=== PATIENT | female | born 1950 | race Caucasian/White ===

== ENCOUNTER → 2016-10-16 | Outpatient (CLI) | payer OTHER ==
[~2016-10-16] MED LIST: ASCO10003 PO; ASPI325T45 PO; ATEN-173 PO; AZAT50TA17 PO; AZAT50TA5 PO; CHOL2000 PO; COEN50CA22 PO; CYAN10002 SC; CYNI1000 INJ; FOLI1TAB7 PO; LEVO175T3 PO; MISCCAP80 PO; MSTSR180 PO; MULTTAB58 PO; NEUROPATHY MED; OMEP40CA PO; OMEP40CA41 PO; PRED10TA PO; PRED20TA2 PO; PROP1CAP PO; PYRI60TA2 PO; RANI300T2 PO; SERT-234 PO
--- NOTE | 2016-10-16 15:48 | MAMMOGRAPHY REPORT ---
BILATERAL DIGITAL SCREENING MAMMOGRAM WITH CAD: 10/16/2016 CLINICAL HISTORY: Routine screening. Patient has no complaints. TECHNIQUE: Current study was also evaluated with a Computer Aided Detection (CAD) system. Bilatera l CC and MLO views were obtained. COMPARISON: Comparison is made to exams dated: 09/23/2015 mammogram, 09/04/2014 mammogram, 08/21/20 13 mammogram, 09/19/2014 mammogram, 08/19/2012 mammogram, and 08/18/2011 mammogram - [facility]. BREAST COMPOSITION: There are scattered areas of fibroglandular density in both breasts. FINDINGS: No suspicious masses, calcifications, or areas of architectural distortion are noted in e ither breast. There has been no significant interval change compared to prior exams. Scattered bilat eral benign-appearing calcifications are not significantly changed. Small mass in the right inferi or breast is marked with a mole marker and consistent with a mole. IMPRESSION: ACR BI-RADS CATEGORY 2: BENIGN There is no mammographic evidence of malignancy. A 1 year screening mammogram is recommended. The p atient will receive written notification of the results. Approximately 10% of breast cancers are not detected with mammography. A negative mammographic repor t should not delay biopsy if a clinically suggestive mass is present. Nancy Rodriguez M.D. /:10/16/2016 14:42:26 Actuarial Technician: Ghislaine BEAN(R)(M), [facility] letter sent: Normal 1/2 BI-RADS Code: ACR BI-RADS Category 2: Benign
== END | disposition home or self-care (01) ==
LOC: C.MAMM 13:40
PROVIDERS: ATTEND Family Medicine
DX: Z12.31 Encounter for screening mammogram for malignant neoplasm of breast (principal)

== ENCOUNTER → 2016-10-19 | Outpatient (CLI) | payer OTHER | END | disposition home or self-care (01) | LOC: C.RDSM 14:27 | PROVIDERS: ATTEND Physical Medicine & Rehabilitation Sports Medicine | DX: Z96.641 Presence of right artificial hip joint (principal) ==

== ENCOUNTER → 2016-11-28 | Outpatient (CLI) | payer OTHER ==
--- NOTE | 2016-11-28 11:52 | DIAGNOSTIC IMAGING REPORT ---
CHEST 2 VIEWS ROUTINE CLINICAL HISTORY: Cough. Asthma. COMPARISON STUDY: Chest radiograph and chest CT August 25, 2016. FINDINGS: There are median sternotomy wires and cholecystectomy clips. There is no pneumothorax or pleural effusion. Cardiomegaly is unchanged. There is no evidence of pulmonary edema. Mild left lower lung opacity is unchanged and favors atelectasis. IMPRESSION: No acute cardiopulmonary findings. No change in appearance of the chest. Electronically signed by: See Joy M.D. 11/28/2016 11:51 AM Dictated Date/Time: 11/28/2016 11:49 AM
== END | disposition home or self-care (01) ==
LOC: C.RAD 11:06
PROVIDERS: ATTEND Family Medicine
DX: R09.89 Other specified symptoms and signs involving the circulatory and respiratory systems (principal); J45.901 Unspecified asthma with (acute) exacerbation; R05 Cough

== ENCOUNTER 2016-12-29 22:26 | Inpatient (IN) | payer OTHER ==
[~2016-12-29] VITALS: Ht 162.6 cm; Wt 89.7 kg
[~2016-12-29 22:26] MED LIST changes: -ASCO10003 PO; -CYNI1000 INJ; -FOLI1TAB7 PO; -MISCCAP80 PO; -NEUROPATHY MED; -OMEP40CA41 PO; -PRED10TA PO
[2016-12-29] MEDS ORDERED: MISCCAP80 PO (22:54)
[2016-12-29] MEDS ORDERED: OMEP40CA41 PO (22:54)
[2016-12-29] MEDS ORDERED: CYNI1000 INJ (22:54)
[2016-12-29] MEDS ORDERED: ASCO10003 PO (22:54)
[2016-12-29] MEDS ORDERED: NEUROPATHY MED (22:54)
[2016-12-29] MEDS ORDERED: PRED10TA PO (22:54)
[2016-12-29] MEDS ORDERED: SODIUM CHLORIDE 0.9% 1000ML 1,000 ML IV ONE (23:04)
[2016-12-29] MEDS ORDERED: ONDANSETRON INJ 2 MG/ML 2 ML VIAL IV STA (23:04)
[2016-12-29] MEDS ORDERED: MoRPHine SULFATE 4 MG/ML 1 ML CARP\\VIAL IV STA (23:04)
[2016-12-29] MEDS ORDERED: SODIUM CHLORIDE 0.9% 1000ML 1,000 ML IV STA (23:04)
--- NOTE | 2016-12-29 23:06 | EMERGENCY ROOM VISIT NOTE ---
History Report prepared by James: Amos Shaw Under the Supervision of: Dr. Ronald Ring M.D. First contact with patient: 22:57 Chief Complaint: ABDOMINAL PAIN Stated Complaint: SEVERE PAIN IN STOMACH AND BACK Nursing Triage Summary: pt reports pain in abdomen and wraps around to back since 1700, worsened after eatin pizza around 1900 + [place] History of Present Illness The patient is a 66 year old female who presents to the Emergency Room with complaints of severe RUQ and LUQ abdominal pain that began 6 hours ago. The patient has had this pain before, but it has never been this severe or lasted this long. She is also having RLQ and LLQ abdominal pain that is not nearly as severe as the upper section. Her pain is radiating into her back as well. She has been vomiting secondary to the pain. The patient states that eating made her symptoms worse. She had an EMG study done today and was told that she may be in the early stages of diabetes. She has been on Prednisone for the past 16 years. She denies any fever, shortness of breath, chest pain, urinary symptoms, or any bowel trouble. She has a vast past medical history that includes a hysterectomy, cholecystectomy, and an appendectomy. Source of History: patient, family Onset: 6 hours ago Position: abdomen (upper quadrant) Symptom Intensity: severe Timing: constant Modifying Factors (Worsening): eating Associated Symptoms: + back pain, + vomiting, No SOB, No chest pain, No diarrhea, No fevers, No hematochezia, No melena, No urinary symptoms Review of Systems See HPI for pertinent positives & negatives. A total of 10 systems reviewed and were otherwise negative. Past Medical & Surgical Medical Problems: (1) Abdominal pain (2) Cholecystectomy (3) Deep venous thrombosis (4) diverticulosis (5) Gastroesophageal reflux disease (6) Hemorrhoids (7) History of - peptic ulcer (8) History of - tubal ligation (9) Hysterectomy (10) Intractable nausea and vomiting (11) Myasthenia gravis Old medical records were reviewed. Nurse's notes were reviewed and I agree with. Family History Cancer Diabetes mellitus Gallbladder disease Heart disease Hypertension Social History Smoking Status: Never Smoker Alcohol Use: none Drug Use: none Marital Status: single Housing Status: lives alone Occupation Status: disabled Current/Historical Medications Scheduled Ascorbic Acid (Vitamin C), 1,000 MG PO QAM Aspirin (Aspirin), 1 TAB PO QAM Atenolol (Tenormin), 12.5 MG PO BID Azathioprine (Imuran), 50 MG PO HS Azathioprine (Imuran), 25 MG PO QAM Cholecalciferol (Vitamin D3), 1 CAP PO QAM Coenzyme Q10 (Ubidecarenone) (Coq10), 1 CAP PO DAILY Cyanocobalamin (Cyanocobalamin), 1,000 MCG INJ Mo Levothyroxine Sodium (Levothyroxine Sodium), 1 TAB PO QAM Multiple Vitamin (Multivitamin), 1 TAB PO DAILY Omeprazole (Prilosec), 40 MG PO QAM Prednisone (Prednisone), 10 MG PO QAM Probiotic Product (Probiotic), 1 CAP PO QAM Propafenone Hcl (Rythmol Sr), 425 MG PO BID Pyridostigmine [place] (Mestinon), 60 MG PO QID Pyridostigmine [place] (Mestinon Timespan), 180 MG PO HS Ranitidine (Zantac), 300 MG PO HS Sertraline (Zoloft), 100 MG PO QAM Miscellaneous Medications [Neuropathy Med] Allergies Coded Allergies: Propoxyphene (Verified Allergy, Mild, MUSCLE PAIN, 12/29/16) Statins (Verified Allergy, Unknown, WEAKNESS, 12/29/16) Physical Exam Vital Signs Date Time Temp Pulse Resp B/P Pulse Ox O2 Delivery O2 Flow Rate FiO2 12/30/16 01:32 72 18 145/68 95 Room Air 12/29/16 23:49 62 18 135/59 97 Room Air 12/29/16 23:17 87 18 138/44 96 Room Air 12/29/16 22:32 36.5 94 18 154/93 97 Room Air Physical Exam General: Mildly uncomfortable appearing middle aged female holding an emesis bin. Well developed well nourished in no acute distress, breathing comfortably on room air. Normal speech. No respiratory distress. HEENT: Normal cephalic atraumatic. Pupils are equal round and reactive to light. Extraocular movements are intact. Oropharynx is pink with moist mucous membranes. No swelling of the mouth lips or tongue. Neck: Supple with a midline trachea. No meningeal signs or stiffness, no JVD or bruits. No Stridor. Chest: Clear to auscultation bilaterally. No wheezes or rhonchi. No increased work of breathing. Heart: regular rate and rhythm. Abdomen: Soft, mildly tender to the epigastric area, nondistended without rebound guarding or rigidity. Extremities: No cyanosis clubbing or edema. No calf tenderness or assymetry Spine/Back. Non tender to palpation. No CVA tenderness Skin: Good turgor without rashes. Neurologic exam: Cranial nerves two through 12 are intact. Motor and sensation are intact and symmetrical throughout. Medical Decision & Procedures ER Provider Diagnostic Interpretation: Radiology results as stated below per my review and radiologist interpretation: CHEST X-RAY: Impression: No pneumothorax, failure, or infiltrate. Per me CT ABDOMEN & PELVIS: Compared to CT abdomen and pelvis 04/21/2016 Dilated, thick-walled distal small bowel loops with associated mesenteric edema. Findings are likely due to enteritis, infectious or inflammatory. Obstruction at the ileocecal valve is in the differential. The colon is decompressed. There are a few colonic diverticula, but no CT evidence of acute diverticulitis. Small hiatal hernia. The appendix is not reliably identifies and may be surgically absent. Cholecystectomy. No CT evidence of acute pancreatitis. No urinary obstruction. Trace free fluid. No free air. Radiologist: Laura Frank M.D. Laboratory Results Test 12/29/16 22:40 12/29/16 22:44 Urine Color DK YELLOW Urine Appearance CLOUDY (CLEAR) Urine pH 5.0 (4.5-7.5) Urine Specific [place] 1.034 (1.000-1.030) Urine Protein TRACE (NEG) Urine Glucose (UA) NEG (NEG) Urine Ketones 1+ (NEG) Urine Occult Blood NEG (NEG) Urine Nitrite NEG (NEG) Urine Bilirubin NEG (NEG) Urine Urobilinogen NEG (NEG) Urine Leukocyte Esterase NEG (NEG) Urine WBC (Auto) 1-5 /hpf (0-5) Urine RBC (Auto) 0-4 /hpf (0-4) Urine Hyaline Casts (Auto) 1-5 /lpf (0-5) Urine Epithelial Cells (Auto) 5-10 /lpf (0-5) Urine Bacteria (Auto) NEG (NEG) Urine Crystals CALCIUM OXALATE (NONE Urine Mucus PRESENT (NONE PRSENT) RDW Standard Deviation 50.1 fL (36.4-46.3) RDW Coefficient of Variation 16.8 % (11.5-14.5) White Blood Count 14.85 K/uL (4.8-10.8) Red Blood Count 4.14 M/uL (4.2-5.4) Hemoglobin 10.7 g/dL (12.0-16.0) Hematocrit 34.1 % (37-47) Mean Corpuscular Volume 82.4 fL (80-100) Mean Corpuscular Hemoglobin 25.8 pg (25-34) Mean Corpuscular Hemoglobin Concent 31.4 g/dl (32-36) Platelet Count 344 K/uL (130-400) Mean Platelet Volume 10.8 fL (7.4-10.4) Neutrophils (%) (Auto) 79.3 % Lymphocytes (%) (Auto) 9.9 % Monocytes (%) (Auto) 9.3 % Eosinophils (%) (Auto) 0.6 % Basophils (%) (Auto) 0.3 % Neutrophils # (Auto) 11.78 K/uL (1.4-6.5) Lymphocytes # (Auto) 1.47 K/uL (1.2-3.4) Monocytes # (Auto) 1.38 K/uL (0.11-0.59) Eosinophils # (Auto) 0.09 K/uL (0-0.5) Basophils # (Auto) 0.04 K/uL (0-0.2) Immature Granulocyte % (Auto) 0.6 % Immature Granulocyte # (Auto) 0.09 K/uL (0.00-0.02) Est Creatinine Clear Calc Drug Dose 50.7 ml/min Estimated Average Glucose 126 mg/dl Hemoglobin A1c 6.0 % (4.5-5.6) Total Bilirubin 0.3 mg/dl (0.2-1) Direct Bilirubin < 0.1 mg/dl (0-0.2) Aspartate Amino Transf (AST/SGOT) 15 U/L (15-37) Alanine Aminotransferase (ALT/SGPT) 31 U/L (12-78) Alkaline Phosphatase 60 U/L (45-117) Total Protein 7.5 gm/dl (6.4-8.2) Albumin 4.1 gm/dl (3.4-5.0) Lipase 156 U/L (73-393) Laboratory studies as stated above per my review. Medications Administered Medications (Trade) Dose Ordered Sig/Baldo Route Start Time Stop Time Status Last Admin Dose Admin Sodium Chloride 1,000 ml @ 999 mls/hr Q1H1M STAT IV 12/29/16 23:04 12/30/16 00:04 DC 12/29/16 23:12 999 MLS/HR Sodium Chloride (Nss 1000ml) 1,000 ml @ 200 mls/hr Q5H ONCE IV 12/29/16 23:04 12/30/16 03:07 DC 12/30/16 00:09 200 MLS/HR Ondansetron HCl (Zofran Inj) 4 mg NOW STAT IV 12/29/16 23:04 12/29/16 23:05 DC 12/29/16 23:11 4 MG Morphine Sulfate (MoRPHine SULFATE INJ) 4 mg NOW STAT IV 12/29/16 23:04 12/29/16 23:05 DC 12/29/16 23:11 4 MG Morphine Sulfate (MoRPHine SULFATE INJ) 4 mg NOW STAT IV 12/30/16 00:24 12/30/16 00:25 DC 12/30/16 00:28 4 MG Morphine Sulfate (MoRPHine SULFATE INJ) 4 mg NOW STAT IV 12/30/16 01:23 12/30/16 01:24 DC 12/30/16 01:31 4 MG ECG Indication: abdominal pain Rate (beats per minute): 69 Rhythm: normal sinus Findings: nonspecific-ST abn, other (nonspecific - T wave abnormalities) Comparison ECG Date: 25 Aug 2016 Change: no significant change ED Course 2257: Past medical records reviewed. The patient was evaluated in room B10, and a complete history and physical examination were performed. 2304: Morphine Sulfate 4 mg IV, Zofran Inj 4 mg IV, Sodium Chloride 1000 ml @ 200 mls/hr IV, Sodium Chloride 1000 ml @ 999 mls/hr IV 0005: The patient feels better after the medications. 0024: Morphine Sulfate 4 mg IV 0120: The patient requested more pain medications. She will be evaluated further as an inpatient. 0123: Morphine Sulfate 4 mg IV 0142: Upon reevaluation, the patient is resting. I discussed the results and treatment plan with the patient. She verbalized agreement of the treatment plan. The patient will be evaluated by Dr. Lemuel PUTNAM, for further management. Medical Decision Differentials include infection, electrolyte or metabolic abnormality, pancreatitis, bowel obstruction, gastritis, gastroparesis, acute coronary syndrome, and UTI. This patient comes in as described above. She was placed in room B 10. She is here for treatment and evaluation of epigastric abdominal pain. She feels full and has had some nausea. This came on at 5:00. her gallbladder from previously removed. I did review her chart she's had symptoms like this in the past and had a nuclear medicine study last year which showed normal gastric emptying. She did have a thoracic CT done within the last year and there is no aneurysm at the time. IV access established was hydrated with IV normal saline. EKG, chest x-ray, multiple blood testing was obtained. She was given IV morphine 4 mg and Zofran 4 mg IV for pain and nausea management. She was reassessed frequently. Her white count is mildly elevated. She's no significant electrode and metabolic abnormalities. She has nothing she has liver gallbladder pancreas disease. Her gallbladder has been previously removed. I did a CAT scan she does have nonspecific enteritis. She has received several doses of IV pain medication. I do think needs to be admitted for IV hydration and further treatment and evaluation. I have consulted the hospitalist. Consults Time Called: 0140 Consulting Physician: Dr. Lemuel PUTNAM Returned Call: [phone] They will be evaluating the patient for further management. Impression Primary Impression: Enteritis Additional Impressions: Vomiting Epigastric abdominal pain Scribe Attestation The scribe's documentation has been prepared under my direction and personally reviewed by me in its entirety. I confirm that the note above accurately reflects all work, treatment, procedures, and medical decision making performed by me. Departure Information Dispostion Being Evaluated By Hospitalist Referrals Deng Lezama D.O. (PCP) Patient Instructions My [facility] Problem Qualifiers
[2016-12-29 23:10] LABS: BASO % 0.3 %; BASO ABS # 0.04 K/uL (0-0.2); COMPLETE YES; EOS % 0.6 %; HEMATOCRIT 34.1 % (37-47); IG% 0.6 %; LYMPH % 9.9 %; LYMPH ABS # 1.47 K/uL (1.2-3.4); MEAN CELL VOLUME 82.4 fL (80-100); MEAN CORPUSCULAR HEMOGLOBIN 25.8 pg (25-34); MEAN CORPUSCULAR HGB CONC 31.4 g/dl (32-36); MEAN PLATELET VOLUME 10.8 fL (7.4-10.4); MONO % 9.3 %; NEUT % 79.3 %; PLATELET COUNT 344 K/uL (130-400); RED BLOOD COUNT 4.14 M/uL (4.2-5.4); WHITE BLOOD COUNT 14.85 K/uL (4.8-10.8)
[2016-12-29 23:23] LABS: ALT/SGPT 31 U/L (12-78); AST/SGOT 15 U/L (15-37); BLOOD UREA NITROGEN 18 mg/dl (7-18); BUN/CREATININE RATIO 14.9 (10-20); CALCIUM 9.7 mg/dl (8.5-10.1); CARBON DIOXIDE 24 mmol/L (21-32); CHLORIDE 109 mmol/L (98-107); GLUCOSE 114 mg/dl (70-99); POTASSIUM 3.9 mmol/L (3.5-5.1); SODIUM 146 mmol/L (136-145)
[2016-12-29 23:26] LABS: ALKALINE PHOSPHATASE 60 U/L (45-117)
[2016-12-30] MEDS ORDERED: MoRPHine SULFATE 4 MG/ML 1 ML CARP\\VIAL IV STA ×2 (00:24→01:23)
[2016-12-30] MEDS ORDERED: OPTIRAY 320 IV PRN (00:30)
[2016-12-30] MEDS ORDERED: MAGNESIUM HYDROXIDE SUSP 30 ML UDC PO PRN (02:00)
[2016-12-30] MEDS ORDERED: ONDANSETRON INJ 2 MG/ML 2 ML VIAL IV PRN (02:00)
[2016-12-30] MEDS ORDERED: POLYETHYLENE (MIRALAX) 17 GM PACK PO PRN (02:00)
[2016-12-30] MEDS ORDERED: ALUMINUM/MAGNESIUM/SIMETH (MAALOX MAX) 30 ML UDC PO PRN (02:00)
[2016-12-30] MEDS ORDERED: ACETAMINOPHEN 325 MG TAB PO PRN (02:00)
[2016-12-30] MEDS ORDERED: ZOLPIDEM TARTRATE 5 MG TAB PO PRN (02:00)
--- NOTE | 2016-12-30 02:16 | History and Physical ---
History & Physical Date & Time of Service: Dec 30, 2016 at 02:00 Chief Complaint: Severe Pain In Stomach And Back Primary Care Physician: Deng Lezama D.O. History of Present Illness Source: patient, family Cassidy Cisneros is a 66 yo F with myasthenia gravis, who is s/p cholecystectomy , hysterectomy, and appendectomy who presents with severe abdominal pain, nausea , and vomiting since 5pm yesterday. She reports she was sitting, had severe pain in the epigastrium, and then noticed it spread laterally in her abdomen. She had a formed bowel movement at that time. She ate a piece of pizza (which her daughter also ate, and she is fine) and noticed the pain got worse in severity. She was vomiting at home, then stopped upon receiving Zofran. She feels thirsty but that her pain is still intermittent, to a lesser severity but present and concerning for her. Past Medical/Surgical History Medical Problems: (1) Cholecystectomy Status: Resolved (2) Deep venous thrombosis Status: Resolved (3) diverticulosis Status: Chronic (4) Gastroesophageal reflux disease Status: Chronic (5) Hemorrhoids Status: Chronic (6) History of - peptic ulcer Status: Resolved (7) History of - tubal ligation Status: Resolved (8) Hysterectomy Status: Resolved (9) Myasthenia gravis Status: Chronic Family History Cancer Diabetes mellitus Gallbladder disease Heart disease Hypertension Social History Smoking Status: Never Smoker Drug Use: none Marital Status: single Occupational Status: disabled Immunizations History of Influenza Vaccine: No Influenza Vaccine Date: Jul 13, 2008 History of Tetanus Vaccine?: No History of Pneumococcal: No History of Hepatitis B Vaccine: No Multi-Drug Resistant Organisms History of MDRO: No Allergies Coded Allergies: Propoxyphene (Verified Allergy, Mild, MUSCLE PAIN, 12/29/16) Statins (Verified Allergy, Unknown, WEAKNESS, 12/29/16) Home Medications Scheduled Ascorbic Acid (Vitamin C), 1,000 MG PO QAM Aspirin (Aspirin), 1 TAB PO QAM Atenolol (Tenormin), 12.5 MG PO BID Azathioprine (Imuran), 50 MG PO HS Azathioprine (Imuran), 25 MG PO QAM Cholecalciferol (Vitamin D3), 1 CAP PO QAM Coenzyme Q10 (Ubidecarenone) (Coq10), 1 CAP PO DAILY Cyanocobalamin (Cyanocobalamin), 1,000 MCG INJ Mo Levothyroxine Sodium (Levothyroxine Sodium), 1 TAB PO QAM Multiple Vitamin (Multivitamin), 1 TAB PO DAILY Omeprazole (Prilosec), 40 MG PO QAM Prednisone (Prednisone), 10 MG PO QAM Probiotic Product (Probiotic), 1 CAP PO QAM Propafenone Hcl (Rythmol Sr), 425 MG PO BID Pyridostigmine [place] (Mestinon), 60 MG PO QID Pyridostigmine [place] ([place]est[place]on Timespan), 180 MG PO HS Ranitidine (Zantac), 300 MG PO HS Sertraline (Zoloft), 100 MG PO QAM Miscellaneous Medications [Neuropathy Med] Review of Systems See HPI for pertinent positives & negatives. A total of 10 systems reviewed and were otherwise negative. Physical Exam Vital Signs Date Time Temp Pulse Resp B/P Pulse Ox O2 Delivery O2 Flow Rate FiO2 12/30/16 01:32 72 18 145/68 95 Room Air 12/29/16 23:49 62 18 135/59 97 Room Air 12/29/16 23:17 87 18 138/44 96 Room Air 12/29/16 22:32 36.5 94 18 154/93 97 Room Air General Appearance: WD/WN, + moderate distress, + obese, + pertinent finding ( Cushingoid facies) Head: normocephalic, atraumatic Eyes: normal inspection ENT: hearing grossly normal Neck: supple, no JVD Respiratory/Chest: lungs clear, normal breath sounds, no respiratory distress Cardiovascular: regular rate, rhythm, no murmur, normal peripheral pulses Abdomen/GI: soft, + tenderness (epigastrium, LLQ, RLQ) Back: no CVA tenderness, no muscle spasm Extremities/Musculoskelatal: no calf tenderness, no pedal edema Neurologic/Psych: alert, normal mood/affect, normal reflexes, oriented x 3 Skin: no rash Diagnostics Laboratory Results Results Past 24 Hours Test 12/29/16 22:44 Range/Units White Blood Count 14.85 4.8-10.8 K/uL Red Blood Count 4.14 4.2-5.4 M/uL Hemoglobin 10.7 12.0-16.0 g/dL Hematocrit 34.1 37-47 % Mean Corpuscular Volume 82.4 80-100 fL Mean Corpuscular Hemoglobin 25.8 25-34 pg Mean Corpuscular Hemoglobin Concent 31.4 32-36 g/dl Platelet Count 344 130-400 K/uL Mean Platelet Volume 10.8 7.4-10.4 fL Neutrophils (%) (Auto) 79.3 % Lymphocytes (%) (Auto) 9.9 % Monocytes (%) (Auto) 9.3 % Eosinophils (%) (Auto) 0.6 % Basophils (%) (Auto) 0.3 % Neutrophils # (Auto) 11.78 1.4-6.5 K/uL Lymphocytes # (Auto) 1.47 1.2-3.4 K/uL Monocytes # (Auto) 1.38 0.11-0.59 K/uL Eosinophils # (Auto) 0.09 0-0.5 K/uL Basophils # (Auto) 0.04 0-0.2 K/uL RDW Standard Deviation 50.1 36.4-46.3 fL RDW Coefficient of Variation 16.8 11.5-14.5 % Immature Granulocyte % (Auto) 0.6 % Immature Granulocyte # (Auto) 0.09 0.00-0.02 K/uL Sodium Level 146 136-145 mmol/L Potassium Level 3.9 3.5-5.1 mmol/L Chloride Level 109 98-107 mmol/L Carbon Dioxide Level 24 21-32 mmol/L Anion Gap 13.0 3-11 mmol/L Blood Urea Nitrogen 18 7-18 mg/dl Creatinine 1.20 0.60-1.20 mg/dl Est Creatinine Clear Calc Drug Dose 50.7 ml/min Estimated GFR () 54.9 Estimated GFR (Non- 47.4 BUN/Creatinine Ratio 14.9 10-20 Random Glucose 114 70-99 mg/dl Calcium Level 9.7 8.5-10.1 mg/dl Total Bilirubin 0.3 0.2-1 mg/dl Direct Bilirubin < 0.1 0-0.2 mg/dl Aspartate Amino Transf (AST/SGOT) 15 15-37 U/L Alanine Aminotransferase (ALT/SGPT) 31 12-78 U/L Alkaline Phosphatase 60 45-117 U/L Total Protein 7.5 6.4-8.2 gm/dl Albumin 4.1 3.4-5.0 gm/dl Lipase 156 73-393 U/L Microbiology Results 12/29/16 Urine Culture, Received Pending Diagnostic Radiology CT Report: ([facility]) - nonspecific findings (gastroenteritis, inflammation) with mesenteric edema. obstruction at ileocecal valve is in differential. 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 Differential includes : bowel obstruction, peptic ulcer, reflux, hernia, or gastroenteritis. Plan: Abdominal pain - Continue morphine 4mg IV q4h, adjust accordingly in AM Nausea/vomiting - Continue Zofran - IV fluids Myasthenia gravis - Continue home neostigmine - Will provide stress dose steroids (20mg tomorrow) from home dose 10mg. If is not tolerating this PO, will switch to hydrocortisone IV Level of Care Med/Surg Resuscitation Status FULL RESUSCITATION VTE Prophylaxis VTE Risk Assessment Done? Y/N: Yes Risk Level: Moderate Resident Tracking Resident Involvement: Resident Care Provided Care Provided: [facility] Assessment and Plan Attending Addendum: I have physically seen and examined this patient, have directed their medical care, have supervised the medical residents activities, and agree with the H&P as noted above, with the following changes: The patient is awake, alert and oriented 3, cushingoid, lying in bed and in no acute distress. HEENT--PERRL, EOMI, mucous membranes and oropharynx dry. Neck--supple, no JVD or bruits, thyroid normal, trachea midline, no adenopathy. Heart--normal S1 and S2, no extra beats, no murmurs, rubs or gallops. Lungs--clear bilaterally with good air movement, no respiratory distress, no accessory muscle use. Abdomen--normal bowel sounds and soft, mild tenderness epigastrium, nondistended , no hernias or masses, no organomegaly. Extremities--no cyanosis, clubbing or edema. There are good distal pulses b/l. Dermatologic--normal skin turgor, normal color, warm and dry, no abnormal lymph nodes, no rash. Neurologic--cranial nerves II through XII grossly intact, motor and sensory examination normal. Rheumatologic--normal range of motion, nontender, muscles and joints. Psychiatric--normal affect. Assessment and Plan: Intractable nausea, vomiting and abdominal pain--patient be admitted to the medical floor. Will keep nothing by mouth except medications. Place on IV fluids, Zofran 4 mg IV every 6 hours when necessary, Protonix 40 mg IV daily, morphine sulfate 2-4 mg IV to 4 hours when necessary. Follow clinical examination. Her symptoms are likely brought on by eating too many nuts. The day before she ate a lot of sunflower seeds, and the day of admission she a lot of walnuts. She is advised to avoid excess amounts of these in the future. Myasthenia gravis--continue as a diaphragm 25 mg by mouth every morning and 50 mg by mouth at bedtime, Mestinon 60 mg by mouth 4 times a day and Mestinon Timespan 180 mg by mouth at bedtime. We'll increase prednisone from 10 mg to 20 mg by mouth every morning for stress dose. Hypertension/dysrhythmia--continue atenolol 12.5 mg by mouth twice a day, and Rythmol SR 425 mg by mouth twice a day. Hypothyroidism--continue levothyroxine sodium at 175g by mouth daily. GERD--change omeprazole 40 mg by mouth every morning to pantoprazole 40 mg by mouth every morning, and Zantac 300 mg by mouth at bedtime. Depression--continue sertraline 100 mg by mouth every morning.
[2016-12-30 02:35] LABS: URINE APPEARANCE CLOUDY (CLEAR); URINE BILIRUBIN NEG (NEG); URINE COLOR DK YELLOW; URINE NITRITE NEG (NEG); URINE SPECIFIC GRAVITY 1.034 (1.000-1.030); UROBILINOGEN NEG (NEG)
[2016-12-30 02:38] LABS: MANUAL MICROSCOPIC REQUIRED? NO; REVIEW REQ? YES
[2016-12-30 02:45] VITALS: BP 154/75; PULSE 68; TEMP 37; O2SAT 95; Ht 162.6 cm; Wt 89.7 kg
[2016-12-30 02:50] LABS: URINE MUCUS PRESENT (NONE PRSENT)
[2016-12-30 02:56] VITALS: BP 154/75; PULSE 68; TEMP 37; O2SAT 93
[2016-12-30] MEDS: FAMOTIDINE IV INJ 20 MG in DEXTROSE 5% 100ML 100 ML IV SCH ×2 (04:19→17:11)
[2016-12-30] MEDS: METRONIDAZOLE / NSS 500 MG in PREMIXED NSS 100 ML IV SCH ×3 (05:42→22:21)
[2016-12-30] MEDS: LEVOTHYROXINE 175 MCG TAB PO SCH (06:02)
[2016-12-30] MEDS: CIPROFLOXACIN / D5W 400 MG in PREMIXED IN D5W 200 ML IV SCH ×2 (06:02→18:17)
[2016-12-30 06:20] LABS: PROTHROMBIN TIME (PATIENT) 10.3 SECONDS (9.0-12.0)
--- NOTE | 2016-12-30 06:29 | CONSULTATION REPORT ---
DATE OF CONSULTATION: 12/30/2016 REASON FOR CONSULTATION: Abdominal pain, nausea and vomiting. HISTORY OF PRESENT ILLNESS: The patient is a 66-year-old female who was doing relatively well at home and then began to experience abdominal pain and then nausea and vomiting over the past 24 hours, presenting to the Emergency Room. She did apparently have a bowel movement near the time of this happening. She is on prednisone 10 mg every day with a history of myasthenia gravis. She also has a history of cholecystectomy, hysterectomy, appendectomy and tubal ligation. She did undergo CT scan which showed some very mildly dilated small-bowel loops with some mild thickening of the distal ileum, consistent with possible enteritis, inflammatory versus infectious. She has no overt abscess noted or free air. FAMILY AND SOCIAL HISTORY: Noncontributory. ALLERGIES: SHE DOES HAVE ALLERGIES TO PROPOXYPHENE AND STATINS. REVIEW OF SYSTEMS: See HPI for positive review. Otherwise, no fever, chills, cough, shortness of breath, chest pain, diarrhea, joint pain, dysuria, fatigue, bleeding, rash. PHYSICAL EXAMINATION: GENERAL: She is in no distress. HEAD: Atraumatic. EYES: Normal sclerae. NECK: Supple. LUNGS: No respiratory distress. CARDIOVASCULAR: Regular rate and rhythm. ABDOMEN: Very mildly distended but relatively soft and nontender with normal bowel sounds. EXTREMITIES: Without edema. SKIN: Warm and dry with no rash. I did review her CAT scan. ASSESSMENT AND PLAN: A 66-year-old female admitted with abdominal pain, nausea and vomiting. The abdominal pain has improved significantly. We will continue her on IV fluids and I have added antibiotics in that she may have an infectious enteritis. We will try to check stool studies, although this may be somewhat difficult. I do not think she needs an NG tube at the present time unless she starts vomiting.
--- NOTE | 2016-12-30 06:46 | DIAGNOSTIC IMAGING REPORT ---
CHEST ONE VIEW PORTABLE CLINICAL HISTORY: CHEST PAIN dyspnea COMPARISON STUDY: 11/28/2016 FINDINGS: Mild stable cardiomegaly. Prior median sternotomy. Lungs are clear. IMPRESSION: No acute process. Mild stable cardiomegaly. Electronically signed by: Alex Oshea M.D. 12/30/2016 6:44 AM Dictated Date/Time: 12/30/2016 6:44 AM
--- NOTE | 2016-12-30 07:06 | DIAGNOSTIC IMAGING REPORT ---
ABDOMEN AND PELVIS CT WITH IV CONTRAST CT DOSE: 1078.20 mGycm HISTORY: Pain eval for obit, colitis TECHNIQUE: Multiaxial CT images of the abdomen and pelvis were performed following the use of intravenous contrast. COMPARISON STUDY: 04/21/2016 FINDINGS: Slight bibasilar interstitial prominence. Liver is uniform throughout. Prior cholecystectomy. Pancreas is unremarkable. Kidneys are negative for hydronephrosis. Mild nonobstructive ileus. This may be secondary to a nonspecific enteritis. Bladder is midline. Total right hip prosthetic. No evidence for colonic distention. IMPRESSION: Mild small bowel ileus versus enteritis. Prior cholecystectomy. Electronically signed by: Alex Oshea M.D. 12/30/2016 7:04 AM Dictated Date/Time: 12/30/2016 7:00 AM
[2016-12-30 07:09] LABS: ESTIMATED AVERAGE GLUCOSE 126 mg/dl; HA1C FLAG Normal (Normal)
[2016-12-30] MEDS ORDERED: SODIUM CHLORIDE 0.9% 1000ML 1,000 ML IV SCH (07:15)
[2016-12-30 07:24] VITALS: BP 131/56; PULSE 75; TEMP 37.1; O2SAT 92
[2016-12-30 07:50] LABS: HEMATOCRIT 28.8 % (37-47); MEAN CELL VOLUME 83.2 fL (80-100); MEAN CORPUSCULAR HEMOGLOBIN 25.4 pg (25-34); MEAN CORPUSCULAR HGB CONC 30.6 g/dl (32-36); MEAN PLATELET VOLUME 10.3 fL (7.4-10.4); PLATELET COUNT 238 K/uL (130-400); RED BLOOD COUNT 3.46 M/uL (4.2-5.4); WHITE BLOOD COUNT 8.86 K/uL (4.8-10.8)
[2016-12-30] MEDS: [UNRECOGNIZED DRUG - REMARK] SCH ×2 (07:58→08:32)
[2016-12-30 08:14] LABS: BUN/CREATININE RATIO 15.4 (10-20); CALCIUM 8.2 mg/dl (8.5-10.1); CREATININE 0.92 mg/dl (0.60-1.20); POTASSIUM 3.8 mmol/L (3.5-5.1)
[2016-12-30] MEDS: PANTOprazole INJ 40 MG in SYRINGE 0 ML IV SCH ×2 (09:21→20:55)
[2016-12-30] MEDS: ASPIRIN 325 MG ECTAB PO SCH (09:22)
[2016-12-30] MEDS: PYRIDOSTIGMINE BROMIDE 60 MG TAB PO SCH ×4 (09:22→21:00)
[2016-12-30] MEDS: AZATHIOPRINE 50 MG TAB PO SCH (09:23)
[2016-12-30] MEDS: SERTRALINE HCL 100 MG TAB PO SCH (09:23)
[2016-12-30] MEDS: HEPARIN SOD 5000 UNIT/0.5 ML CARP SQ SCH ×2 (09:35→21:10)
[2016-12-30 15:55] VITALS: BP 143/67; PULSE 64; TEMP 36.9; O2SAT 94
--- NOTE | 2016-12-30 16:49 | Family Medicine Progress Note ---
Progress Note Date of Service Dec 30, 2016. Subjective Pt evaluation today including: conversation w/ patient, physical exam, chart review, lab review, review of studies Pain: 0/10 PO Intake: improving Voiding: no voiding problems Patient's abdominal pain has resolved however still getting bouts of nausea with meals Will be advancing diet as tolerated questions and concerns addressed Constitutional: No fever Eyes: No worsening of vision ENT: No hearing loss Respiratory: No cough, No dyspnea on exertion, No shortness of breath, No sputum, No wheezing Cardiovascular: No chest pain Abdomen: + nausea, No constipation, No diarrhea, No pain, No vomiting Musculoskeletal: No joint pain Neurologic: No balance problems, No weakness Psychiatric: No depression symptoms Endo: No fatigue Skin: No rash Medications Medications Administered Medications (Trade) Dose Ordered Sig/Baldo Route Start Time Stop Time Status Last Admin Dose Admin Sodium Chloride 1,000 ml @ 999 mls/hr Q1H1M STAT IV 12/29/16 23:04 12/30/16 00:04 DC 12/29/16 23:12 999 MLS/HR Sodium Chloride (Nss 1000ml) 1,000 ml @ 200 mls/hr Q5H ONCE IV 12/29/16 23:04 12/30/16 03:07 DC 12/30/16 00:09 200 MLS/HR Ondansetron HCl (Zofran Inj) 4 mg NOW STAT IV 12/29/16 23:04 12/29/16 23:05 DC 12/29/16 23:11 4 MG Morphine Sulfate (MoRPHine SULFATE INJ) 4 mg NOW STAT IV 12/29/16 23:04 12/29/16 23:05 DC 12/29/16 23:11 4 MG Morphine Sulfate (MoRPHine SULFATE INJ) 4 mg NOW STAT IV 12/30/16 00:24 12/30/16 00:25 DC 12/30/16 00:28 4 MG Morphine Sulfate (MoRPHine SULFATE INJ) 4 mg NOW STAT IV 12/30/16 01:23 12/30/16 01:24 DC 12/30/16 01:31 4 MG Ondansetron HCl (Zofran Inj) 4 mg Q6H PRN IV 12/30/16 02:00 01/29/17 01:59 12/30/16 09:44 4 MG Heparin Sodium (Porcine) (Heparin Sq 5000 Unit/0.5ml) 5,000 unit Q12H SQ 12/30/16 07:00 01/29/17 01:59 12/30/16 09:35 5,000 UNIT Aspirin (Ecotrin Tab) 325 mg QAM PO 12/30/16 09:00 01/29/17 08:59 12/30/16 09:22 325 MG Atenolol (Tenormin Tab) 12.5 mg BID PO 12/30/16 09:00 01/29/17 08:59 12/30/16 09:23 12.5 MG Azathioprine (Imuran Tab) 25 mg QAM PO 12/30/16 09:00 01/29/17 08:59 12/30/16 09:23 25 MG Levothyroxine Sodium (Synthroid Tab) 175 mcg DAILYBB PO 12/30/16 06:00 01/29/17 06:59 12/30/16 06:02 175 MCG Miscellaneous Information (Order Awaiting Action) 1 ea QS N/A 12/30/16 08:00 12/30/16 10:33 DC 12/30/16 08:32 1 EA Pyridostigmine [place] (Mestinon Tab) 60 mg QID PO 12/30/16 09:00 01/29/17 08:59 12/30/16 13:52 60 MG Sertraline HCl (Zoloft Tab) 100 mg QAM PO 12/30/16 09:00 01/29/17 08:59 12/30/16 09:23 100 MG Miscellaneous Information 1 ea 1 ea QS N/A 12/30/16 08:00 12/30/16 10:32 DC 12/30/16 08:32 1 EA Famotidine 20 mg/ Dextrose 102 ml @ 200 mls/hr Q12H IV 12/30/16 04:00 01/29/17 03:59 12/30/16 04:19 200 MLS/HR Pantoprazole Sodium/Syringe (Protonix Inj/ Syringe) 10 ml @ 5 mls/min DAILY@ IV 12/30/16 09:00 01/29/17 08:59 12/30/16 09:21 5 MLS/MIN Prednisone 20 mg 20 mg DAILY PO 12/30/16 09:00 01/29/17 08:59 12/30/16 09:22 20 MG Ciprofloxacin/ Dextrose 400 mg/ Prmx 200 ml @ 100 mls/hr Q12H IV 12/30/16 06:00 01/09/17 05:59 12/30/16 06:02 100 MLS/HR Metronidazole 500 mg/Prmx 100 ml @ 100 mls/hr Q8 IV 12/30/16 06:00 01/09/17 05:59 12/30/16 13:52 100 MLS/HR Sodium Chloride (Nss 1000ml) 1,000 ml @ 125 mls/hr Q8H IV 12/30/16 07:15 12/31/16 07:14 12/30/16 09:21 125 MLS/HR Objective Vital Signs Date Time Temp Pulse Resp B/P Pulse Ox O2 Delivery O2 Flow Rate FiO2 12/30/16 15:55 36.9 64 16 143/67 94 Room Air 12/30/16 07:50 Room Air 12/30/16 07:24 37.1 75 18 131/56 92 Room Air 12/30/16 03:30 Room Air 12/30/16 02:56 37.0 68 18 154/75 93 Room Air 12/30/16 02:45 37.0 68 17 154/75 95 Room Air 12/30/16 02:31 71 18 140/54 96 Room Air 12/30/16 01:32 72 18 145/68 95 Room Air 12/29/16 23:49 62 18 135/59 97 Room Air 12/29/16 23:17 87 18 138/44 96 Room Air 12/29/16 22:32 36.5 94 18 154/93 97 Room Air Physical Exam General Appearance: no apparent distress Eyes: normal inspection ENT: normal ENT inspection Neck: supple Respiratory/Chest: normal breath sounds, no respiratory distress, no accessory muscle use Cardiovascular: regular rate, rhythm, no murmur Abdomen: normal bowel sounds, non tender, soft Extremities: non-tender, normal inspection, no pedal edema, no calf tenderness Neurologic/Psychiatric: alert, normal mood/affect, oriented x 3 Skin: normal color, warm/dry, no rash Lymphatic: no adenopathy Laboratory Results Results Past 24 Hours Test 12/29/16 22:40 12/29/16 22:44 12/30/16 06:01 Range/Units Urine Color DK YELLOW Urine Appearance CLOUDY CLEAR Urine pH 5.0 4.5-7.5 Urine Specific [place] 1.034 1.000-1.030 Urine Protein TRACE NEG Urine Glucose (UA) NEG NEG Urine Ketones 1+ NEG Urine Occult Blood NEG NEG Urine Nitrite NEG NEG Urine Bilirubin NEG NEG Urine Urobilinogen NEG NEG Urine Leukocyte Esterase NEG NEG Urine WBC (Auto) 1-5 0-5 /hpf Urine RBC (Auto) 0-4 0-4 /hpf Urine Hyaline Casts (Auto) 1-5 0-5 /lpf Urine Epithelial Cells (Auto) 5-10 0-5 /lpf Urine Bacteria (Auto) NEG NEG Urine Crystals CALCIUM OXALATE NONE PRSENT Urine Mucus PRESENT NONE PRSENT White Blood Count 14.85 8.86 4.8-10.8 K/uL Red Blood Count 4.14 3.46 4.2-5.4 M/uL Hemoglobin 10.7 8.8 12.0-16.0 g/dL Hematocrit 34.1 28.8 37-47 % Mean Corpuscular Volume 82.4 83.2 80-100 fL Mean Corpuscular Hemoglobin 25.8 25.4 25-34 pg Mean Corpuscular Hemoglobin Concent 31.4 30.6 32-36 g/dl Platelet Count 344 238 130-400 K/uL Mean Platelet Volume 10.8 10.3 7.4-10.4 fL Neutrophils (%) (Auto) 79.3 % Lymphocytes (%) (Auto) 9.9 % Monocytes (%) (Auto) 9.3 % Eosinophils (%) (Auto) 0.6 % Basophils (%) (Auto) 0.3 % Neutrophils # (Auto) 11.78 1.4-6.5 K/uL Lymphocytes # (Auto) 1.47 1.2-3.4 K/uL Monocytes # (Auto) 1.38 0.11-0.59 K/uL Eosinophils # (Auto) 0.09 0-0.5 K/uL Basophils # (Auto) 0.04 0-0.2 K/uL RDW Standard Deviation 50.1 51.4 36.4-46.3 fL RDW Coefficient of Variation 16.8 17.2 11.5-14.5 % Immature Granulocyte % (Auto) 0.6 % Immature Granulocyte # (Auto) 0.09 0.00-0.02 K/uL Sodium Level 146 146 136-145 mmol/L Potassium Level 3.9 3.8 3.5-5.1 mmol/L Chloride Level 109 113 98-107 mmol/L Carbon Dioxide Level 24 27 21-32 mmol/L Anion Gap 13.0 6.0 3-11 mmol/L Blood Urea Nitrogen 18 14 7-18 mg/dl Creatinine 1.20 0.92 0.60-1.20 mg/dl Est Creatinine Clear Calc Drug Dose 50.7 66.1 ml/min Estimated GFR () 54.9 75.7 Estimated GFR (Non- 47.4 65.3 BUN/Creatinine Ratio 14.9 15.4 10-20 Random Glucose 114 111 70-99 mg/dl Estimated Average Glucose 126 mg/dl Hemoglobin A1c 6.0 4.5-5.6 % Calcium Level 9.7 8.2 8.5-10.1 mg/dl Total Bilirubin 0.3 0.2-1 mg/dl Direct Bilirubin < 0.1 0-0.2 mg/dl Aspartate Amino Transf (AST/SGOT) 15 15-37 U/L Alanine Aminotransferase (ALT/SGPT) 31 12-78 U/L Alkaline Phosphatase 60 45-117 U/L Total Protein 7.5 6.4-8.2 gm/dl Albumin 4.1 3.4-5.0 gm/dl Lipase 156 73-393 U/L Prothrombin Time 10.3 9.0-12.0 SECONDS Prothromb Time International Ratio 1.0 0.9-1.1 Hepatitis C Antibody Screen NEG NEG Microbiology Results 12/29/16 Urine Culture, Received Pending Assessment and Plan 66 yo F with multiple previous abdominal surgeries and intermediate prednisone use presents with severe abdominal pain, nausea, and vomiting secondary to ileus vs enteritis Abdominal pain secondary to small bowel ileus vs enteritis - Continue morphine 4mg IV q4h, adjust accordingly in AM - general surg consult- appreciate input - cipro and flagyl cont - if patient continues to improve may consider d/c - advance diet as tolerated - d/c IVF Nausea/vomiting secondary to ileus/ enteritis - Continue Zofran - IV fluids Myasthenia gravis - Continue home neostigmine and steroid Depression - cont sertraline Hypothyroid - cont synthroid HTN - cont atenolol Resident Physician Supervision Note: I interviewed and examined the patient. Discussed with Dr. Moya and agree with findings and plan as documented in the note. Any exceptions or clarifications are listed here: None Documented By: Aleks Garcia feeling better belly doing better eating better still not back to normal yet vitals noted see EMR pleasant nad, abd mildly distended nontender no guarding no rebound no masses no organomegaly normal bowel sounds SBO - improving. as above. hopefully home tomorrow
[2016-12-30] MEDS: PROPAFENONE HCL 425 MG PO SCH (20:56)
[2016-12-30] MEDS ORDERED: AZATHIOPRINE 50 MG TAB PO SCH (21:00)
[2016-12-30] MEDS ORDERED: PYRIDOSTIGMINE BROMIDE 180 MG SUSTAINED REL TAB PO SCH (21:00)
[2016-12-30 23:55] VITALS: BP 135/68; PULSE 60; TEMP 36.8; O2SAT 92
[2016-12-31] MEDS: FAMOTIDINE IV INJ 20 MG in DEXTROSE 5% 100ML 100 ML IV SCH (03:54)
[2016-12-31] MEDS: METRONIDAZOLE / NSS 500 MG in PREMIXED NSS 100 ML IV SCH (05:40)
[2016-12-31] MEDS: LEVOTHYROXINE 175 MCG TAB PO SCH (05:40)
[2016-12-31] MEDS: CIPROFLOXACIN / D5W 400 MG in PREMIXED IN D5W 200 ML IV SCH (05:40)
[2016-12-31] MEDS: HEPARIN SOD 5000 UNIT/0.5 ML CARP SQ SCH (05:50)
[2016-12-31 05:58] LABS: BASO % 0.3 %; BASO ABS # 0.02 K/uL (0-0.2); EOS % 0.9 %; HEMATOCRIT 27.4 % (37-47); IG% 0.3 %; LYMPH % 12.1 %; LYMPH ABS # 0.89 K/uL (1.2-3.4); MEAN CELL VOLUME 82.8 fL (80-100); MEAN CORPUSCULAR HEMOGLOBIN 25.4 pg (25-34); MEAN CORPUSCULAR HGB CONC 30.7 g/dl (32-36); MEAN PLATELET VOLUME 10.1 fL (7.4-10.4); MONO % 12.5 %; NEUT % 73.9 %; PLATELET COUNT 211 K/uL (130-400); RED BLOOD COUNT 3.31 M/uL (4.2-5.4); WHITE BLOOD COUNT 7.38 K/uL (4.8-10.8)
[2016-12-31 06:35] LABS: BUN/CREATININE RATIO 11.4 (10-20); CALCIUM 8.2 mg/dl (8.5-10.1); CREATININE 0.86 mg/dl (0.60-1.20); POTASSIUM 3.4 mmol/L (3.5-5.1)
[2016-12-31 07:09] LABS: COMPLETE YES; POLYCHROMASIA 1+
[2016-12-31 07:21] VITALS: BP 141/52; PULSE 61; TEMP 36.8; O2SAT 95
[2016-12-31] MEDS ORDERED: POTASSIUM CITRATE 10 MEQ TAB PO ONE (07:30)
[2016-12-31] MEDS: PYRIDOSTIGMINE BROMIDE 60 MG TAB PO SCH ×2 (07:48→11:29)
--- NOTE | 2016-12-31 08:57 | Discharge Summary ---
Discharge Summary Date of Service Dec 31, 2016. (Leeann Moya MD) Discharge Summary Admission Date: Dec 30, 2016 at 01:57 Discharge Date: Dec 31, 2016 Discharge Disposition: Home Principal Diagnosis: ileus Immunizations: Have You Had Influenza Vaccine: No Influenza Vaccine Date: Jul 13, 2008 History of Tetanus Vaccine?: No History of Pneumococcal: No History of Hepatitis B Vaccine: No (Leeann Moya MD) Medication Reconciliation Continued Medications: Ascorbic Acid (Vitamin C) 1,000 Mg Tab 1000 MG PO QAM Aspirin (Aspirin) 325 Mg Tab 1 TAB PO QAM Atenolol (Tenormin) 25 Mg Tab 12.5 MG PO BID, 0 Refills Azathioprine (Imuran) 50 Mg Tab 50 MG PO HS, TAB 25MG DOSE IN AM 50MG DOSE IN HS Azathioprine (Imuran) 50 Mg Tab 25 MG PO QAM, TAB Cholecalciferol (Vitamin D3) 2,000 Unit Cap 1 CAP PO QAM for 90 Days, #90 CAP 3 Refills Coenzyme Q10 (Ubidecarenone) (Coq10) 50 Mg Cap 1 CAP PO DAILY Cyanocobalamin (Cyanocobalamin) 1,000 Mcg/Ml Inj 1000 MCG INJ Mo Levothyroxine Sodium (Levothyroxine Sodium) 175 Mcg Tab 1 TAB PO QAM for 90 Days, #90 TAB 3 Refills Multiple Vitamin (Multivitamin) 1 Tab Tab 1 TAB PO DAILY, TAB Omeprazole (Prilosec) 40 Mg Cap 40 MG PO QAM, CAP Prednisone (Prednisone) 10 Mg Tab 10 MG PO QAM, TAB Probiotic Product (Probiotic) 1 Cap Cap 1 CAP PO QAM Propafenone Hcl (Rythmol Sr) 425 Mg Cap 425 MG PO BID Pyridostigmine [place] (Mestinon) 60 Mg Tab 60 MG PO QID, 0 Refills Pyridostigmine [place] ([place] Timespan) 180 Mg Tabcr 180 MG PO HS Ranitidine (Zantac) 300 Mg Tab 300 MG PO HS, TAB Sertraline (Zoloft) 100 Mg Tab 100 MG PO QAM, TAB [Neuropathy Med] () Discharge Exam Patient tolerated dinner and breakfast very well and has not had any nausea she is feeling very well this morning discussed d/c and agreeable questions and concerns were addressed Review of Systems: Constitutional: No fever Eyes: No worsening of vision ENT: No hearing loss Respiratory: No cough, No dyspnea at rest, No dyspnea on exertion, No shortness of breath, No sputum, No wheezing Cardiovascular: No chest pain Abdomen: No constipation, No diarrhea, No nausea, No pain, No vomiting Musculoskeletal: No joint pain, No muscle pain Genitourinary - Female: No dysuria, No hematuria Neurologic: No balance problems, No numbness/tingling, No weakness Endocrine: No fatigue Integumentary: No rash Physical Exam: General Appearance: no apparent distress Eyes: normal inspection ENT: normal ENT inspection Neck: supple Respiratory/Chest: normal breath sounds, no respiratory distress, no accessory muscle use Cardiovascular: regular rate, rhythm, no murmur Abdomen / GI: normal bowel sounds, non tender, soft Extremities: no calf tenderness, no pedal edema Neurologic/Psychiatric: alert, normal mood/affect, oriented x 3 Skin: normal color, warm/dry, no rash Lymphatic: no adenopathy (Leeann Moya MD) Hospital Course 66 yo F with multiple previous abdominal surgeries and jail prednisone use presents with severe abdominal pain, nausea, and vomiting secondary to ileus vs enteritis. She was seen by general surgery and no intervention was recommended. Dr Mcguire did recommend empiric treatment with antibiotics however as she was doing do well over the course and she never had an elevated WBC the antibiotics were not continued on d/c. Her diet was advanced as tolerated and once nausea resolved and regular diet was tolerated she was d/c home with close follow up with PCP. Abdominal pain secondary to small bowel ileus r/t probable adhesions - general surg consult- seen by Dr Mcguire- no intervention - cipro and flagyl empirically - d/c om discharge - discussed importance of multiple small meals instead of a few large meals to help prevent future ileus Nausea/vomiting secondary to ileus/ enteritis - Zofran was received for nausea Hypokalemia - Repleted prn - repeat BMP in outpt setting in approx a week Myasthenia gravis - Continued home neostigmine and steroid Depression - cont'd sertraline Hypothyroid - cont'd synthroid HTN - cont'd atenolol Total Time Spent: Less than 30 minutes This includes examination of the patient, discharge planning, medication reconciliation, and communication with other providers. (Leeann Moya MD) Resident Physician Supervision Note: I interviewed and examined the patient. Discussed with [Griffin] and agree with findings and plan as documented in the note. Any exceptions or clarifications are listed here: [None] Documented By: Aleks Garcia feeling better eating well abdominal pain gone ready to go home vitals noted, nad abd soft ndnt no masses no guarding no rebound (+) BS SBO _ improved - stable for home, otherwise as per dr moya Total Time Spent: Less than 30 minutes (Aleks Garcia, D.O.) Discharge Instructions Please refer to the electronic Patient Visit Report (Discharge Instructions) for additional information. (Leeann Moya MD) Additional Copies To Deng Lezama D.O.
--- NOTE | 2016-12-31 09:01 | Discharge Instructions ---
Discharge Instructions Date of Service Dec 31, 2016. Admission Reason for Admission: Abdominal Pain, Intractable Nausea And Vomting Discharge Discharge Diagnosis / Problem: Ileus Discharge Goals Goal(s): Diagnostic testing, Therapeutic intervention Activity Recommendations Activity Limitations: resume your previous activity . Instructions / Follow-Up Instructions / Follow-Up As discussed, you were admitted for nausea and vomiting secondary to something called ileus. This is when part of the bowel has a hard time digesting food and can cause severe abdominal pain and nausea. We let your bowel rest and resumed your diet as tolerated. You did receive cipro and flagyl as antibiotics empirically while in the hospital however no need to continue as your are doing so well. We recommend trying to eat frequent small meals to help prevent ileus in the future and foods that have a tendency to constipate like cheese. You can still have cheese but in moderation. Please follow up with your PCP within the next week We wish you well Bonnie Moya Current Hospital Diet Patient's current hospital diet: Regular Diet Discharge Diet Recommended Diet: Regular Diet Pending Studies Studies pending at discharge: no Laboratory Results Hemoglobin A1c Test 12/29/16 22:44 Range/Units Estimated Average Glucose 126 mg/dl Hemoglobin A1c 6.0 H 4.5-5.6 % Medical Emergencies . Who to Call and When: Medical Emergencies: If at any time you feel your situation is an emergency, please call 911 immediately. . Non-Emergent Contact Non-Emergency issues call your: Primary Care Provider . . "Provider Documentation" section prepared by Leeann Moya. VTE Core Measure Inpt VTE Proph given/why not?: Treatment not indicated
[2016-12-31] MEDS: ASPIRIN 325 MG ECTAB PO SCH (09:36)
[2016-12-31] MEDS: PROPAFENONE HCL 425 MG PO SCH (09:37)
[2016-12-31] MEDS: AZATHIOPRINE 50 MG TAB PO SCH (09:37)
[2016-12-31] MEDS: SERTRALINE HCL 100 MG TAB PO SCH (09:38)
[2016-12-31] MEDS: PANTOprazole INJ 40 MG in SYRINGE 0 ML IV SCH (09:38)
[2016-12-31 09:40] VITALS: BP 118/64; PULSE 61
--- NOTE | 2016-12-31 09:51 | Clinical Documentation Query ---
RICHARD Bustillo : CLINICAL DOCUMENTATION QUERY Patient is a 66 year old female presenting with abdominal pain, nausea, and vomiting in the setting prior cholecystectomy, hysterectomy, and appendectomy. She was treated with IVF, bowel rest, analgesia, antiemetics, surgical consultation, resumption of diet. She is to be discharged to home to resume smaller, frequent meals with avoidance/limitation of constipating food. In your clinical opinion is this patient being managed for: ( ) Ileus possibly secondary to adhesions and/or enteritis ( ) Other explanation of clinical findings (Please Explain) ( ) Unable to determine (Please Define) ( ) Need to Discuss ( ) Not Agree The medical record reflects the following clinical findings, treatment, and risk factors. Clinical Indicators: As above Treatment: IVF, bowel rest, analgesia, antiemetics, surgical consultation, resumption of diet Risk Factors: Age, possible enteritis, likely adhesions/multiple intraabdominal surgeries. Please clarify and document your clinical opinion in the progress notes and discharge summary. Terms such as "probable", "suspected", "likely", "questionable", "possible", or "still to be ruled out" are acceptable. IF IN AGREEMENT, YOU MUST DOCUMENT ABOVE DIAGNOSTIC STATEMENT IN DAILY PROGRESS NOTES AND DISCHARGE SUMMARY. This document is not part of the patient's record. Thank You, Ronald Tapia RN [phone]
[2016-12-31 11:33] VITALS: BP 118/64; PULSE 61; TEMP 36.8; O2SAT 95
[2017-01-27] MEDS ORDERED: FOLI1TAB7 PO (08:39)
== END 2016-12-31 13:50 | disposition home or self-care (01) | DRG 390 ==
LOC: ENRESERVTM → ENRESERVDT → C.EDB 22:28 → C.MSW 12-30 01:57
PROVIDERS: ADMIT Hospitalist; ATTEND Hospitalist
DX: K56.5 Intestinal adhesions [bands] with obstruction (postinfection) (principal); E87.6 Hypokalemia; G70.00 Myasthenia gravis without (acute) exacerbation; I10 Essential (primary) hypertension; I49.9 Cardiac arrhythmia, unspecified; E03.9 Hypothyroidism, unspecified; K21.9 Gastro-esophageal reflux disease without esophagitis; F32.9 Major depressive disorder, single episode, unspecified; Z79.52 Long term (current) use of systemic steroids; Z79.899 Other long term (current) drug therapy

== ENCOUNTER → 2017-02-04 | Day surgery (SDC) | payer OTHER ==
[2017-01-27 08:41] VITALS: Ht 165.1 cm; Wt 90.9 kg
[~2017-02-04] VITALS: Ht 165.1 cm; Wt 90.9 kg
[~2017-02-04] MED LIST changes: +ASCO10003 PO; +ATROPINE SULFATE 0.1 MG/ML 5ML SYR IV PRN; -COEN50CA22 PO; -CYAN10002 SC; +CYNI1000 INJ; +EpHEDrine SULFATE INJ 50 MG/ML AMP IV PRN; +FOLI1TAB7 PO; +LIDOCAINE HCL 2% 2 ML VIAL (20MG/ML) ONE; -OMEP40CA PO; +OMEP40CA41 PO; +PRED10TA PO; -PRED20TA2 PO; +PROPOFOL IV EMULSION 10 MG/ML 20 ML VIAL IV ONE; +SODIUM CHLORIDE 0.9% 500ML 500 ML IV ONE
[2017-02-04 14:00] VITALS: TEMP 37
--- NOTE | 2017-02-04 14:04 | Endo History and Physical ---
History & Physical Date of Service: Feb 04, 2017. Chief Complaint: abd pain rectal bleeding Referring Physician: Dr Lezama History of Present Illness BRBPR; diarrhea; lower abd pain Past Medical History Atrial Fibrillation, Arthritis, Pulmonary Emboli, Reflux, Blood Dyscrasias, High Cholesterol, Thyroid Disease, Other Past Surgical History Hx Cardiac Surgery: Yes (CARDIAC CATH) Hx Internal Defibrillator: No Hx Pacemaker: No Hx Abdominal Surgery: Yes (BILL, OVARIAN CYST EXCISION, MADDISON) Hx of Implantable Prosthesis: No Hx Post-Op Nausea and Vomiting: Yes Hx Cancer Surgery: Yes (BCC RT/LEFT YAZIDI REMOVAL) Hx Thoracic Surgery: No Hx Orthopedic: Yes (RT BRENTNO) Hx Urinary Tract Surgery: No Family History Polyp Social History Smoking Status: Never Smoker Hx Substance Use: No Hx Alcohol Use: No Allergies Coded Allergies: Propoxyphene (Verified Allergy, Mild, MUSCLE PAIN, 01/27/17) Statins (Verified Allergy, Unknown, WEAKNESS, 01/27/17) Current Medications Reported Home Medications Medications Dose Route/Sig Max Daily Dose Days Date Category Dose Instructions Folvite (Folic Acid) 1 Mg Tab 1 Mg PO QAM 01/27/17 Reported Vitamin C (Ascorbic Acid) 1,000 Mg Tab 1,000 Mg PO QAM 12/29/16 Reported Prednisone 10 Mg Tab 10 Mg PO QAM 12/29/16 Reported Prilosec (Omeprazole) 40 Mg Cap 40 Mg PO QAM 12/29/16 Reported Cyanocobalamin 1,000 Mcg/Ml Inj 1,000 Mcg INJ MO 12/29/16 Reported Multivitamin (Multiple Vitamin) 1 Tab Tab 1 Tab PO QAM 08/25/16 Reported Imuran (Azathioprine) 50 Mg Tab 25 Mg PO QAM 08/25/16 Reported Aspirin 325 Mg Tab 1 Tab PO QAM 06/12/16 Reported Vitamin D3 (Cholecalciferol) 2,000 Unit Cap 1 Cap PO QAM 90 06/12/16 Reported Imuran (Azathioprine) 50 Mg Tab 50 Mg PO HS 06/12/16 Reported 25MG DOSE IN AM 50MG DOSE IN HS Zoloft (Sertraline HCl) 100 Mg Tab 100 Mg PO QAM 06/12/16 Reported Levothyroxine Sodium 175 Mcg Tab 1 Tab PO QAM 90 06/12/16 Reported Zantac (Ranitidine HCl) 300 Mg Tab 300 Mg PO HS 06/12/16 Reported Rythmol Sr (Propafenone Hcl) 425 Mg Cap 425 Mg PO BID 01/22/14 Reported Mestinon Timespan (Pyridostigmine [place]) 180 Mg Tabcr 180 Mg PO HS 07/24/13 Reported Tenormin (Atenolol) 25 Mg Tab 12.5 Mg PO BID 11/26/08 Reported Mestinon (Pyridostigmine [place]) 60 Mg Tab 60 Mg PO QID 11/26/08 Reported Vital Signs Weight (Kilograms): 90.91 Height (Feet): 5 Height (Inches): 5 Physical Exam AAOx3 Nls1s2 Lungs CTA Abd Soft NT/ND + BS - CCE Assessment and Plan colonoscopy with possible bx
--- NOTE | 2017-02-04 15:00 | Discharge Instructions ---
Endoscopy Patient Instructions Date / Procedure(s) Performed Feb 04, 2017. Colonoscopy Allergy Information Coded Allergies: Propoxyphene (Verified Allergy, Mild, MUSCLE PAIN, 01/27/17) Statins (Verified Allergy, Unknown, WEAKNESS, 01/27/17) Discharge Date / Findings Feb 04, 2017. 1) diverticulosis; polyps Medication Instructions Restart Stopped Medication(s): Reported Home Medications Medications Dose Route/Sig Max Daily Dose Days Date Category Dose Instructions Folvite (Folic Acid) 1 Mg Tab 1 Mg PO QAM 01/27/17 Reported Vitamin C (Ascorbic Acid) 1,000 Mg Tab 1,000 Mg PO QAM 12/29/16 Reported Prednisone 10 Mg Tab 10 Mg PO QAM 12/29/16 Reported Prilosec (Omeprazole) 40 Mg Cap 40 Mg PO QAM 12/29/16 Reported Cyanocobalamin 1,000 Mcg/Ml Inj 1,000 Mcg INJ MO 12/29/16 Reported Multivitamin (Multiple Vitamin) 1 Tab Tab 1 Tab PO QAM 08/25/16 Reported Imuran (Azathioprine) 50 Mg Tab 25 Mg PO QAM 08/25/16 Reported Aspirin 325 Mg Tab 1 Tab PO QAM 06/12/16 Reported Vitamin D3 (Cholecalciferol) 2,000 Unit Cap 1 Cap PO QAM 90 06/12/16 Reported Imuran (Azathioprine) 50 Mg Tab 50 Mg PO HS 06/12/16 Reported 25MG DOSE IN AM 50MG DOSE IN HS Zoloft (Sertraline HCl) 100 Mg Tab 100 Mg PO QAM 06/12/16 Reported Levothyroxine Sodium 175 Mcg Tab 1 Tab PO QAM 90 06/12/16 Reported Zantac (Ranitidine HCl) 300 Mg Tab 300 Mg PO HS 06/12/16 Reported Rythmol Sr (Propafenone Hcl) 425 Mg Cap 425 Mg PO BID 01/22/14 Reported Mestinon Timespan (Pyridostigmine Crockett) 180 Mg Tabcr 180 Mg PO HS 07/24/13 Reported Tenormin (Atenolol) 25 Mg Tab 12.5 Mg PO BID 11/26/08 Reported Mestinon (Pyridostigmine Crockett) 60 Mg Tab 60 Mg PO QID 11/26/08 Reported Reported Home Medications Medications Dose Route/Sig Max Daily Dose Days Date Category Dose Instructions Folvite (Folic Acid) 1 Mg Tab 1 Mg PO QAM 01/27/17 Reported Vitamin C (Ascorbic Acid) 1,000 Mg Tab 1,000 Mg PO QAM 12/29/16 Reported Prednisone 10 Mg Tab 10 Mg PO QAM 12/29/16 Reported Prilosec (Omeprazole) 40 Mg Cap 40 Mg PO QAM 12/29/16 Reported Cyanocobalamin 1,000 Mcg/Ml Inj 1,000 Mcg INJ MO 12/29/16 Reported Multivitamin (Multiple Vitamin) 1 Tab Tab 1 Tab PO QAM 08/25/16 Reported Imuran (Azathioprine) 50 Mg Tab 25 Mg PO QAM 08/25/16 Reported Aspirin 325 Mg Tab 1 Tab PO QAM 06/12/16 Reported Vitamin D3 (Cholecalciferol) 2,000 Unit Cap 1 Cap PO QAM 90 06/12/16 Reported Imuran (Azathioprine) 50 Mg Tab 50 Mg PO HS 06/12/16 Reported 25MG DOSE IN AM 50MG DOSE IN HS Zoloft (Sertraline HCl) 100 Mg Tab 100 Mg PO QAM 06/12/16 Reported Levothyroxine Sodium 175 Mcg Tab 1 Tab PO QAM 90 06/12/16 Reported Zantac (Ranitidine HCl) 300 Mg Tab 300 Mg PO HS 06/12/16 Reported Rythmol Sr (Propafenone Hcl) 425 Mg Cap 425 Mg PO BID 01/22/14 Reported Mestinon Timespan (Pyridostigmine Crockett) 180 Mg Tabcr 180 Mg PO HS 07/24/13 Reported Tenormin (Atenolol) 25 Mg Tab 12.5 Mg PO BID 11/26/08 Reported Mestinon (Pyridostigmine Crockett) 60 Mg Tab 60 Mg PO QID 11/26/08 Reported Provider Instructions Activity Restrictions - No exercising or heavy lifting for 24 hours. - Do not drink alcohol the day of the procedure. - Do not drive a car or operate machinery until the day after the procedure. - Do not make any important decisions or sign important papers in 24 hours after the procedure. Following Day: - Return to full activity which may include returning to work/school. Diet Start your diet with liquids and light foods (jello, soup, juice, toast). Then eat your usual diet if not nauseated. Treatment For Common After Affects For mild abdominal pain, bloating, or excessive gas: - Rest - Eat lightly - Lie on right side Follow-Up Information Follow-up with Dr Lezama as scheduled Anesthesia Information What You Should Know You have had a procedure that required some medicine to reduce anxiety and discomfort. This treatment is called moderate sedation. After receiving the treatment, you may be sleepy, but you will be able to breathe on your own. The effects of the treatment may last for several hours. Follow these instructions along with Activity/Diet recommendations noted above: * Do NOT do anything where dizziness or clumsiness would be dangerous. * Rest quietly at home today, then you can be up and about tomorrow. * Have a responsible person stay with you the rest of today. * You may have had an I.V. today. If so, you may take the dressing off later today. Recommendations Call your doctor if: * Trouble breathing * Continuous vomiting for more than 24 hours * Temperature above 101 degrees * Severe abdominal pain or bloating * Pain not relieved by pain medicine ordered * There is increased drainage or redness from any incision * A large amount of rectal bleeding greater than 2-3 tablespoons. (If you had a polyp/s removed or have hemorrhoids, a small amount of blood - from the rectum is to be expected.) * You have any unanswered questions or concerns. IN THE EVENT OF A SERIOUS EMERGENCY, GO TO THE NEAREST EMERGENCY ROOM Your discharge instructions were prepared by provider John Jones. Patient Instructions Signature Page Cassidy Cisneros Patient (or Guardian) Signature/Date: I have read and understand the instructions given to me by my caregivers. Caregiver/RN/Doctor Signature/Date: The above-named patient and/or guardian has received patient instructions on this date. + Original Patient Signature Page (only) stays with chart. Please make copy for patient.
--- NOTE | 2017-02-04 15:08 | GI REPORT ---
Procedure Date: 02/04/2017 2:18 PM Procedure: Colonoscopy Indications: Generalized abdominal pain, Chronic diarrhea, Hematochezia Medicines: Propofol per Anesthesia Complications: No immediate complications. Estimated blood loss: Minimal. Estimated Blood Loss: Estimated blood loss was minimal. Procedure: Pre-Anesthesia Assessment: - Prior to the procedure, a History and Physical was performed, and patient medications and allergies were reviewed. The patient's tolerance of previous anesthesia was also reviewed. The risks and benefits of the procedure and the sedation options and risks were discussed with the patient. All questions were answered, and informed consent was obtained. Prior Anticoagulants: The patient has taken no previous anticoagulant or antiplatelet agents. ASA Grade Assessment: III - A patient with severe systemic disease. After reviewing the risks and benefits, the patient was deemed in satisfactory condition to undergo the procedure. After I obtained informed consent, the scope was passed under direct vision. Throughout the procedure, the patient's blood pressure, pulse, and oxygen saturations were monitored continuously. The scope was introduced through the anus and advanced to the cecum, identified by appendiceal orifice and ileocecal valve. The colonoscopy was performed without difficulty. The patient tolerated the procedure well. The quality of the bowel preparation was good. Findings: The perianal and digital rectal examinations were normal. Pertinent negatives include normal sphincter tone, no palpable rectal lesions and no anal lesion or abnormality was detected. A 7 mm polyp was found in the ascending colon. The polyp was sessile. The polyp was removed with a cold snare. Resection and retrieval were complete. Estimated blood loss was minimal. Verification of patient identification for the specimen was done by the physician and dermatology technician using the patient's name and medical record number. A 4 mm polyp was found at 70 cm proximal to the anus. The polyp was sessile. The polyp was removed with a cold biopsy forceps. Resection and retrieval were complete. Estimated blood loss was minimal. Verification of patient identification for the specimen was done by the physician and dermatology technician using the patient's name and medical record number. A few small-mouthed diverticula were found in the sigmoid colon. The exam was otherwise without abnormality. The rectum, descending colon and ascending colon appeared normal. Biopsies were taken with a cold forceps for histology. Estimated blood loss was minimal. Verification of patient identification for the specimen was done by the physician and dermatology technician using the patient's name and medical record number. The retroflexed view of the distal rectum and anal verge was normal and showed no anal or rectal abnormalities. Impression: - One 7 mm polyp in the ascending colon, removed with a cold snare. Resected and retrieved. - One 4 mm polyp at 70 cm proximal to the anus, removed with a cold biopsy forceps. Resected and retrieved. - Diverticulosis in the sigmoid colon. - The examination was otherwise normal. - The rectum, descending colon and ascending colon are normal. Biopsied. - The distal rectum and anal verge are normal on retroflexion view. Recommendation: - Discharge patient to home (ambulatory). - Patient has a contact number available for emergencies. The signs and symptoms of potential delayed complications were discussed with the patient. Return to normal activities tomorrow. Written discharge instructions were provided to the patient. - Resume regular diet. - Await pathology results. - Return to referring physician as previously scheduled. MD John Gay MD 02/04/2017 3:07:33 PM This report has been signed electronically. Note Initiated On: 02/04/2017 2:18 PM I attest to the content of the Intraoperative Record and orders documented therein, exceptions below
[2017-02-04 15:39] VITALS: BP 150/60; PULSE 56; O2SAT 98
--- NOTE | 2017-02-04 15:45 | Anesthesiology Progress Note ---
Anesthesia Post Op Note Date & Time Feb 04, 2017 at 15:44 Vital Signs Pain Intensity: 0 Vital Signs Past 12 Hours Date Time Temp Pulse Resp B/P Pulse Ox O2 Delivery O2 Flow Rate FiO2 02/04/17 15:39 56 20 150/60 98 Room Air 02/04/17 15:19 54 20 125/45 96 Room Air 02/04/17 15:05 57 20 122/44 94 Room Air 02/04/17 14:00 37 59 18 145/70 96 Room Air Notes Mental Status: alert / awake / arousable, participated in evaluation Pt Amnestic to Procedure: Yes Nausea / Vomiting: adequately controlled Pain: adequately controlled Airway Patency, RR, SpO2: stable & adequate BP & HR: stable & adequate Hydration State: stable & adequate Anesthetic Complications: no major complications apparent
== END | disposition home or self-care (01) ==
LOC: C.GI 13:30
PROVIDERS: ATTEND Internal Medicine Gastroenterology
DX: R10.84 Generalized abdominal pain (principal); K52.9 Noninfective gastroenteritis and colitis, unspecified; K92.1 Melena; D12.2 Benign neoplasm of ascending colon; K62.0 Anal polyp; K57.30 Diverticulosis of large intestine without perforation or abscess without bleeding; F32.9 Major depressive disorder, single episode, unspecified; I48.91 Unspecified atrial fibrillation; E03.9 Hypothyroidism, unspecified; Z68.33 Body mass index [BMI] 33.0-33.9, adult; E66.9 Obesity, unspecified; Z96.641 Presence of right artificial hip joint; Z85.9 Personal history of malignant neoplasm, unspecified; Z86.711 Personal history of pulmonary embolism; Z98.890 Other specified postprocedural states; Z90.49 Acquired absence of other specified parts of digestive tract; Z83.71 Family history of colonic polyps

== ENCOUNTER → 2017-04-21 | Outpatient (CLI) | payer OTHER ==
[~2017-04-21] MED LIST changes: -ATROPINE SULFATE 0.1 MG/ML 5ML SYR IV PRN; -EpHEDrine SULFATE INJ 50 MG/ML AMP IV PRN; -LIDOCAINE HCL 2% 2 ML VIAL (20MG/ML) ONE; -PROPOFOL IV EMULSION 10 MG/ML 20 ML VIAL IV ONE; -SODIUM CHLORIDE 0.9% 500ML 500 ML IV ONE
== END | disposition home or self-care (01) ==
LOC: C.LAB1850 10:02
PROVIDERS: ATTEND Internal Medicine Endocrinology, Diabetes & Metabolism
DX: E03.8 Other specified hypothyroidism (principal)

== ENCOUNTER → 2017-06-30 | Outpatient (CLI) | payer OTHER | END | disposition home or self-care (01) | LOC: C.LAB1850 10:46 | PROVIDERS: ATTEND Internal Medicine Endocrinology, Diabetes & Metabolism | DX: E03.8 Other specified hypothyroidism (principal) ==

== ENCOUNTER → 2017-10-13 | Outpatient (CLI) | payer MEDICARE, OTHER ==
[~2017-10-13] MED LIST changes: +ASPECOTC PO; -ASPI325T45 PO; +AZAT50TA33 PO; -AZAT50TA5 PO; +COLE1TAB PO; -FOLI1TAB7 PO; +FOLI1TAB8 PO; +FOLI800T PO; +GABA-112 PO; +GABA-113 PO; +ONDA4TAB10 SL; +POTA-74 PO; +POTA99TA PO; +PRD20 PO
[2017-10-13 16:41] LABS: BASO % 0.4 %; BASO ABS # 0.04 K/uL (0-0.2); EOS % 0.7 %; EOS ABS # 0.07 K/uL (0-0.5); HEMATOCRIT 37.9 % (37-47); HEMOGLOBIN 12.3 g/dL (12.0-16.0); IG# 0.07 K/uL (0.00-0.02); LYMPH ABS # 0.51 K/uL (1.2-3.4); MEAN CELL VOLUME 87.1 fL (80-100); MEAN CORPUSCULAR HEMOGLOBIN 28.3 pg (25-34); MEAN CORPUSCULAR HGB CONC 32.5 g/dl (32-36); MEAN PLATELET VOLUME 10.8 fL (7.4-10.4); MONO % 6.4 %; MONO ABS # 0.66 K/uL (0.11-0.59); NEUT % 86.8 %; NEUT ABS # 8.95 K/uL (1.4-6.5); PLATELET COUNT 251 K/uL (130-400); RED CELL DISTRIBUTION WIDTH CV 14.4 % (11.5-14.5); RED CELL DISTRIBUTION WIDTH SD 45.6 fL (36.4-46.3)
[2017-10-13 17:14] LABS: ALBUMIN 3.7 gm/dl (3.4-5.0); ALT/SGPT 30 U/L (12-78); AST/SGOT 17 U/L (15-37); BLOOD UREA NITROGEN 11 mg/dl (7-18); CARBON DIOXIDE 27 mmol/L (21-32); CREATININE 0.84 mg/dl (0.60-1.20); GLUCOSE 98 mg/dl (70-99); POTASSIUM 4.2 mmol/L (3.5-5.1); SODIUM 140 mmol/L (136-145)
[2017-10-13 17:19] LABS: ALKALINE PHOSPHATASE 61 U/L (45-117); TOTAL PROTEIN 7.1 gm/dl (6.4-8.2)
== END | disposition home or self-care (01) ==
LOC: C.LAB 15:22
PROVIDERS: ATTEND Internal Medicine Hematology & Oncology
DX: D50.9 Iron deficiency anemia, unspecified (principal)

== ENCOUNTER → 2017-11-08 | Outpatient (CLI) | payer MEDICARE ==
[~2017-11-08] MED LIST changes: -ASPECOTC PO; +ASPI325T45 PO; -COLE1TAB PO; -FOLI800T PO; -GABA-112 PO; -GABA-113 PO; -ONDA4TAB10 SL; -POTA-74 PO; -POTA99TA PO; -PRD20 PO
== END | disposition home or self-care (01) ==
LOC: C.RDSM 19:12
PROVIDERS: ATTEND Physical Medicine & Rehabilitation Sports Medicine
DX: Z96.641 Presence of right artificial hip joint (principal)

== ENCOUNTER → 2017-11-11 | Outpatient (CLI) | payer MEDICARE, OTHER ==
--- NOTE | 2017-11-15 07:40 | MAMMOGRAPHY REPORT ---
BILATERAL DIGITAL SCREENING MAMMOGRAM TOMOSYNTHESIS WITH CAD: 11/11/2017 CLINICAL HISTORY: Routine screening. Patient has no complaints. TECHNIQUE: Breast tomosynthesis in addition to standard 2D mammography was performed. Current study was also evaluated with a Computer Aided Detection (CAD) system. COMPARISON: Comparison is made to exams dated: 10/16/2016 mammogram, 09/23/2015 mammogram, 09/04/2014 mammogram, 08/21/2013 mammogram, 08/19/2012 mammogram, and 08/18/2011 mammogram - [facility]. BREAST COMPOSITION: There are scattered areas of fibroglandular density in both breasts. FINDINGS: No suspicious masses, calcifications, or areas of architectural distortion are noted in ei ther breast. There has been no significant interval change compared to prior exams. Scattered bilater al benign-appearing calcifications are not significantly changed. IMPRESSION: ACR BI-RADS CATEGORY 2: BENIGN There is no mammographic evidence of malignancy. A 1 year screening mammogram is recommended. The pa tient will receive written notification of the results. Approximately 10% of breast cancers are not detected with mammography. A negative mammographic report should not delay biopsy if a clinically suggestive mass is present. Nancy Rodriguez M.D. ah/:11/11/2017 14:45:50 Bounty Hunter: Ghislaine ESTRADA)(M), [facility] letter sent: Normal 1/2 BI-RADS Code: ACR BI-RADS Category 2: Benign
== END | disposition home or self-care (01) ==
LOC: C.MAMM 13:35
PROVIDERS: ATTEND Psychiatry & Neurology Neurology
DX: Z12.31 Encounter for screening mammogram for malignant neoplasm of breast (principal); E55.9 Vitamin D deficiency, unspecified; E53.9 Vitamin B deficiency, unspecified; Z79.52 Long term (current) use of systemic steroids

== ENCOUNTER → 2018-01-25 | Outpatient (CLI) | payer MEDICARE ==
[~2018-01-25] MED LIST changes: +ASPECOTC PO; -ASPI325T45 PO
== END | disposition home or self-care (01) ==
LOC: C.LAB1850 11:37
PROVIDERS: ATTEND Internal Medicine Endocrinology, Diabetes & Metabolism
DX: E03.8 Other specified hypothyroidism (principal)

== ENCOUNTER 2018-02-21 12:01 | Emergency (ER) | payer MEDICARE ==
[~2018-02-21] VITALS: Ht 162.6 cm; Wt 90.0 kg
[2018-02-21 12:19] VITALS: TEMP 36.5; Ht 162.6 cm; Wt 90.0 kg
[2018-02-21] MEDS ORDERED: GABA-112 PO (12:47)
[2018-02-21] MEDS ORDERED: FOLI800T PO (12:47)
[2018-02-21] MEDS ORDERED: GABA-113 PO (12:47)
[2018-02-21] MEDS ORDERED: COLE1TAB PO (12:47)
[2018-02-21] MEDS ORDERED: PRD20 PO (12:47)
[2018-02-21] MEDS ORDERED: POTA99TA PO (12:47)
[2018-02-21 13:16] LABS: BASO % 0.2 %; BASO ABS # 0.02 K/uL (0-0.2); EOS % 1.5 %; EOS ABS # 0.14 K/uL (0-0.5); HEMATOCRIT 36.5 % (37-47); HEMOGLOBIN 12.3 g/dL (12.0-16.0); IG# 0.06 K/uL (0.00-0.02); LYMPH % 4.8 %; LYMPH ABS # 0.45 K/uL (1.2-3.4); MEAN CELL VOLUME 84.1 fL (80-100); MEAN CORPUSCULAR HEMOGLOBIN 28.3 pg (25-34); MEAN CORPUSCULAR HGB CONC 33.7 g/dl (32-36); MEAN PLATELET VOLUME 10.3 fL (7.4-10.4); MONO ABS # 0.84 K/uL (0.11-0.59); NEUT % 83.9 %; NEUT ABS # 7.78 K/uL (1.4-6.5); PLATELET COUNT 217 K/uL (130-400); RED CELL DISTRIBUTION WIDTH SD 46.5 fL (36.4-46.3); WHITE BLOOD COUNT 9.29 K/uL (4.8-10.8)
[2018-02-21] MEDS ORDERED: MoRPHine SULFATE 4 MG/ML 1 ML CARP\\VIAL IV STA (13:28)
[2018-02-21] MEDS ORDERED: SODIUM CHLORIDE 0.9% 1000ML 1,000 ML IV STA (13:28)
[2018-02-21] MEDS ORDERED: ONDANSETRON INJ 2 MG/ML 2 ML VIAL IV STA (13:28)
[2018-02-21 13:35] LABS: ALBUMIN 4.5 gm/dl (3.4-5.0); CALCIUM 8.8 mg/dl (8.5-10.1); CREATININE 0.89 mg/dl (0.60-1.20); POTASSIUM 3.1 mmol/L (3.5-5.1)
[2018-02-21 13:37] LABS: TOTAL PROTEIN 7.4 gm/dl (6.4-8.2)
--- NOTE | 2018-02-21 14:19 | DIAGNOSTIC IMAGING REPORT ---
PA CHEST RADIOGRAPH AND UPRIGHT AND SUPINE AP RADIOGRAPHS OF THE ABDOMEN CLINICAL HISTORY: N/V/D X 18 HOURS COMPARISON STUDY: Chest radiograph December 29, [address] of the abdomen and pelvis December 30, 2016. FINDINGS: Hazy left basilar opacity is likely artifactual. There are median sternotomy wires and mediastinal surgical clips. The heart is enlarged. There is no evidence for pulmonary edema. No free air is present. Cholecystectomy clips are noted. There is a single loop of mildly dilated small bowel which measures 3 cm in caliber. Right hip arthroplasty is incidentally noted. IMPRESSION: 1. No free air. 2. Single loop of mildly dilated small bowel. A partial small bowel obstruction would be difficult to exclude but is considered unlikely. 3. No acute cardiopulmonary findings. Electronically signed by: See Joy M.D. 02/21/2018 2:17 PM Dictated Date/Time: 02/21/2018 2:13 PM
[2018-02-21] MEDS: POTASSIUM CHLR 10 MEQ / WTR 100 ML IV STA ×2 (15:13→16:01)
[2018-02-21] MEDS ORDERED: PYRIDOSTIGMINE BROMIDE 60 MG TAB PO ONE (15:15)
[2018-02-21] MEDS ORDERED: POTASSIUM CHLORIDE 10 MEQ TABCR PO STA (16:45)
[2018-02-21] MEDS ORDERED: ONDA4TAB10 SL (16:48)
[2018-02-21] MEDS ORDERED: POTA-74 PO (16:48)
[2018-02-21 16:50] VITALS: BP 134/72; PULSE 72; O2SAT 95
--- NOTE | 2018-02-21 16:50 | EMERGENCY ROOM VISIT NOTE ---
History First contact with patient: 13:08 Chief Complaint: NAUSEA Stated Complaint: NAUSEA, DIAHREA, STOM PAIN, BACK PAIN Nursing Triage Summary: pt reports nausea and vomitting since last night states she has been unable to take her medications she reports HX of Myasthenia Gravis and Cholecystectomy reports appropriate bowel and bladder movement History of Present Illness Patient is a 67-year-old female who presents emergency department accompanied by her daughter for evaluation of nausea, vomiting and diarrhea that started acutely last evening. Patient reports that she was feeling a little bit dizzy 2 days ago, but otherwise felt fine. She ate and drank normally throughout the weekend. She states that around 8 PM last evening, she developed nausea and subsequently multiple episodes of vomiting. She reports that it was undigested food, then clear/bilious, and has had just the dry heaves this morning. Last episode of emesis was about 4 hours ago. She states that she was sipping mykel jaimie throughout the morning. She reports the diarrhea started this morning and she had loose, watery bowel movements 2 this morning. She denies melena or hematochezia. She has developed mild upper abdominal pain in the last hour or so that she presently rates a 5/10. She went to the [facility] walk-in clinic and was not able to be seen until the afternoon, so she went to [facility]. There they gave her an oral Zofran and referred her here for IV fluids. The patient has been ill like this in the past. She reports that she picked her son up from work early yesterday and he was sick with similar symptoms. There are family members at home who have eaten the same foods as she has throughout the weekend and are not ill. She denies any unusual food or water consumption, foreign travel or recent antibiotic use. She is status post multiple abdominal surgeries including hysterectomy, cholecystectomy and appendectomy. Review of Systems Review of systems as per HPI. All other systems reviewed were negative. 10 systems reviewed. Past Medical/Surgical History Medical Problems: (1) Abdominal pain (2) Anxiety (3) Cholecystectomy (4) Deep venous thrombosis (5) diverticulosis (6) DJD (degenerative joint disease) of hip (7) Gastroesophageal reflux disease (8) Heart palpitations (9) Hemorrhoids (10) History of - peptic ulcer (11) History of - tubal ligation (12) Hysterectomy (13) Intractable nausea and vomiting (14) Myasthenia gravis Electronic medical records are reviewed and summarized as above/below. See Problem List. Family History Cancer Diabetes mellitus Gallbladder disease Heart disease Hypertension Social History Smoking Status: Never Smoker Alcohol Use: none Drug Use: none Marital Status: single Housing Status: lives alone Occupation Status: disabled Current/Historical Medications Scheduled Ascorbic Acid (Vitamin C), 1,000 MG PO QAM Aspirin (Aspirin), 325 MG PO QAM Atenolol (Tenormin), 12.5 MG PO BID Azathioprine (Imuran), 50 MG PO HS Azathioprine (Imuran), 25 MG PO QAM Cholecalciferol (Vitamin D3), 4,000 UNITS PO QAM Colestipol Hcl (Colestid), 1 GM PO DAILY Cyanocobalamin (Cyanocobalamin), 1,000 MCG INJ Mo Folic Acid (Folic Acid), 800 MCG PO DAILY Gabapentin (Neurontin), 300 MG PO HS Levothyroxine Sodium (Levothyroxine Sodium), 175 MCG PO QAM Omeprazole (Prilosec), 40 MG PO QAM Potassium (Potassium), 99 MG PO DAILY Potassium Chloride (Potassium Chloride Er), 2 TAB PO DAILY Prednisone (Prednisone), 20 MG PO DAILY Propafenone Hcl (Rythmol Sr), 425 MG PO BID Pyridostigmine [place] (Mestinon), 60 MG PO QID Pyridostigmine [place] ([place]inon Timespan), 180 MG PO HS Ranitidine (Zantac), 300 MG PO HS Sertraline (Zoloft), 100 MG PO QAM Scheduled PRN Gabapentin (Neurontin), 100 MG PO UD PRN for Pain Ondasetron Odt (Zofran Odt), 4 MG SL Q4 PRN for Nausea or Vomiting Physical Exam Vital Signs Date Time Temp Pulse Resp B/P (MAP) Pulse Ox O2 Delivery O2 Flow Rate FiO2 02/21/18 16:50 72 16 134/72 95 Room Air 02/21/18 15:57 74 16 146/51 95 Room Air 02/21/18 14:39 85 18 151/52 98 Room Air 02/21/18 13:47 83 16 152/67 98 Room Air 02/21/18 12:45 77 02/21/18 12:19 36.5 76 18 138/67 95 Room Air Physical Exam CONSTITUTIONAL: Patient is an ill although nontoxic-appearing 67-year-old white female who is awake and alert and in mild distress due to her stated complaint. EYES: Pupils equal, round, reactive to light and accommodation. EOMs intact without nystagmus. Sclera are anicteric. ENT: Tympanic membranes intact, with normal landmarks. External canals are clear. Oral and nasopharynx are clear. Mucous membranes are moist, no lesions , tongue and gums appear normal. CARDIOVASCULAR: Regular rate and rhythm, with normal S1 and S2, no murmur or gallop or rub is heard. No carotid bruits auscultated. No JVD. Peripheral pulses easy to palpable. RESPIRATORY: Breath sounds equal and clear to auscultation without wheezes, rales, or rhonchi heard. Full and equal chest expansion without accessory muscle use or retractions. GI: Bowel sounds are present. Well-healed surgical scars are noted. Abdomen is soft, nondistended, mildly tender through the lower abdomen. No organomegaly. No pulsatile masses. No guarding or rebound. MUSCULOSKELETAL: Full range of motion of extremities x 4 with good strength. No cyanosis, edema, joint tenderness or swelling. No deformity. INTEGUMENTARY: No lesions or rash, normal skin turgor. NEUROLOGICAL: Alert, oriented, and cooperative. Cranial nerves, sensation and strength grossly intact. Pupils round, equal, and react to light, EOMs are full. LYMPH: No lymphadenopathy. Medical Decision & Procedures ER Provider Diagnostic Interpretation: PA CHEST RADIOGRAPH AND UPRIGHT AND SUPINE AP RADIOGRAPHS OF THE ABDOMEN CLINICAL HISTORY: N/V/D X 18 HOURS COMPARISON STUDY: Chest radiograph December 29, [address] of the abdomen and pelvis December 30, 2016. FINDINGS: Hazy left basilar opacity is likely artifactual. There are median sternotomy wires and mediastinal surgical clips. The heart is enlarged. There is no evidence for pulmonary edema. No free air is present. Cholecystectomy clips are noted. There is a single loop of mildly dilated small bowel which measures 3 cm in caliber. Right hip arthroplasty is incidentally noted. IMPRESSION: 1. No free air. 2. Single loop of mildly dilated small bowel. A partial small bowel obstruction would be difficult to exclude but is considered unlikely. 3. No acute cardiopulmonary findings. Laboratory Results 02/21/18 12:58 Red Blood Count 4.34, Mean Corpuscular Volume 84.1, Mean Corpuscular Hemoglobin 28.3, Mean Corpuscular Hemoglobin Concent 33.7, Mean Platelet Volume 10.3, Neutrophils (%) (Auto) 83.9, Lymphocytes (%) (Auto) 4.8, Monocytes (%) (Auto) 9.0, Eosinophils (%) (Auto) 1.5, Basophils (%) (Auto) 0.2, Neutrophils # (Auto) 7.78, Lymphocytes # (Auto) 0.45, Monocytes # (Auto) 0.84, Eosinophils # (Auto) 0.14, Basophils # (Auto) 0.02 02/21/18 12:58 Test 02/21/18 12:58 White Blood Count 9.29 K/uL (4.8-10.8) Red Blood Count 4.34 M/uL (4.2-5.4) Hemoglobin 12.3 g/dL (12.0-16.0) Hematocrit 36.5 % (37-47) Mean Corpuscular Volume 84.1 fL (80-100) Mean Corpuscular Hemoglobin 28.3 pg (25-34) Mean Corpuscular Hemoglobin Concent 33.7 g/dl (32-36) Platelet Count 217 K/uL (130-400) Mean Platelet Volume 10.3 fL (7.4-10.4) Neutrophils (%) (Auto) 83.9 % Lymphocytes (%) (Auto) 4.8 % Monocytes (%) (Auto) 9.0 % Eosinophils (%) (Auto) 1.5 % Basophils (%) (Auto) 0.2 % Neutrophils # (Auto) 7.78 K/uL (1.4-6.5) Lymphocytes # (Auto) 0.45 K/uL (1.2-3.4) Monocytes # (Auto) 0.84 K/uL (0.11-0.59) Eosinophils # (Auto) 0.14 K/uL (0-0.5) Basophils # (Auto) 0.02 K/uL (0-0.2) RDW Standard Deviation 46.5 fL (36.4-46.3) RDW Coefficient of Variation 15.0 % (11.5-14.5) Immature Granulocyte % (Auto) 0.6 % Immature Granulocyte # (Auto) 0.06 K/uL (0.00-0.02) Anion Gap 12.0 mmol/L (3-11) Est Creatinine Clear Calc Drug Dose 67.6 ml/min Estimated GFR () 78.3 Estimated GFR (Non- 67.5 BUN/Creatinine Ratio 21.7 (10-20) Calcium Level 8.8 mg/dl (8.5-10.1) Total Bilirubin 0.6 mg/dl (0.2-1) Aspartate Amino Transf (AST/SGOT) 16 U/L (15-37) Alanine Aminotransferase (ALT/SGPT) 29 U/L (12-78) Alkaline Phosphatase 59 U/L (45-117) Total Protein 7.4 gm/dl (6.4-8.2) Albumin 4.5 gm/dl (3.4-5.0) Globulin 2.9 gm/dl (2.5-4.0) Albumin/Globulin Ratio 1.6 (0.9-2) Lipase 239 U/L (73-393) Medications Administered Medications (Trade) Dose Ordered Sig/Baldo Route Start Time Stop Time Status Last Admin Dose Admin Sodium Chloride 1,000 ml @ 999 mls/hr Q1H1M STAT IV 02/21/18 13:28 02/21/18 14:28 DC 02/21/18 13:44 999 MLS/HR Ondansetron HCl (Zofran Inj) 4 mg NOW STAT IV 02/21/18 13:28 02/21/18 13:29 DC 02/21/18 13:44 4 MG Morphine Sulfate (MoRPHine SULFATE INJ) 4 mg NOW STAT IV 02/21/18 13:28 02/21/18 13:29 DC 02/21/18 13:44 4 MG Prednisone (PredniSONE TAB) 20 mg NOW STAT PO 02/21/18 15:13 02/21/18 15:18 DC 02/21/18 16:05 20 MG Atenolol (Tenormin Tab) 12.5 mg NOW STAT PO 02/21/18 15:13 02/21/18 15:18 DC 02/21/18 16:01 12.5 MG Pyridostigmine [place] (Mestinon Tab) 60 mg NOW ONCE PO 02/21/18 15:15 02/21/18 15:18 DC 02/21/18 16:01 60 MG Potassium Chloride (Klor-Con M10) 40 meq NOW STAT PO 02/21/18 16:45 02/21/18 16:46 DC 02/21/18 16:45 40 MEQ ED Course The patient was seen and assessed as above. Her old records were reviewed. IV lock was initiated and she was hydrated with normal saline solution. He was medicated with Zofran 4 mg IV for nausea and morphine 4 mg IV for pain. Laboratory studies were collected including CBC with differential, CMP and lipase. Urinalysis was ordered, however the patient did not provide a sample while in the ED to send for analysis. She was given ice chips initially which she tolerated. Acute abdominal series was also obtained. Laboratory studies noted a normal white count at 9200, H&H is 12 and 36, platelet count 217,000. Electrolytes noted a potassium of 3.1, chloride 111, carbon dioxide 19 BUN 19 and creatinine 0.89. LFTs are normal. Lipase is not elevated. Acute abdominal series noted no free air or acute cardiopulmonary findings. There is a single loop of mildly dilated small bowel. A partial small bowel obstruction would be difficult to exclude but was considered unlikely per the interpreting radiologist. All laboratory and diagnostic imaging studies were reviewed with attending physician who also independently evaluated the patient. The patient was reassessed and reported that she had tolerated the ice chips well. She was feeling well enough to try oral medications, as she was concerned about taking her medications for myasthenia gravis and atrial fibrillation. She was given prednisone 20 mg orally, atenolol 12.5 mg orally in the and pyridostigmine 60 mg orally. She was also given oral fluids. Repletion of the potassium was also discussed. She was ordered 10 mEq of potassium IV here in the emergency department, however was not able to tolerate this. She asked if she could take the potassium orally. She feels better and thinks that she can keep oral medications down now. She was given 20 mEq of potassium orally in the emergency department, then an additional 10 mEq tablet 2 to take later this evening. She will also be placed on potassium 20 mEq daily for a week, with a plan to recheck her laboratory studies with her doctor at that time. Patient was educated on the worrisome signs or symptoms for which she should return to the emergency department, and expressed understanding of this. She reported good relief of her pain and rated it a 0/10 at discharge. Differential diagnoses entertained included GERD, gastritis, esophagitis, infectious versus inflammatory colitis/enteritis, food borne illness, bowel obstruction among others. Medical Decision See emergency department course. Medication Reconcilliation Current Medication List: was personally reviewed by me Blood Pressure Screening Patient's blood pressure: Elevated blood pressure Blood pressure disposition: Elevated BP felt to be situational Improved with symptomatic relief Impression Primary Impression: Nausea, vomiting and diarrhea Additional Impressions: Diffuse abdominal pain Hypokalemia Departure Information Prescriptions Potassium Chloride (POTASSIUM CHLORIDE ER) 10 Meq Tab 2 TAB PO DAILY, #30 TAB Prov: Romana Campos PA 02/21/18 Ondasetron Odt (ZOFRAN ODT) 4 Mg Tab 4 MG SL Q4 Y for Nausea or Vomiting, #20 TAB Prov: Romana Campos PA 02/21/18 Referrals Deng Lezama D.O. (PCP) Patient Instructions My [facility] Additional Instructions DO NOT drive, drink alcohol, operate machinery, or perform dangerous activities today. You were given medications in the ER that can affect your ability to safely function or operate a vehicle. Potassium chloride 10 mEq: Take 2 tablets 1 time daily 7 days. Zofran(odansetron) tablets 4mg: Take one and allow it to dissolve in your mouth every four to six hours as needed for nausea or vomiting. Ibuprofen(Motrin, Advil) may be used for fever or pain. Use 600mg every six hours as needed. Take with food. Avoid using more than 2400mg in a 24 hour period. Do not use 2400mg per day for more than three consecutive days without physician direction. Prolonged inappropriate use can lead to stomach upset or ulcers. (AND/OR) Acetaminophen(Tylenol) may be used for fever or pain. Use 1000mg every six hours as needed. Avoid using more than 4000mg in a 24 hour period. Rest and drink plenty of fluids as tolerated. Slow sips of water or sports drinks are recommended instead of large amounts all at once. Continue current medications. Once your stomach is settled start with a clear liquid diet (jello, soup broth, etc.) and then advance as tolerated. You should avoid full, heavy meals for about 24 hrs from the time your symptoms resolved. Return to the ER for persistent vomiting, fevers, abdominal pain, chest pains, palpitations difficulty breathing, black or bloody stools, worsening of your condition, or as needed. Follow up with your primary physician in 2-3 days for a recheck of your current condition. You should have your potassium level rechecked. Problem Qualifiers
--- NOTE | 2018-02-21 18:13 | EMERGENCY ROOM VISIT NOTE ---
ED Visit Note First contact with patient: 13:08 I have personally seen and evaluated the patient with the PA. I agree with the diagnosis and management decisions and have been personally involved in the case. Please see Karuna Campos PA-C's notes for further details of the history, physical and visit.
== END 2018-02-21 17:15 | disposition home or self-care (01) ==
LOC: C.EDB 12:02 → C.EDC 17:15
DX: R11.2 Nausea with vomiting, unspecified (principal); R19.7 Diarrhea, unspecified; R10.9 Unspecified abdominal pain; E87.6 Hypokalemia; Z86.718 Personal history of other venous thrombosis and embolism; Z90.49 Acquired absence of other specified parts of digestive tract; K21.9 Gastro-esophageal reflux disease without esophagitis; Z98.51 Tubal ligation status; Z90.710 Acquired absence of both cervix and uterus; Z87.11 Personal history of peptic ulcer disease; M16.10 Unilateral primary osteoarthritis, unspecified hip; F41.9 Anxiety disorder, unspecified; I48.91 Unspecified atrial fibrillation; G70.00 Myasthenia gravis without (acute) exacerbation; Z79.82 Long term (current) use of aspirin; Z79.899 Other long term (current) drug therapy

== ENCOUNTER → 2018-05-04 | Outpatient (CLI) | payer OTHER ==
[~2018-05-04] MED LIST changes: +COLE1TAB PO; -FOLI1TAB8 PO; +FOLI800T PO; +GABA-112 PO; +GABA-113 PO; -MULTTAB58 PO; +ONDA4TAB10 SL; +POTA-74 PO; +POTA99TA PO; +PRD20 PO; -PRED10TA PO
== END | disposition home or self-care (01) ==
LOC: C.LAB1850 14:10
PROVIDERS: ATTEND Internal Medicine Endocrinology, Diabetes & Metabolism
DX: E03.8 Other specified hypothyroidism (principal)

== ENCOUNTER 2023-12-09 16:50 | Observation (INO) ==
--- NOTE | 2023-12-09 17:03 | ED Triage Note ---
Date of Service December 09, 2023 Provider in Triage Author: Avinash Tinajero History of Present Illness This patient was briefly evaluated while in triage. An abbreviated physical exam was performed. This patient is a 73-year-old Female who presents to the ED for evaluation of weakness and dyspnea. No cough. Notes history of Myasthenia gravis. Physical Exam GENERAL: 73 year old female. In no acute distress. SKIN: No lesions or rashes. HEART: Regular rate and rhythm. LUNGS: Clear to auscultation. Dyspnic. NEURO: Alert and oriented. No deficits. MUSCULOSKELETAL: No deformities to inspection of the extremities. PSYCH: Patient is pleasant and answers all questions appropriately. Initial orders for labs and / or imaging were placed and patient was placed in the waiting area until a bed is available. Please see further documentation for the full ED course.
[2023-12-09 17:48] LABS: Hematocrit (blood only) 40.7 % (37.0-47.0); Hemoglobin 13.3 g/dl (12.0-16.0); Mean Corpuscular Hemoglobin 29.1 pg (25.0-34.0); Mean Corpuscular Hgb Conc 32.7 g/dL (32.0-36.0); Mean Corpuscular Volume 89.1 fL (80.0-100.0); Mean Platelet Volume 10.8 fL (9.4-12.4); Nucleated RBC # (auto) 0.03 K/uL (0.00-0.12); Nucleated RBC % (auto) 0.2 %; Platelet Count 222 K/uL (130-400); RDW Coefficient of Variation 16.2 % (11.5-14.5); RDW Standard Deviation 52.3 fL (36.4-46.3); Red Blood Count 4.57 M/uL (4.20-5.40); White Blood Count 12.21 K/ul (4.8-10.8)
[2023-12-09 17:50] LABS: Alanine Aminotransferase 27 U/L (7-52); Albumin Globulin Ratio 1.4 (0.9-2); Albumin Level 4.3 gm/dl (3.4-5.0); Alkaline Phosphatase 44 U/L (34-104); Anion Gap 12 (3-11); Aspartate Aminotransferase 27 U/L (13-39); BUN Creatinine Ratio 18.9 (10-20); Bilirubin,Total 0.4 mg/dl (0.2-1.0); Blood Urea Nitrogen 21 mg/dl (6-23); Calcium 9.6 mg/dl (8.6-10.3); Carbon Dioxide 22 mmol/L (21-32); Chloride 104 mmol/L (98-107); Est GFR (African American) 57.5 ml/min; Est GFR (Non-African American) 49.6 ml/min; Globulin 3.1 gm/dl (2.5-4.0); Glucose 163 mg/dl (70-99(Fasting)); Potassium 4.3 mmol/L (3.5-5.1); Sodium 138 mmol/L (136-145); Total Protein 7.4 gm/dl (6.0-8.3)
[2023-12-09 17:58] LABS: Troponin I High Sensitivity 7.2 pg/ml (0-14)
[2023-12-09 18:01] LABS: INR 0.9 (0.9-1.1); Partial Thromboplastin Ratio 0.8; Partial Thromboplastin Time 23 Seconds (21-31); Prothrombin Time 10.1 Seconds (9.0-12.0)
--- NOTE | 2023-12-09 18:01 | XRay Report ---
SINGLE VIEW CHEST CLINICAL HISTORY: Dyspnea FINDINGS: An AP, portable, upright chest radiograph is compared to study dated 01/26/2023 and correlat ed with chest CT dated 10/08/2021. The examination is degraded by portable technique and apical lordo tic positioning. The patient is status post midline sternotomy. The heart is enlarged. The pulmonary vasculature is noncongested. Chronic interstitial thickening is similar to previous. Foci of parenchy mal scarring are seen throughout both lungs. There is chronic elevation of the right hemidiaphragm. N o airspace consolidation or large pleural effusion is identified. No pneumothorax is seen. The skelet al structures are osteopenic. The bony thorax is grossly intact. IMPRESSION: Cardiomegaly with no acute cardiopulmonary abnormality identified. ACT 112: Negative or not required by law. Electronically signed by: Antoine Mcmahan M.D. 12/09/2023 6:00 PM
[2023-12-09 18:05] LABS: Thyroid Stimulating Hormone 0.021 uIu/ml (0.300-4.500)
--- NOTE | 2023-12-09 18:07 | Emergency Department Note ---
Impression & Plan Shortness of breath, Hypertension, Abnormal ECG ED Provider Note NAME: JAMIE PEDERSON AGE: 73 SEX: F : 1950 ARRIVES VIA: Walk-In INFORMANT: Patient ED PROVIDER(S): Aleks Arciniega DO CHIEF COMPLAINT: shortness of breath HPI: Patient is a 73-year-old female with a past medical history of dysphagia, obstructive sleep apnea, diverticulosis, GERD, hypertension, hyperlipidemia, A- fib, anxiety, myasthenia gravis as well as CHF for shortness of breath which has been worsening over the past 2 weeks. Denies any headache or change in vision. No chest pain or belly pain. No nausea, vomiting, or diarrhea. No dysuria, urgency, or frequency. No other exacerbating or remitting factors. She was seen by her PCP and referred in for admission for her shortness of breath. ADDITIONAL HISTORY OBTAINED: Per HPI Chronic Medical/Social Conditions Affecting Care: Per HPI PAST MEDICAL HISTORY:See Below PAST SURGICAL HISTORY:See Below FAMILY HISTORY:See Below SOCIAL HISTORY:See Below HOME MEDICATIONS:See Below ALLERGIES:See Below VITALS:See Below PHYSICAL EXAMINATION: GENERAL: Sitting up in bed, alert, well appearing, well nourished, no distress, non-toxic EYE EXAM: normal conjunctiva. PERRL and EOM's grossly intact. OROPHARYNX: mucous membranes are moist NECK: supple, no nuchal rigidity, no adenopathy, non-tender LUNGS: Clear to auscultation. Normal chest wall mechanics HEART: no murmurs, S1 normal and S2 normal ABDOMEN: abdomen soft, non-tender, normo-active bowel sounds, no masses, no rebound or guarding. BACK: Back is symmetrical on inspection and there is no deformity, no midline tenderness, no CVA tenderness. SKIN: no rashes and no bruising UPPER EXTREMITIES: upper extremities are grossly normal. LOWER EXTREMITIES: No pitting edema. NEURO EXAM: Normal sensorium, cranial nerves II-XII grossly intact, normal speech, no gross weakness of arms, no gross weakness of legs. MEDICAL DECISION MAKING: Patient is a 73-year-old female with a past medical history of restrictive lung disease, myasthenia gravis and CHF who presents the ER for shortness of breath. IV was established blood work was obtained. She does take apixaban. Considered PE but doubtful especially in light of her not missing any doses. Labs show mild leukocytosis of 12,000. No significant anemia. INR unremarkable. BMP along LFTs bilirubin was unremarkable. Troponin was negative. Lipase unremarkable. UA was contaminated. Viral panel was negative. Chest x-ray was clean. Respiratory was contacted for a full forced vital capacity but has not been done upon admission. Did discuss the case with the hospitalist for further evaluation management treatment. Consults/Care Managements Discussions: Per [facility] Triage Nursing notes reviewed. Limited review of prior medical records performed Vital Signs: reviewed and remarkable for no significant abnormalities Differential diagnosis: Differential diagnoses includes but is not limited to pneumonia, bronchitis, COPD/Asthma exacerbation, pneumothorax, pulmonary embolism, congestive heart failure, acute coronary syndrome ER treatment provided: See below Diagnostics interpreted by me include EKG and cardiac monitoring as listed below: -Cardiac Monitoring: An order was placed for continuous cardiac monitoring. The monitor shows a rate of 60 with sinus rhythm. -ECG: Sinus rhythm rate 79 Normal axis No PVCs T wave inversion in the inferior leads as well as ST depressions QTc 433 ST depressions in the high lateral leads are new in comparison to previous -Laboratory studies:Interpreted by me as stated above in MDM and shown below. Imaging studies: Xrays: As interpreted by me: Portable AP upright 1 view of the chest shows no focal infiltrate CTs show: none Procedures:none Critical Care: None Past Med/Surg History Medical History (Updated 12/09/23 @ 21:43 by Celestine Herbert MD) DVT (deep venous thrombosis) (06/07/13) 2007 ? reason (was placed on blood thinner for short time) Melena Incorrect entry Overactive bladder GERD (gastroesophageal reflux disease) Hypothyroidism Low iron iron infusion 10/2023 ? Pulmonary emboli 2007 ? reason (on coumadin for short time) Myasthenia gravis CHF (congestive heart failure) Atrial fibrillation followed by Dr. Owens>holter monitor device on presently>to be worn until 11/27/23 Sleep apnea cpap Degenerative disc disease Surgical History History of cataract surgery rt/left History of thymectomy History of total hysterectomy with bilateral salpingo-oophorectomy (BSO) History of bilateral tubal ligation History of total right hip replacement History of colonoscopy with polypectomy History of esophagogastroduodenoscopy (EGD) History of cholecystectomy History of tooth extraction History of cardiac cath ? 10+yrs ago @ [facility] – [place]--no stents Family History (Updated 12/06/23 @ 15:21 by Migdalia Gunter) Brother Family history of diabetes mellitus Brother Family history of diabetes mellitus Mother Stroke Heart disease Father Leukemia Other Diabetes No family history of adverse response to anesthesia No family history of bleeding disorder Denies family history of Lung disease Asthma Social History (Updated 12/06/23 @ 15:22 by Migdalia Gunter) Smoking Status: Never smoker Second Hand Exposure: Yes (past exposure); Do You Dip or Chew Tobacco: No; Hx Alcohol Use: Yes Hx Substance Use: No Preferred Language: Setswana Communication Ability: Effective Visual Impairment: No Limitations Hearing Ability: Normal Gas Pit Worker Required: No Beliefs That Will Affect Care: None marital status: Current Living Situation: Family Current Living Situation Comment: Lives with son current occupational status: retired Feels Safe at Home: Yes Assistive Devices: CPAP, Glasses and Nebulizer Allergies Allergies Allergy/AdvReac Type Severity Reaction Status Date / Time propoxyphene Allergy Intermediate muscle Verified 12/09/23 18:35 cramps Rsjbjba-LKB-RlY Reductase Allergy Mild WEAKNESS Verified 12/09/23 18:35 Inhibitor [Dhmkifi-Jnw-Hnu Reductase Inhibitor] Home Meds Home Medications Medication Instructions Recorded Confirmed atenolol 25 mg tablet 12.5 mg PO BID 08/03/19 12/09/23 gabapentin 300 mg capsule 300 mg PO HS 08/03/19 12/09/23 pyridostigmine bromide 180 mg 180 mg PO HS 08/03/19 12/09/23 tablet,extended release (Mestinon Timespan) pyridostigmine bromide 60 mg 60 mg PO QID 08/03/19 12/09/23 tablet (Mestinon) sertraline 100 mg tablet 100 mg PO QAM 08/03/19 12/09/23 apixaban 5 mg tablet (Eliquis) 5 mg PO BID 12/16/21 12/09/23 omeprazole 40 mg capsule,delayed 40 mg PO QAM 06/24/22 12/09/23 release azathioprine 50 mg tablet (Imuran) 50 mg PO BID 01/13/23 12/09/23 prednisone 10 mg tablet 30 mg PO DAILY 07/16/23 12/09/23 amiodarone 200 mg tablet (Pacerone) 200 mg PO QAM 11/18/23 12/09/23 furosemide 40 mg tablet 40 mg PO DAILY PRN Weight Gain 11/18/23 12/09/23 sacubitril 24 mg-valsartan 26 mg 1 tab PO BID 11/18/23 12/09/23 tablet (Entresto) spironolactone 25 mg tablet 12.5 mg PO QAM 11/18/23 12/09/23 colestipol 1 gram tablet 2 g PO QID 12/06/23 12/09/23 cyanocobalamin (vitamin B-12) 1,000 mcg IM MONTHLY 12/09/23 12/09/23 1,000 mcg/mL injection solution Previous Rx's Medication Instructions Recorded immun glob G 10 gram/50 mL(20 See Rx Instructions subcut 08/25/21 %)-pro-IgA 0-50 mcg/mL .COMPLEX #50 mL subcutaneous soln (Hizentra) epinephrine 0.3 mg/0.3 mL 0.3 mg (0.3 mL) IM Q15M PRN 10/02/21 injection, auto-injector (EpiPen anaphylaxis #2 ea 2-Kyaw) Oxygen Home E0424 #1 ea 01/20/22 Auto Titrating CPAP #1 ea 08/13/22 CPAP Supplies #1 ea 08/13/22 levothyroxine 200 mcg tablet 200 mcg PO QAM #90 tabs 12/06/23 Results & Data (ED) Vital Signs Vital Signs - 24 hr 12/09/23 16:57 12/09/23 17:55 12/09/23 17:55 Temperature 36.5 C Temperature Source Temporal Artery Scan Pulse Rate 73 Pulse Rate [Finger] 61 Respiratory Rate 26 H 20 Respiratory Effort / Characteristics Short of Breath Non-Labored Spontaneous Respiratory Depth Normal Blood Pressure 136/70 Blood Pressure [Left Arm] 147/72 H Blood Pressure Mean 92 Blood Pressure Mean [Left Arm] 97 Blood Pressure Position [Left Arm] Sitting Pulse Oximetry 97 98 97 Oxygen Delivery Method Room Air Room Air Room Air Oxygen Flow Rate 0 Sepsis Recent Fever Within 48 Hours No Sepsis New/Unexplained Change in Mental Status No Sepsis Action Taken by Nursing No Action Required 12/09/23 17:55 12/09/23 18:14 12/09/23 19:48 Temperature Temperature Source Oral Pulse Rate 60 Pulse Rate [Finger] 59 L Respiratory Rate 22 Respiratory Effort / Characteristics Non-Labored Respiratory Depth Normal Blood Pressure Blood Pressure [Left Arm] 136/74 Blood Pressure Mean Blood Pressure Mean [Left Arm] 94 Blood Pressure Position [Left Arm] Pulse Oximetry 96 95 Oxygen Delivery Method Room Air Room Air Oxygen Flow Rate Sepsis Recent Fever Within 48 Hours Sepsis New/Unexplained Change in Mental Status Sepsis Action Taken by Nursing 12/09/23 19:48 12/09/23 21:48 Temperature Temperature Source Pulse Rate Pulse Rate [Finger] 56 L Respiratory Rate 22 18 Respiratory Effort / Characteristics Non-Labored Respiratory Depth Normal Blood Pressure Blood Pressure [Left Arm] 188/86 H Blood Pressure Mean Blood Pressure Mean [Left Arm] 120 Blood Pressure Position [Left Arm] Pulse Oximetry 95 95 Oxygen Delivery Method Room Air Room Air Oxygen Flow Rate Sepsis Recent Fever Within 48 Hours Sepsis New/Unexplained Change in Mental Status Sepsis Action Taken by Nursing Laboratory Data 12/09/23 17:18 12/09/23 17:18 Lab Results 12/09/23 12/09/23 Range/Units 17:18 18:28 WBC 12.21 H (4.8-10.8) K/ul RBC 4.57 (4.20-5.40) M/uL Hgb 13.3 (12.0-16.0) g/dl Hct 40.7 (37.0-47.0) % MCV 89.1 (80.0-100.0) fL MCH 29.1 (25.0-34.0) pg MCHC 32.7 (32.0-36.0) g/dL RDW Std Deviation 52.3 H (36.4-46.3) fL RDW Coeff of [place] 16.2 H (11.5-14.5) % Plt Count 222 (130-400) K/uL MPV 10.8 (9.4-12.4) fL Immature Gran % (Auto) 1.7 % Neut % (Auto) 93.9 % Lymph % (Auto) 1.7 % Maries % (Auto) 2.4 % Eos % (Auto) 0.0 % Baso % (Auto) 0.3 % Neut # (Auto) 11.46 H (1.40-6.50) K/uL Lymph # (Auto) 0.21 L (1.20-3.40) K/uL Maries # (Auto) 0.29 (0.11-0.59) K/uL Eos # (Auto) 0.00 (0.00-0.50) K/uL Baso # (Auto) 0.04 (0.00-0.20) K/uL Immature Gran # (Auto) 0.21 H (0.01-0.20) K/uL Absolute Nucleated RBC 0.03 (0.00-0.12) K/uL Nucleated RBC % (auto) 0.2 % PT 10.1 (9.0-12.0) Seconds INR 0.9 (0.9-1.1) APTT 23 (21-31) Seconds PTT Ratio 0.8 Sodium 138 (136-145) mmol/L Potassium 4.3 (3.5-5.1) mmol/L Chloride 104 (98-107) mmol/L Carbon Dioxide 22 (21-32) mmol/L Anion Gap 12 H (3-11) BUN 21 (6-23) mg/dl Creatinine 1.11 (0.6-1.2) mg/dl Est Cr Clr Drug Dosing Not Reportable Est GFR ( Amer) 57.5 ml/min Est GFR (Non-Af Amer) 49.6 ml/min BUN/Creatinine Ratio 18.9 (10-20) Glucose 163 H (70-99(Fasting)) mg/dl Calcium 9.6 (8.6-10.3) mg/dl Magnesium 2.0 (1.7-2.4) mg/dl Total Bilirubin 0.4 (0.2-1.0) mg/dl AST 27 (13-39) U/L ALT 27 (7-52) U/L Alkaline Phosphatase 44 (34-104) U/L Troponin I High Sens 7.2 (0-14) pg/ml B-Natriuretic Peptide 92 (0-100) pg/ml Total Protein 7.4 (6.0-8.3) gm/dl Albumin 4.3 (3.4-5.0) gm/dl Globulin 3.1 (2.5-4.0) gm/dl Albumin/Globulin Ratio 1.4 (0.9-2) Lipase 47 (11-82) U/L TSH 0.021 L (0.300-4.500) uIu/ml Free T4 1.18 (0.61-1.60) ng/dl Urine Color Dark Yellow Urine Appearance Clear (Clear) Urine pH 5.0 (4.5-7.5) Ur Specific [place] 1.028 (1.000-1.030) Urine Protein 1+ H (Negative) Urine Glucose (UA) Negative (Negative) Urine Ketones Trace H (Negative) Urine Blood Negative (Negative) Urine Nitrite Negative (Negative) Urine Bilirubin 1+ H (Negative) Urine Urobilinogen Negative (Negative) Ur Leukocyte Esterase Trace H (Negative) Urine WBC (Auto) 1-5 (0-5) /hpf Urine RBC (Auto) 0-4 (0-4) /hpf U Hyaline Cast (Auto) 1-5 (0-5) /lpf U Epithel Cells (Auto) >30 H (0-5) /lpf Urine Bacteria (Auto) Negative (Negative) Adenovirus (PCR) Not Detected (NotDetected) B. pertussis DNA (PCR) Not Detected (NotDetected) B.parapertussis DNA PCR Not Detected (NotDetected) C. pneumoniae DNA (PCR) Not Detected (NotDetected) Coronavirus OC43 (PCR) Not Detected (NotDetected) Coronavirus HKU1 (PCR) Not Detected (NotDetected) Coronavirus 229E (PCR) Not Detected (NotDetected) SARS-CoV-2 (PCR) Not Detected (NotDetected) Coronavirus NL63 (PCR) Not Detected (NotDetected) Human Metapneumovir PCR Not Detected (NotDetected) Influenza Type A (PCR) Not Detected (NotDetected) Influenza Type B (PCR) Not Detected (NotDetected) M. pneumoniae (PCR) Not Detected (NotDetected) Parainfluenza 1 (PCR) Not Detected (NotDetected) Parainfluenza 2 (PCR) Not Detected (NotDetected) Parainfluenza 3 (PCR) Not Detected (NotDetected) Parainfluenza 4 (PCR) Not Detected (NotDetected) RSV (PCR) Not Detected (NotDetected) Entero/Rhino (PCR) Not Detected (NotDetected) Administered Medications Discontinued Medications Furosemide (Furosemide 40 Mg/4 Ml Vial) 40 mg IV ONE ONE Stop: 12/09/23 21:05 Last Admin: 12/09/23 21:51 Dose: 40 mg Documented By: ADAL Imaging Data Radiologist's Impression: Chest X-Ray 12/09/23 17:03 SINGLE VIEW CHEST CLINICAL HISTORY: Dyspnea FINDINGS: An AP, portable, upright chest radiograph is compared to study dated 01/26/2023 and correlated with chest CT dated 10/08/2021. The examination is degraded by portable technique and apical lordotic positioning. The patient is status post midline sternotomy. The heart is enlarged. The pulmonary vasculature is noncongested. Chronic interstitial thickening is similar to previous. Foci of parenchymal scarring are seen throughout both lungs. There is chronic elevation of the right hemidiaphragm. No airspace consolidation or large pleural effusion is identified. No pneumothorax is seen. The skeletal structures are osteopenic. The bony thorax is grossly intact. IMPRESSION: Cardiomegaly with no acute cardiopulmonary abnormality identified. ACT 112: Negative or not required by law. Electronically signed by: Antoine Mcmahan M.D. 12/09/2023 6:00 PM Discharge Plan Visit Data Chief Complaint: Shortness of Breath/Dyspnea Stated Complaint: WEAKNESS, SOB ED Provider: Aleks Arciniega Discharge Problem: Shortness of breath, Hypertension, Abnormal ECG Forms Stand Alone Forms: My [employer] Prescriptions Prescriptions: No Action Hizentra 10 gram/50 mL (20 %) solution See Rx Instructions SUBCUT .COMPLEX Qty: 50 11RF Rx Instructions: 11 gm subcut every week APPROVED 08/22/21-08/22/22 AK# [id number] epinephrine [EpiPen 2-Kyaw] 0.3 mg/0.3 mL auto-injector 0.3 mg IM Q15M PRN (Reason: anaphylaxis) Qty: 2 3RF (DME) Oxygen Home E0424 Liters Per Minute See Rx Instructions .Route Qty: 1 0RF Rx Instructions: Discontinue Oxygen levothyroxine 200 mcg tablet 200 mcg PO QAM Qty: 90 1RF Eliquis 5 mg tablet 5 mg PO BID (DME) CPAP Supplies Misc See Rx Instructions .MEDSUPPLY Qty: 1 0RF Rx Instructions: CPAP supplies. G47.33 (DME) Auto Titrating CPAP Misc See Rx Instructions .MEDSUPPLY Qty: 1 0RF Rx Instructions: Auto PAP with 4-16cm H20. Lifetime usage. G47.33 omeprazole 40 mg capsule,delayed release(DR/EC) 40 mg PO QAM prednisone 10 mg tablet 30 mg PO DAILY Patient Comments: 20mg qam/10mg at lunch time pyridostigmine bromide [Mestinon] 60 mg tablet 60 mg PO QID pyridostigmine bromide [Mestinon Timespan] 180 mg tablet extended release 180 mg PO HS sertraline 100 mg tablet 100 mg PO QAM atenolol 25 mg tablet 12.5 mg PO BID gabapentin 300 mg capsule 300 mg PO HS azathioprine [Imuran] 50 mg tablet 50 mg PO BID Patient Comments: Pt reports she takes 50mg in AM 50 MG in PM colestipol 1 gram tablet 2 g PO QID cyanocobalamin (vitamin B-12) [Vitamin B-12] 1,000 mcg/mL Solution 1,000 mcg IM MONTHLY furosemide 40 mg Tablet 40 mg PO DAILY PRN (Reason: Weight Gain) amiodarone [Pacerone] 200 mg Tablet 200 mg PO QAM spironolactone 25 mg Tablet 12.5 mg PO QAM Entresto 24-26 mg Tablet 1 tab PO BID Referrals Referrals: Deng Lezama DO [Primary Care Provider] - Discharge Problem: Hypertension Qualifiers: Hypertension type: unspecified Qualified Code(s): I10 - Essential (primary) hypertension
[2023-12-09 18:18] LABS: Adenovirus PCR Not Detected (NotDetected); Bordetella parapertussis PCR Not Detected (NotDetected); Bordetella pertussis PCR Not Detected (NotDetected); Chlamydia pneumoniae PCR Not Detected (NotDetected); Coronavirus 229E PCR Not Detected (NotDetected); Coronavirus CoV-2 (COVID19)PCR Not Detected (NotDetected); Coronavirus HKU1 PCR Not Detected (NotDetected); Coronavirus NL63 PCR Not Detected (NotDetected); Coronavirus OC43PCR Not Detected (NotDetected); Human Metapneumovirus PCR Not Detected (NotDetected); Influenza A PCR Not Detected (NotDetected); Influenza B PCR Not Detected (NotDetected); Mycoplasma pneumoniae PCR Not Detected (NotDetected); Parainfluenza Virus 1 PCR Not Detected (NotDetected); Parainfluenza Virus 2 PCR Not Detected (NotDetected); Parainfluenza Virus 3 PCR Not Detected (NotDetected); Parainfluenza Virus 4 PCR Not Detected (NotDetected); Respiratory Syncytial VirusPCR Not Detected (NotDetected); Rhinovirus/Enterovirus PCR Not Detected (NotDetected)
[2023-12-09 18:22] LABS: Lipase 47 U/L (11-82)
[2023-12-09 18:30] LABS: Basophils # (auto) 0.04 K/uL (0.00-0.20); Basophils % (auto) 0.3 %; Immature Granulocytes # (auto) 0.21 K/uL (0.01-0.20); Immature Granulocytes % (auto) 1.7 %; Lymphocytes # (auto) 0.21 K/uL (1.20-3.40); Lymphocytes % (auto) 1.7 %; Monocytes # (auto) 0.29 K/uL (0.11-0.59); Monocytes % (auto) 2.4 %; Neutrophils # (auto) 11.46 K/uL (1.40-6.50); Neutrophils % (auto) 93.9 %
[2023-12-09 18:40] LABS: Appearance Urine Clear (Clear); Bacteria Urine Automated Negative (Negative); Blood Urine Negative (Negative); Color Urine Dark Yellow; Epithelial Cell Urine Auto >30 /lpf (0-5); Glucose Urine UA Negative (Negative); Ketones Urine Trace (Negative); Leukocyte Esterase Urine Trace (Negative); Nitrite Urine Negative (Negative); Protein Urine 1+ (Negative); RBC Urine Automated 0-4 /hpf (0-4); Specific Gravity Urine 1.028 (1.000-1.030); Urobilinogen Urine Negative (Negative)
[2023-12-09 18:41] LABS: T4 Free Thyroxine 1.18 ng/dl (0.61-1.60)
[2023-12-09 18:42] LABS: Bilirubin Urine 1+ (Negative)
--- NOTE | 2023-12-09 21:20 | History & Physical Report ---
Date of Service December 09, 2023 Assessment & Plan (1) Dyspnea: Plan: -Ongoing progressive dyspnea with increased abdominal swelling with known history of HFrEF and recently increased salt intake -CXR demonstrating cardiomegaly w/o overt pulmonary edema or vascular congestion, BNP negative -Seemingly mild HFrEF exacerbation per history and hypervolemia on exam though labs and CXR reassuring. There may be a component of MG flare contributing as well given her other symptoms though it would be unusual to have a flare so soon after last plasmapheresis -Lasix 40 mg IV given in ER, will proceed with 20 mg IV in AM -Currently stable respiratory status on RA (2) CHF (congestive heart failure): Plan: -Last TTE available per [facility] records, pt follows with [facility] cardiology -Continue atenolol, Entresto, spironolactone -Lasix as above -Fluid restriction, low salt diet -Monitor I's and O's, daily weights -Monitor BMP (3) Dysphagia: Plan: -Worsening dysphagia over two weeks which may represent muscle weakness 2/2 MG flare though as above, unexpected to happen so soon after plasmapheresis -Continue to monitor for now, diet may need adjustment for texture (4) Generalized weakness: Plan: -Increased generalized weakness greatest in proximal LE b/l -Likely due to CHF exacerbation, deconditioning and possible MG flare -PT/OT consulted (5) Myasthenia gravis: Plan: -Pt has been adherent with her MG regimen and had plasmapheresis with [facility] specialist within past 2 months -While some of her symptoms may be explained by MG flare, again this would be surprising with recent plasmapheresis -Continue azathioprine, prednisone, pyridostigmine -Deferring IVIG for now -Deferring rheumatology consult for now (6) Leukocytosis: Plan: -Mild elevation of WBC 12.2 on admission -History does not suggest infectious source, and pt is on daily prednisone- possible glucocorticoid leukocytosis -Monitor CBC -ESR, CRP, procalcitonin added to AM labs (7) Atrial fibrillation: Plan: -Currently in sinus rhythm, rate-controlled -Continue atenolol, amiodarone -Continue Eliquis for anticoagulation (8) CARRIE on CPAP: Plan: -CPAP Hs -She is adherent to CPAP at home (9) Central hypothyroidism: Plan: -TSH 0.021 on admission -May need levothyroxine dose adjustment as outpatient- currently on levothyroxine 200 mg -Amiodarone toxicity should also be considered -Recheck thyroid panel as outpatient (10) GERD (gastroesophageal reflux disease): Plan: -Continue omeprazole (11) Hypertension: Plan: -BP stable -Continue atenolol (12) Hyperlipidemia: Plan: -Noted history of statin intolerance -Continue colestipol (13) Anxiety: Plan: -Continue Zoloft (14) DJD (degenerative joint disease) of hip: Plan: -Continue gabapentin -May need dose adjustment/held if respiratory status worsens (15) DVT (deep venous thrombosis): Plan: -Noted history -Continue Eliquis (16) Pulmonary emboli: Plan: -Noted history -Continue Eliquis (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 Pt notes 2 weeks' worth of progressive dyspnea and difficulty swallowing, along with generalized weakness which is most notable in her legs. Denies any chest pain, headache, vision change, N/V/D, dysuria or other symptoms. She did see PCP on and was sent to ER due to suspected myasthenia gravis flare. She did have plasmapheresis done recently at [facility] sometime in September/October and states these symptoms do not feel similar to her previous myasthenia gravis flares. She does state that her abdomen has swelled over these past 2 weeks and notes increased salt intake over past several days as her daughter has been bringing meals to her- these include meatloaf and roast beef. Denies any increased leg swelling or observable weight gain. She did take her Lasix 40 mg PO PRN over past 2 days but notes little relief from it Pt arrived to ER hemodynamically stable. Initial evaluation significant for WBC 12.21, TSH 0.021, UA appearing infected but with epithelial cells. CMP, troponin wnl. CXR with cardiomegaly. EKG NSR and PACs with mild T wave inversions of anterolateral leads. At present, pt denies dyspnea but only because she has remained at rest. Reports exertional dyspnea with any movement. Allergies Allergy/AdvReac Type Severity Reaction Status Date / Time propoxyphene Allergy Intermediate muscle Verified 12/09/23 18:35 cramps Aytdgkh-MDP-ZhO Reductase Allergy Mild WEAKNESS Verified 12/09/23 18:35 Inhibitor [Bkesrtj-Qdc-Hkj Reductase Inhibitor] Home Medications Medication Instructions Recorded Confirmed Type atenolol 25 mg tablet 12.5 mg PO BID 08/03/19 12/09/23 History gabapentin 300 mg capsule 300 mg PO HS 08/03/19 12/09/23 History pyridostigmine bromide 180 mg 180 mg PO HS 08/03/19 12/09/23 History tablet,extended release (Mestinon Timespan) pyridostigmine bromide 60 mg 60 mg PO QID 08/03/19 12/09/23 History tablet (Mestinon) sertraline 100 mg tablet 100 mg PO QAM 08/03/19 12/09/23 History immun glob G 10 gram/50 mL(20 See Rx Instructions subcut 08/25/21 12/09/23 Rx %)-pro-IgA 0-50 mcg/mL .COMPLEX #50 mL subcutaneous soln (Hizentra) epinephrine 0.3 mg/0.3 mL 0.3 mg (0.3 mL) IM Q15M PRN 10/02/21 12/09/23 Rx injection, auto-injector (EpiPen anaphylaxis #2 ea 2-Kyaw) apixaban 5 mg tablet (Eliquis) 5 mg PO BID 12/16/21 12/09/23 History Oxygen Home E0424 #1 ea 01/20/22 12/06/23 Rx omeprazole 40 mg capsule,delayed 40 mg PO QAM 06/24/22 12/09/23 History release Auto Titrating CPAP #1 ea 08/13/22 12/06/23 Rx CPAP Supplies #1 ea 08/13/22 12/06/23 Rx azathioprine 50 mg tablet (Imuran) 50 mg PO BID 01/13/23 12/09/23 History prednisone 10 mg tablet 30 mg PO DAILY 07/16/23 12/09/23 History amiodarone 200 mg tablet (Pacerone) 200 mg PO QAM 11/18/23 12/09/23 History furosemide 40 mg tablet 40 mg PO DAILY PRN Weight Gain 11/18/23 12/09/23 History sacubitril 24 mg-valsartan 26 mg 1 tab PO BID 11/18/23 12/09/23 History tablet (Entresto) spironolactone 25 mg tablet 12.5 mg PO QAM 11/18/23 12/09/23 History colestipol 1 gram tablet 2 g PO QID 12/06/23 12/09/23 History levothyroxine 200 mcg tablet 200 mcg PO QAM #90 tabs 12/06/23 12/09/23 Rx cyanocobalamin (vitamin B-12) 1,000 mcg IM MONTHLY 12/09/23 12/09/23 History 1,000 mcg/mL injection solution Past Med/Surg History Medical History (Updated 12/09/23 @ 21:43 by Celestine Herbert MD) DVT (deep venous thrombosis) (06/07/13) 2007 ? reason (was placed on blood thinner for short time) Melena Incorrect entry Overactive bladder GERD (gastroesophageal reflux disease) Hypothyroidism Low iron iron infusion 10/2023 ? Pulmonary emboli 2007 ? reason (on coumadin for short time) Myasthenia gravis CHF (congestive heart failure) Atrial fibrillation followed by Dr. Owens>holter monitor device on presently>to be worn until 11/27/23 Sleep apnea cpap Degenerative disc disease Surgical History History of cataract surgery rt/left History of thymectomy History of total hysterectomy with bilateral salpingo-oophorectomy (BSO) History of bilateral tubal ligation History of total right hip replacement History of colonoscopy with polypectomy History of esophagogastroduodenoscopy (EGD) History of cholecystectomy History of tooth extraction History of cardiac cath ? 10+yrs ago @ [facility] [place]--no stents Family History (Updated 12/06/23 @ 15:21 by Migdalia Gunter) Brother Family history of diabetes mellitus Brother Family history of diabetes mellitus Mother Stroke Heart disease Father Leukemia Other Diabetes No family history of adverse response to anesthesia No family history of bleeding disorder Denies family history of Lung disease Asthma Social History (Updated 12/06/23 @ 15:22 by Migdalia Gunter) Smoking Status: Never smoker Second Hand Exposure: No; Do You Dip or Chew Tobacco: No; Hx Alcohol Use: No Hx Substance Use: No Preferred Language: Greenlandic Communication Ability: Effective Visual Impairment: No Limitations Hearing Ability: Normal Safety Relief Valve Technician Required: No Beliefs That Will Affect Care: None marital status: Current Living Situation: Family Current Living Situation Comment: Lives with son current occupational status: retired Feels Safe at Home: Yes Assistive Devices: CPAP and Glasses Review of Systems Review of Systems: Per HPI/Subjective Physical Exam Physical Exam: General: tired-appearing, conversational dyspnea noted HEENT: PERRL, EOMI, conjunctivae clear without injection, anicteric sclerae, moist mucous membranes, clear oropharynx without exudate or erythema Neck: supple, trachea midline, no thyromegaly, no JVD, no cervical lymphadenopathy CV: RRR, normal S1 and S2, no murmurs Resp: Clear in upper lung brennan, faint bibasilar crackles, no increased work of breathing Abd: Soft, nontender, slightly distended without fluid wave, no guarding or rebound, no hepatosplenomegaly MSK: Normal bulk of all four extremities Neuro: AOx3, 4/5 weakness of b/l LE and UE with dorsiflexion/plantarflexion and credit relationship manager strength b/l. Normal sensorium. No particular ptosis observed b/l. Facial muscle weakness noted Skin: no rashes or lesions, warm and dry Ext: trace LE peripheral edema b/l without erythema or warmth, capillary refill <2s in all four extremities, 2+ LE peripheral pulses b/l Results & Data Results & Data Vital Signs (Past 12 Hours) Vital Signs Temp Pulse Pulse Resp BP BP Pulse Ox 12/09/23 19:48 22 95 12/09/23 19:48 59 L 22 136/74 95 12/09/23 18:14 60 12/09/23 17:55 96 12/09/23 17:55 61 20 147/72 H 97 12/09/23 17:55 98 12/09/23 16:57 36.5 C 73 26 H 136/70 97 O2 Del Method O2 Flow Rate 12/09/23 19:48 Room Air 12/09/23 19:48 Room Air 12/09/23 18:14 12/09/23 17:55 Room Air 12/09/23 17:55 Room Air 12/09/23 17:55 Room Air 0 12/09/23 16:57 Room Air Supervising Physician Co-Signing Physician Notes Attending addendum: I have physically seen this patient, have supervised the medical residents activities, and agree with the H&P unless as otherwise noted. Assessment and Plan: HFrEF exacerbation- The patient will be admitted to telemetry for serial cardiac enzymes, serial EKG's, cardiac rhythm monitoring and a 2-D echocardiogram with Dopplers. Continue atenolol, Entresto and spironolactone with hold parameters Furosemide 40 mg IV given in the ED, and will continue with furosemide 20 mg IV every morning Follow serial BMP and magnesium levels Dysphagia- Concern regarding association with history of myasthenia gravis No signs of aspiration on imaging, but will need to be followed closely for microaspiration Myasthenia gravis- Continue azathioprine, prednisone and pyridostigmine Monitor for symptoms of flareup Follows with [facility] Remaining orders and notations as noted Resident Activity Tracking Resident Involvement: Resident Care Provided Care Provided: Adult Hospital Medicine
[2023-12-09] MEDS: FUROSEMIDE 40 MG/4 ML VIAL IV ONE (21:51)
[2023-12-10] MEDS: LEVOTHYROXINE SODIUM 200 MCG TABLET PO SCH (05:14)
[2023-12-10 07:56] LABS: Hematocrit (blood only) 37.4 % (37.0-47.0); Hemoglobin 12.2 g/dl (12.0-16.0); Mean Corpuscular Hemoglobin 28.6 pg (25.0-34.0); Mean Corpuscular Hgb Conc 32.6 g/dL (32.0-36.0); Mean Corpuscular Volume 87.8 fL (80.0-100.0); Mean Platelet Volume 10.5 fL (9.4-12.4); Platelet Count 170 K/uL (130-400); RDW Standard Deviation 51.2 fL (36.4-46.3); Red Blood Count 4.26 M/uL (4.20-5.40); White Blood Count 8.43 K/ul (4.8-10.8)
[2023-12-10] MEDS: APIXABAN 5 MG TABLET PO SCH (08:03)
[2023-12-10] MEDS: ATENOLOL 25 MG TABLET PO SCH (08:03)
[2023-12-10] MEDS: AMIODARONE 200 MG TAB PO SCH (08:03)
[2023-12-10] MEDS: SPIRONOLACTONE 12.5 MG TAB PO SCH (08:04)
[2023-12-10] MEDS: PANTOprazole 40 MG TAB PO SCH (08:04)
[2023-12-10] MEDS: VALSARTAN/SACUBITRIL 26/24MG TAB PO SCH (08:04)
[2023-12-10] MEDS: predniSONE 10 MG TABLET PO SCH (08:04)
[2023-12-10] MEDS: FUROSEMIDE INJ 20 MG/2 ML VIAL IV SCH (08:04)
[2023-12-10] MEDS: azaTHIOprine 50 MG TAB PO SCH (08:04)
[2023-12-10] MEDS: pyRIDostigmine bromide 60 MG TAB PO SCH (08:04)
[2023-12-10] MEDS: SERTRALINE HCL 100 MG TABLET PO SCH (08:04)
[2023-12-10 08:12] LABS: BUN Creatinine Ratio 20.4 (10-20); C Reactive Protein 1.03 mg/dl (0-0.5); Calcium 9.7 mg/dl (8.6-10.3); Est GFR (African American) 59.4 ml/min; Est GFR (Non-African American) 51.2 ml/min; Potassium 3.3 mmol/L (3.5-5.1)
[2023-12-10] MEDS: COLESTIPOL HCL 1 GM TAB PO SCH (10:52)
--- NOTE | 2023-12-10 11:52 | Hospitalist Progress Note ---
Date of Service December 10, 2023 Assessment & Plan (1) Dyspnea: Plan: Etiology could be multifactorial, given the history of congestive heart failure, myasthenia gravis and also hypothyroidism However upon evaluation, patient stated dyspnea has improved but she still gets short of breath whenever she walks around. Will obtain 2D echo Check BNP Her TSH is suppressed, although given her central hypothyroidism it is expected that her TSH is always been below and not a good indicator. If her shortness of breath worsens, we may need to transfer to ICU for an evaluation of NIF Continue her home meds Continue IV Lasix 40 mg daily (2) CHF (congestive heart failure): Plan: -Last TTE available per [facility] records, pt follows with [facility] cardiology -Continue atenolol, Entresto, spironolactone -Lasix as above -Fluid restriction, low salt diet -Monitor I's and O's, daily weights -Monitor BMP (3) Dysphagia: Plan: -Worsening dysphagia over two weeks which may represent muscle weakness 2/2 MG flare though as above, unexpected to happen so soon after plasmapheresis -Continue to monitor for now, diet may need adjustment for texture (4) Generalized weakness: Plan: -Increased generalized weakness greatest in proximal LE b/l -Likely due to CHF exacerbation, deconditioning and possible MG flare -Some improvement overnight -PT/OT consulted (5) Myasthenia gravis: Plan: -Pt has been adherent with her MG regimen and had plasmapheresis with [facility] specialist within past 2 months -Continue azathioprine, prednisone, pyridostigmine -Will hold IVIG for now -Deferring rheumatology consult for now (6) Leukocytosis: Plan: -Mild elevation of WBC 12.2 on admission -History does not suggest infectious source, and pt is on daily prednisone- possible glucocorticoid leukocytosis -Monitor CBC -ESR, CRP, procalcitonin added to AM labs (7) Atrial fibrillation: Plan: -Currently in sinus rhythm, rate-controlled -Continue atenolol, amiodarone -Continue Eliquis for anticoagulation (8) CARRIE on CPAP: Plan: -CPAP Hs -She is adherent to CPAP at home (9) Central hypothyroidism: Plan: -TSH is suppressed however TSH is hardly good indicator in central hypothyroidism -She is not displaying any signs of hyperparathyroidism -She has done well on 200 mcg of levothyroxine daily we will continue -Ask her to follow-up with endocrinology outpatient (10) GERD (gastroesophageal reflux disease): Plan: -Continue omeprazole (11) Hypertension: Plan: -BP stable -Continue atenolol (12) Hyperlipidemia: Plan: -Noted history of statin intolerance -Continue colestipol (13) Anxiety: Plan: -Continue Zoloft (14) DJD (degenerative joint disease) of hip: Plan: -Continue gabapentin -May need dose adjustment/held if respiratory status worsens (15) DVT (deep venous thrombosis): Plan: -Noted history -Continue Eliquis (16) Pulmonary emboli: Plan: -Noted history -Continue Eliquis (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 Although states she still gets short of breath whenever she walks around. Review of Systems Review of Systems: All systems reviewed are negative, apart from the ones contained in the history. Physical Exam Physical Exam: The patient is awake, alert and oriented 3, well developed and well nourished, normocephalic and atraumatic, lying in bed and in no acute distress. HEENT--PERRL, EOMI, mucous membranes and oropharynx mildly dry Neck--supple. No JVD. No bruits. Thyroid normal, trachea midline, no adenopathy. Heart--normal S1 and S2. No murmurs, rubs or gallops. Lungs--clear bilaterally, no respiratory distress, no accessory muscle use. Abdomen--normal bowel sounds and soft. Extremities--no cyanosis or clubbing. No edema. Dermatologic--normal skin turgor, normal color, no abnormal lymph nodes, no rash. Neurologic--cranial nerves II through XII grossly intact. Rheumatologic--normal range of motion. Psychiatric--normal affect. Results & Data Results & Data Vital Signs (Past 12 Hours) Vital Signs Temp Pulse Pulse Resp BP Pulse Ox O2 Del Method 12/10/23 11:02 97.3 F L 77 18 160/78 H 94 Room Air 12/10/23 08:09 98.1 F 89 18 124/55 L 91 Room Air 12/10/23 07:28 65 12/10/23 07:14 BiPAP 12/10/23 04:10 97.7 F 89 18 131/84 94 Room Air 12/10/23 03:17 69 17 96 12/10/23 01:27 Room Air 12/10/23 00:50 66 16 94 12/10/23 00:01 59 L PG Care Time/CCT Total # of Minutes Spent Total Time Spent with Patient: Total time spent is greater than 50% in coordination of care (as documented) at patient's floor/unit and/or counseling patient: Coding Level of Care Code 43738 SUB INP/OBS CARE 2/35MIN Diagnoses Dyspnea R06.00 CHF (congestive heart failure) I50.9 Dysphagia R13.10 Generalized weakness R53.1 Myasthenia gravis G70.00 Leukocytosis D72.829 Atrial fibrillation I48.91 CARRIE on CPAP G47.33; Z99.89 Central hypothyroidism E03.8 GERD (gastroesophageal reflux disease) K21.9 Hypertension I10 Hyperlipidemia E78.5 Anxiety F41.9 DJD (degenerative joint disease) of hip M16.9 DVT (deep venous thrombosis) I82.409 Pulmonary emboli I26.99 Good syndrome D83.8 Time Spent (min) 35
--- NOTE | 2023-12-10 11:53 | Electrocardiogram Report ---
Test Reason : Blood Pressure : / mmHG Vent. Rate : 079 BPM Atrial Rate : 079 BPM P-R Int : 148 ms QRS Dur : 068 ms QT Int : 378 ms P-R-T Axes : 000 026 115 degrees QTc Int : 433 ms Sinus rhythm with Premature atrial complexes Abnormal ECG When compared with ECG of 26-NOV-2020 12:22, Premature atrial complexes are now Present Confirmed by Jose D Manzanares ([id number]) on 12/10/2023 11:53:04 AM Referred By: Deng Lezama Confirmed By:Jose D Manzanares
--- NOTE | 2023-12-10 13:22 | XCELERA ---
[id number] \\[id number]
[2023-12-10] MEDS: POTASSIUM CHLORIDE CRTAB 20 MEQ TABCR PO STA (16:46)
[2023-12-10] MEDS: GABAPENTIN 300 MG CAP PO SCH (20:07)
--- NOTE | 2023-12-10 20:35 | Billing Data ---
Date of Service December 10, 2023 Coding Level of Care Code 46645 INT INP/OBS CARE
[2023-12-10] MEDS: PYRIDOSTIGMINE PO SCH (21:14)
[2023-12-11] MEDS: LEVOTHYROXINE SODIUM 200 MCG TABLET PO SCH (05:32)
[2023-12-11] MEDS ORDERED: LEVOTHYROXINE SODIUM 100 MCG TABLET PO SCH (06:30)
[2023-12-11 06:34] LABS: Hematocrit (blood only) 36.7 % (37.0-47.0); Hemoglobin 11.8 g/dl (12.0-16.0); Mean Corpuscular Hemoglobin 28.7 pg (25.0-34.0); Mean Corpuscular Hgb Conc 32.2 g/dL (32.0-36.0); Mean Corpuscular Volume 89.3 fL (80.0-100.0); Mean Platelet Volume 10.7 fL (9.4-12.4); Platelet Count 188 K/uL (130-400); RDW Coefficient of Variation 16.3 % (11.5-14.5); RDW Standard Deviation 52.3 fL (36.4-46.3); Red Blood Count 4.11 M/uL (4.20-5.40)
[2023-12-11 07:00] LABS: BUN Creatinine Ratio 23.1 (10-20); Calcium 9.2 mg/dl (8.6-10.3); Creatinine Clr Calc Pharmacy 49.5 ml/min; Est GFR (African American) 53.9 ml/min; Est GFR (Non-African American) 46.5 ml/min; Potassium 3.5 mmol/L (3.5-5.1)
[2023-12-11] MEDS: FUROSEMIDE INJ 20 MG/2 ML VIAL IV SCH (08:52)
--- NOTE | 2023-12-11 10:26 | Discharge Summary ---
Date of Service December 11, 2023 Admission HPI Per Admitting Provider Pt is 73 yo F with PMH HFrEF, CARRIE, DVT/PE, paroxysmal AF, Good syndrome, myasthenia gravis (hx of thymectomy), hypothyroidism, GERD, HTN, HLD presenting with dyspnea. Pt notes 2 weeks' worth of progressive dyspnea and difficulty swallowing, along with generalized weakness which is most notable in her legs. Denies any chest pain, headache, vision change, N/V/D, dysuria or other symptoms. She did see PCP on and was sent to ER due to suspected myasthenia gravis flare. She did have plasmapheresis done recently at [facility] sometime in and states these symptoms do not feel similar to her previous myasthenia gravis flares. She does state that her abdomen has swelled over these past 2 weeks and notes increased salt intake over past several days as her daughter has been bringing meals to her- these include meatloaf and roast beef. Denies any increased leg swelling or observable weight gain. She did take her Lasix 40 mg PO PRN over past 2 days but notes little relief from it Pt arrived to ER hemodynamically stable. Initial evaluation significant for WBC 12.21, TSH 0.021, UA appearing infected but with epithelial cells. CMP, troponin wnl. CXR with cardiomegaly. EKG NSR and PACs with mild T wave inversions of anterolateral leads. At present, pt denies dyspnea but only because she has remained at rest. Reports exertional dyspnea with any movement. Principal Diagnosis Generalized weakness Discharge Exam The patient is awake, alert and oriented 3, well developed and well nourished, normocephalic and atraumatic, lying in bed and in no acute distress. HEENT--PERRL, EOMI, mucous membranes and oropharynx mildly dry Neck--supple. No JVD. No bruits. Thyroid normal, trachea midline, no bob nopathy. Heart--normal S1 and S2. No murmurs, rubs or gallops. Lungs--clear bilaterally, no respiratory distress, no accessory muscle use. Abdomen--normal bowel sounds and soft. Extremities--no cyanosis or clubbing. No edema. Dermatologic--normal skin turgor, normal color, no abnormal lymph nodes, no rash. Neurologic--cranial nerves II through XII grossly intact. Rheumatologic--normal range of motion. Psychiatric--normal affect. Discharge Data Allergies Allergy/AdvReac Type Severity Reaction Status Date / Time propoxyphene Allergy Intermediate muscle Verified 12/09/23 18:35 cramps Jvqeclj-RCC-JeT Reductase Allergy Mild WEAKNESS Verified 12/09/23 18:35 Inhibitor [Bywhrvp-Rsc-Lun Reductase Inhibitor] Consultations 12/09/23 20:11 ED Decision to Admit Stat Hospital Course (1) Dyspnea: -Ongoing progressive dyspnea with increased abdominal swelling with known history of HFrEF and recently increased salt intake -CXR demonstrating cardiomegaly w/o overt pulmonary edema or vascular congestion, BNP negative -Seemingly mild HFrEF exacerbation per history and hypervolemia on exam though labs and CXR reassuring. There may be a component of MG flare contributing as well given her other symptoms though it would be unusual to have a flare so soon after last plasmapheresis -Lasix 40 mg IV given in ER, will proceed with 20 mg IV in AM -Currently stable respiratory status on RA (2) CHF (congestive heart failure): -Last TTE available per [facility] records, pt follows with [facility] cardiology -Continue atenolol, Entresto, spironolactone -Lasix as above -Fluid restriction, low salt diet -Monitor I's and O's, daily weights -Monitor BMP (3) Dysphagia: -Worsening dysphagia over two weeks which may represent muscle weakness 2/2 MG flare though as above, unexpected to happen so soon after plasmapheresis -Now improved, patient tolerating regular diet -Continue to monitor for now, diet may need adjustment for texture (4) Generalized weakness: -Increased generalized weakness greatest in proximal LE b/l on admission -Likely due to CHF exacerbation, deconditioning and possible MG flare -PT/OT consulted -Patient said her strength is back to baseline (5) Myasthenia gravis: -Pt has been adherent with her MG regimen and had plasmapheresis with [facility] specialist within past 2 months -While some of her symptoms may be explained by MG flare, again this would be surprising with recent plasmapheresis -Continue azathioprine, prednisone, pyridostigmine -Deferring IVIG for now -Deferring rheumatology consult for now (6) Leukocytosis: -Mild elevation of WBC 12.2 on admission -History does not suggest infectious source, and pt is on daily prednisone- possible glucocorticoid leukocytosis -Monitor CBC -ESR, CRP, procalcitonin added to AM labs (7) Atrial fibrillation: -Currently in sinus rhythm, rate-controlled -Continue atenolol, amiodarone -Continue Eliquis for anticoagulation (8) CARRIE on CPAP: -CPAP Hs -She is adherent to CPAP at home (9) Central hypothyroidism: -TSH 0.021 on admission -May need levothyroxine dose adjustment as outpatient- currently on levothyroxine 200 mg -Amiodarone toxicity should also be considered -Recheck thyroid panel as outpatient (10) GERD (gastroesophageal reflux disease): -Continue omeprazole (11) Hypertension: -BP stable -Continue atenolol (12) Hyperlipidemia: -Noted history of statin intolerance -Continue colestipol (13) Anxiety: -Continue Zoloft (14) DJD (degenerative joint disease) of hip: -Continue gabapentin -May need dose adjustment/held if respiratory status worsens (15) DVT (deep venous thrombosis): -Noted history -Continue Eliquis (16) Pulmonary emboli: -Noted history -Continue Eliquis (17) Good syndrome: -Noted history, has also had thymectomy in past Plan FENGI: Fluid restriction, low-salt Code status: DNR/DNI DVT prophylaxis: Eliquis Isolation: None Unit: Medical/surgical with telemetry Disposition planning: Discharge home Total Time Total Time Spent Total Time Spent (In Minutes): 35 Discharge Plan Discharge Items Patient Disposition: Home - Self-Care Reason For Visit: RESPIRATORY FAILURE Discharge Diagnosis: Weakness Activity: Resume your previous activity Non-emergency contact: Primary Care Provider and Neurologist Call non-emergency contact if: you have any medication questions Follow-up/Referrals: Deng Lezama, [Primary Care Provider] - Diet: Regular Addtl Attending Provider Instructions: Please make appointment to follow up with your regular doctors Pending Studies at Discharge: No Stand-Alone Forms: My Dr [facility] [employer], Smoking Cessation Medications and DC Order Prescriptions: Continued Hizentra 10 gram/50 mL (20 %) solution See Rx Instructions SUBCUT .COMPLEX Qty: 50 11RF Rx Instructions: 11 gm subcut every week APPROVED 08/22/21-08/22/22 HI# [id number] epinephrine [EpiPen 2-Kyaw] 0.3 mg/0.3 mL auto-injector 0.3 mg IM Q15M PRN (Reason: anaphylaxis) Qty: 2 3RF (DME) Oxygen Home [id number] Liters Per Minute See Rx Instructions .Route Qty: 1 0RF Rx Instructions: Discontinue Oxygen levothyroxine 200 mcg tablet 200 mcg PO QAM Qty: 90 1RF Eliquis 5 mg tablet 5 mg PO BID (DME) CPAP Supplies Misc See Rx Instructions .MEDSUPPLY Qty: 1 0RF Rx Instructions: CPAP supplies. G47.33 (DME) Auto Titrating CPAP Misc See Rx Instructions .MEDSUPPLY Qty: 1 0RF Rx Instructions: Auto PAP with 4-16cm H20. Lifetime usage. G47.33 omeprazole 40 mg capsule,delayed release(DR/EC) 40 mg PO QAM prednisone 10 mg tablet 30 mg PO DAILY Patient Comments: 20mg qam/10mg at lunch time pyridostigmine bromide [Mestinon] 60 mg tablet 60 mg PO QID pyridostigmine bromide [Mestinon Timespan] 180 mg tablet extended release 180 mg PO HS sertraline 100 mg tablet 100 mg PO QAM atenolol 25 mg tablet 12.5 mg PO BID gabapentin 300 mg capsule 300 mg PO HS azathioprine [Imuran] 50 mg tablet 50 mg PO BID Patient Comments: Pt reports she takes 50mg in AM 50 MG in PM colestipol 1 gram tablet 2 g PO QID cyanocobalamin (vitamin B-12) 1,000 mcg/mL Solution 1,000 mcg IM MONTHLY furosemide 40 mg Tablet 40 mg PO DAILY PRN (Reason: Weight Gain) amiodarone [Pacerone] 200 mg Tablet 200 mg PO QAM spironolactone 25 mg Tablet 12.5 mg PO QAM Entresto 24-26 mg Tablet 1 tab PO BID Discharge Orders: Discharge Order (Routine); Ordered 12/11/23 Ordered By: Sean Benítez Admission Data Admit Date/Time: 12/09/23 21:18 Attending Provider: Sean Benítez Admit Provider: Celestine Herbert Primary Care Provider: Deng Lezama Other Providers: Teddy Sanchez Coding Level of Care Code 61928 INP/OBS DISCH >30 MIN Diagnoses Dyspnea R06.00 CHF (congestive heart failure) I50.9 Dysphagia R13.10 Generalized weakness R53.1 Myasthenia gravis G70.00 Leukocytosis D72.829 Atrial fibrillation I48.91 CARRIE on CPAP G47.33; Z99.89 Central hypothyroidism E03.8 GERD (gastroesophageal reflux disease) K21.9 Hypertension I10 Hyperlipidemia E78.5 Anxiety F41.9 DJD (degenerative joint disease) of hip M16.9 DVT (deep venous thrombosis) I82.409 Pulmonary emboli I26.99 Good syndrome D83.8 Time Spent (min) 35
== END 2023-12-11 11:35 | disposition home or self-care (01) | DRG 291 ==
LOC: ED 16:50 → INTOOBSV 21:18 → SUATTDRO 21:18 → 2N 21:18

== ENCOUNTER 2024-11-15 09:06 | Inpatient (IN) ==
--- NOTE | 2024-11-15 09:41 | Emergency Department Note ---
Impression & Plan Dyspnea, Respiratory syncytial virus (RSV), Hypomagnesemia ED Provider Note ED Provider Note NAME: JAMIE PEDERSON AGE:74 SEX: Female : 1950 ARRIVES VIA: Private vehicle INFORMANT: Patient ED PROVIDER(s): Kaci Patel DO CHIEF COMPLAINT: Increased shortness of breath, increased back and abdominal pain HPI: This is a 74-year-old female who presents to the emergency department due to increased shortness of breath as well as increased back and abdominal pain. Family states patient has had URI symptoms for the last week. She did contact her PCP yesterday and was started on Augmentin. She does have a history of congestive heart failure and wears oxygen chronically. She also has a history of interstitial lung disease. She states today she had an increase in her chronic back/flank and abdominal pain. Daughter states she does have a history of prior compression fractures. No recent change in urine or stools. She states she is taking all of her medications as prescribed. She denies fevers or chills. Patient does wear oxygen at home, 3 L/min chronically. He does use inhalers intermittently. PAST MEDICAL HISTORY:See Below PAST SURGICAL HISTORY:See Below FAMILY HISTORY:See Below SOCIAL HISTORY:See Below HOME MEDICATIONS:See Below ALLERGIES:See Below VITALS:See Below PHYSICAL EXAMINATION: GENERAL: alert, unwell appearing, well nourished, mild distress, non-toxic EYE EXAM: normal conjunctiva, PERRL and EOM's grossly intact OROPHARYNX: no exudate, no erythema, lips, buccal mucosa, and tongue normal and mucous membranes are moist NECK: supple, no nuchal rigidity, no adenopathy, non-tender LUNGS: Decreased to auscultation. Normal chest wall mechanics, tachypnea noted, increased work of breathing, rhonchi and rales at bilateral bases, worse on the left HEART: no murmurs, S1 normal and S2 normal ABDOMEN: abdomen soft, non-tender, normo-active bowel sounds, no masses, no rebound or guarding. BACK: Back is symmetrical on inspection and there is no deformity, no midline tenderness, no CVA tenderness. SKIN: no rashes, petechiae, orbruising UPPER EXTREMITIES: upper extremities are grossly normal. FROM, nml pulses b/l. LOWER EXTREMITIES: No pitting edema. FROM, nml pulses b/l. NEURO EXAM: Normal sensorium, cranial nerves II-XII grossly intact, normal speech, no facial droop,nogross weakness of arms, no gross weakness of legs. Gross sensation intact. No ataxia. Vital Signs: reviewed and remarkable Differential Diagnosis: pneumonia, bronchitis, COPD/Asthma exacerbation, pneumothorax, pulmonary embolism, congestive heart failure, acute coronary syndrome, as well as others were considered MEDICAL DECISION MAKING: THis is a 74 yo female who presents to the ER with concern for worsening cough and shortness of breath after 1 week of cold like symptoms with increased back/abdominal pain that she feels is likely from coughing. She was afebrile and VS stable on arrival. She did have increased WOB and required more oxygen compared to what she routinely wears at home. Labs drawn and sent, IV established, EKG and CXR performed and interpreted at bedside, and patient placed on telemetry. Nasal swab obatined and sent also. Given increased wob and tachypnea, we discussed additional airway support and patient comfortable with bipap as she wears cpap for carrie. She was found to have rsv. Patient given additional steroids as a precaution given underlying lung hx and rsv. She does use steroids chronically for her myasthenic gravis. She was given a neb with improvement. She was found to have low magnesium and was given IV repletion. We discussed all results at bedside. Case discussed with the hospitalist team for additional evaluation and mgmt. Consultation(s): 1000: Discussed with respiratory therapy for trial of high flow versus BiPAP given increased work of breathing and increased oxygen requirements. ER Treatment Provided: See below Diagnostics Interpreted By Me: -ECG: Normal sinus at 100, normal axis, normal intervals, no acute ST/T wave changes -Cardiac Monitoring: An order was placed for continuous cardiac monitoring. The monitor shows a rate of 98 with normal sinus rhythm. -Laboratory studies: As stated above and show below. -Imaging studies: cxr: Mild cardiomegaly, chronic appearing interstitial markings bilaterally, no wide mediastinum, no focal consolidation, no pleural effusion Triage Nursing Note Reviewed Prior/Outside Records Reviewed Critical Care: Critical care of 44 min performed to assess and manage high likelihood of life- threatening respiratory distress, involving labs and imaging performed with assessment to evaluate dyspnea diagnosis with frequent reassessment. This time includes bedside time, treatment discussions with patient/family/consultants, documentation time and excludes procedure time. Past Med/Surg History Problem List (Updated 11/15/24 @ 16:41 by Darshan Lozoya MD) Acute respiratory failure with hypercapnia Current chronic use of systemic steroids Left sided abdominal pain Respiratory failure with hypercapnia Microcytic anemia Hypomagnesemia (Acute) Respiratory syncytial virus (RSV) (Acute) Dyspnea (Acute) Osteoporosis Thoracic back pain Pulmonary hypertension (HFpEF) heart failure with preserved ejection fraction Generalized weakness DVT (deep venous thrombosis) (06/07/13) 2007 ? 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 Owens Sleep apnea cpap Good syndrome Heart palpitations (Chronic) Anxiety (Chronic) Medical History (Updated 11/15/24 @ 16:41 by Darshan Lozoya MD) Overactive bladder GERD (gastroesophageal reflux disease) Hypothyroidism Low iron iron infusion 10/2023 ? Pulmonary emboli 2007 ? reason (on coumadin for short time) Myasthenia gravis CHF (congestive heart failure) Atrial fibrillation followed by Dr. Owens>holter monitor device on presently>to be worn until 11/27/23 Sleep apnea cpap Degenerative disc disease Surgical History History of cataract surgery rt/left History of thymectomy History of total hysterectomy with bilateral salpingo-oophorectomy (BSO) History of bilateral tubal ligation History of total right hip replacement History of colonoscopy with polypectomy History of esophagogastroduodenoscopy (EGD) History of cholecystectomy History of tooth extraction History of cardiac cath ? 10+[place] ago [place] [facility] [place] Family History (Updated 12/06/23 @ 15:21 by Migdalia Gunter) Brother Family history of diabetes mellitus Brother Family history of diabetes mellitus Mother Stroke Heart disease Father Leukemia Other Diabetes No family history of adverse response to anesthesia No family history of bleeding disorder Denies family history of Lung disease Asthma Social History (Updated 12/06/23 @ 15:22 by Migdalia Gunter) Smoking Status: Never smoker Second Hand Exposure: No; Do You Dip or Chew Tobacco: No; Hx Alcohol Use: No Hx Substance Use: No Preferred Language: Urdu Communication Ability: Effective Visual Impairment: No Limitations Hearing Ability: Normal Epic Director Required: No Beliefs That Will Affect Care: None marital status: Current Living Situation: Alone Current Living Situation Comment: with son current occupational status: retired Feels Safe at Home: Yes Assistive Devices: Glasses, Oxygen - Continuous and Walker Allergies Allergies Allergy/AdvReac Type Severity Reaction Status Date / Time propoxyphene Allergy Intermediate muscle Verified 11/15/24 12:33 cramps [id number] Reductase Allergy Mild WEAKNESS Verified 11/15/24 12:33 Inhibitor [Awmbwoi-Kcz-Ciy Reductase Inhibitor] Home Meds Home Medications Medication Instructions Recorded Confirmed atenolol 25 mg tablet 12.5 mg PO BID 08/03/19 11/15/24 gabapentin 300 mg capsule 300 mg PO HS 08/03/19 11/15/24 pyridostigmine bromide 180 mg 180 mg PO HS 08/03/19 11/15/24 tablet,extended release (Mestinon Timespan) pyridostigmine bromide 60 mg 60 mg PO QID 08/03/19 11/15/24 tablet (Mestinon) sertraline 100 mg tablet 100 mg PO QAM 08/03/19 11/15/24 apixaban 5 mg tablet (Eliquis) 5 mg PO BID 12/16/21 11/15/24 omeprazole 40 mg capsule,delayed 40 mg PO QAM 06/24/22 11/15/24 release azathioprine 50 mg tablet (Imuran) 50 mg PO BID 01/13/23 11/15/24 prednisone 10 mg tablet 10 mg PO DAILY 07/16/23 11/15/24 furosemide 40 mg tablet 40 mg PO UD Weight Gain 11/18/23 11/15/24 sacubitril 24 mg-valsartan 26 mg 1 tab PO BID 11/18/23 11/15/24 tablet (Entresto) spironolactone 25 mg tablet 12.5 mg PO QAM 11/18/23 11/15/24 colestipol 1 gram tablet 2 g PO BID 12/06/23 11/15/24 cyanocobalamin (vitamin B-12) 1,000 mcg IM MONTHLY 12/09/23 11/15/24 1,000 mcg/mL injection solution amoxicillin 875 mg-potassium 1 tab PO Q12H 11/15/24 11/15/24 clavulanate 125 mg tablet prednisone 20 mg tablet 20 mg PO DAILY 11/15/24 11/15/24 sulfamethoxazole 800 1 tab PO 3XWK 11/15/24 11/15/24 mg-trimethoprim 160 mg tablet (Bactrim DS) Previous Rx's Medication Instructions Recorded epinephrine 0.3 mg/0.3 mL 0.3 mg (0.3 mL) IM Q15M PRN 10/02/21 injection, auto-injector (EpiPen anaphylaxis #2 ea 2-Kyaw) Oxygen Home #1 ea 01/20/22 Auto Titrating CPAP #1 ea 08/13/22 CPAP Supplies #1 ea 08/13/22 famotidine 20 mg tablet (Acid 20 mg PO DAILY #90 tabs 05/25/24 [place] (famotidine)) lidocaine 5 % topical patch 1 patch topical DAILY #15 ea 08/26/24 (Lidoderm) cyclobenzaprine 10 mg tablet 10 mg PO Q8H spasm #30 tabs 08/29/24 levothyroxine 175 mcg tablet 175 mcg PO QAM #30 tabs 09/11/24 immun glob G 10 gram/50 mL(20 See Rx Instructions subcut 09/20/24 %)-pro-IgA 0-50 mcg/mL .COMPLEX #50 mL subcutaneous soln (Hizentra) ergocalciferol (vitamin D2) 1,250 1,250 mcg PO Q7D #12 caps 09/27/24 mcg (50,000 unit) capsule teriparatide 20 mcg/dose (600 20 mcg (0.08 mL) subcut DAILY #2.4 10/10/24 mcg/2.4 mL) subcutaneous pen mL injector Results & Data (ED) Vital Signs Vital Signs - 24 hr 11/15/24 11:31 11/15/24 11:57 11/15/24 12:27 Pulse Rate 78 79 79 Pulse Rate [Apical] Pulse Rate from SpO2 Sensor 79 79 Respiratory Rate 26 H 20 24 Respiratory Effort / Characteristics Blood Pressure 177/86 H 153/82 H 128/62 Blood Pressure [Right Arm] Blood Pressure Mean 123 105 84 Blood Pressure Mean [Right Arm] Pulse Oximetry 100 100 100 Oxygen Delivery Method BiPAP Fraction of Inspired Oxygen 11/15/24 13:00 11/15/24 13:28 11/15/24 13:51 Pulse Rate 87 Pulse Rate [Apical] 84 76 Pulse Rate from SpO2 Sensor Respiratory Rate 22 18 Respiratory Effort / Characteristics Non-Labored Spontaneous Blood Pressure Blood Pressure [Right Arm] 167/78 H Blood Pressure Mean Blood Pressure Mean [Right Arm] 107 Pulse Oximetry 100 99 Oxygen Delivery Method BiPAP BiPAP Fraction of Inspired Oxygen 30 Laboratory Data 11/15/24 Unknown 11/16/24 02:09 Lab Results 11/15/24 11/15/24 Range/Units 09:36 12:47 VBG pH 7.36 (7.36-7.41) VBG pCO2 58 H (38-50) mmHg VBG pO2 26 mmHg VBG HCO3 33 mmol/L VBG O2 Saturation < 60.0 % VBG Base Excess 5.6 mEq/L Adenovirus (PCR) Not Detected (NotDetected) B. pertussis DNA (PCR) Not Detected (NotDetected) B.parapertussis DNA PCR Not Detected (NotDetected) C. pneumoniae DNA (PCR) Not Detected (NotDetected) Coronavirus OC43 (PCR) Not Detected (NotDetected) Coronavirus HKU1 (PCR) Not Detected (NotDetected) Coronavirus 229E (PCR) Not Detected (NotDetected) SARS-CoV-2 (PCR) Not Detected (NotDetected) Coronavirus NL63 (PCR) Not Detected (NotDetected) Human Metapneumovir PCR Not Detected (NotDetected) Influenza Type A (PCR) Not Detected (NotDetected) Influenza Type B (PCR) Not Detected (NotDetected) M. pneumoniae (PCR) Not Detected (NotDetected) Parainfluenza 1 (PCR) Not Detected (NotDetected) Parainfluenza 2 (PCR) Not Detected (NotDetected) Parainfluenza 3 (PCR) Not Detected (NotDetected) Parainfluenza 4 (PCR) Not Detected (NotDetected) RSV (PCR) DETECTED A (NotDetected) Entero/Rhino (PCR) Not Detected (NotDetected) Administered Medications Acetaminophen (Acetaminophen 325 Mg Tab) 650 mg PO Q4H PRN PRN Reason: Pain or Fever Stop: 12/15/24 15:18 Last Admin: 11/16/24 08:37 Dose: 650 mg Documented By: CHUCKY Apixaban (Apixaban 5 Mg Tablet) 5 mg PO BID KLAUDIA Stop: 12/15/24 20:59 Last Admin: 11/16/24 11:01 Dose: 5 mg Documented By: Admin: 11/15/24 20:11 Dose: 5 mg Documented By: RONALDO Atenolol (Atenolol 25 Mg Tablet) 12.5 mg PO BID KLAUDIA Stop: 12/15/24 20:59 Last Admin: 11/16/24 07:53 Dose: 12.5 mg Documented By: Admin: 11/15/24 20:12 Dose: 12.5 mg Documented By: RONALDO Azathioprine (Azathioprine 50 Mg Tab) 50 mg PO BID KLAUDIA Stop: 12/15/24 20:59 Last Admin: 11/16/24 11:02 Dose: 50 mg Documented By: Admin: 11/15/24 20:12 Dose: 50 mg Documented By: RONALDO Budesonide (Budesonide 0.5 Mg/2 Ml Vial (Pulmicort)) 0.5 mg NEB BIDR [facility] Stop: 12/15/24 18:59 Last Admin: 11/16/24 06:31 Dose: 0.5 mg Documented By: Admin: 11/15/24 18:32 Dose: 0.5 mg Documented By: LILY Colestipol HCl (Colestipol Hcl 1 Gm Tab) 2 gm PO BID@1000,2200 KLAUDIA Stop: 12/15/24 21:59 Last Admin: 11/15/24 21:18 Dose: 2 gm Documented By: RONALDO Famotidine (Famotidine 20 Mg Tab) 20 mg PO DAILY KLAUDIA Stop: 12/16/24 08:59 Last Admin: 11/16/24 07:52 Dose: 20 mg Documented By: CTA Amiodarone HCl/Dextrose (Nexterone / D5w) 360 mg in 200 mls @ 16.667 mls/hr IV .Q12H KLAUDIA Stop: 12/16/24 10:59 Last Admin: 11/16/24 11:03 Dose: 0.5 mg/min, 16.7 mls/hr Documented By: CTA Co-signed By: DAVID Diltiazem HCl 125 mg/ Dextrose 125 mls @ 5 mls/hr IV .Q24H KLAUDIA Stop: 12/16/24 10:44 Last Admin: 11/16/24 11:00 Dose: 5 mg/hr, 5 mls/hr Documented By: CTA Co-signed By: DAVID Levothyroxine Sodium (Levothyroxine Sodium 175 Mcg Tablet) 175 mcg PO DAILYBB KLAUDIA Stop: 12/16/24 06:29 Last Admin: 11/16/24 05:08 Dose: 175 mcg Documented By: RONALDO Lidocaine (Lidocaine 5% 1 Patch) 1 patch TD DAILY KLAUDIA Stop: 12/16/24 08:59 Last Admin: 11/16/24 08:37 Dose: 1 patch Documented By: CHUCKY Misrocíoaneous (Remove Lidoderm Patch) 1 each N/A DAILY@2100 [facility] Stop: 12/15/24 20:59 Last Admin: 11/15/24 20:13 Dose: 1 each Documented By: RONALDO Miscellaneous (Remove Lidoderm Patch) 1 each N/A DAILY@2100 [facility] Stop: 12/15/24 21:59 Last Admin: 11/15/24 22:14 Dose: 1 each Documented By: RONALDO Pantoprazole Sodium (Pantoprazole 40 Mg Tab) 40 mg PO QAM [facility] Stop: 12/16/24 08:59 Last Admin: 11/16/24 11:01 Dose: 40 mg Documented By: CHUCKY Prednisone (Prednisone 20 Mg Tab) 20 mg PO DAILY KLAUDIA Stop: 12/16/24 08:59 Last Admin: 11/16/24 07:52 Dose: 20 mg Documented By: CHUCKY Prednisone (Prednisone 10 Mg Tablet) 10 mg PO DAILY KLAUDIA Stop: 12/16/24 08:59 Last Admin: 11/16/24 11:02 Dose: 10 mg Documented By: CHUCKY Pyridostigmine Wilson (Pyridostigmine Wilson 60 Mg Tab) 60 mg PO QID KLAUDIA Stop: 12/15/24 16:59 Last Admin: 11/16/24 11:02 Dose: 60 mg Documented By: Admin: 11/15/24 20:12 Dose: 60 mg Documented By: Admin: 11/15/24 18:37 Dose: Not Given Documented By: NACHO Pyridostigmine Wilson (Pt Own Med- Pyridostigmine Sustained Rel 180 Mg Tabcr) 180 mg PO [facility] Stop: 12/15/24 20:59 Last Admin: 11/15/24 20:14 Dose: 180 mg Documented By: RONALDO Sacubitril/Valsartan (Valsartan/Sacubitril 26/24mg Tab) 1 tab PO BID KLAUDIA Stop: 12/15/24 20:59 Last Admin: 11/16/24 07:52 Dose: 1 tab Documented By: Admin: 11/15/24 20:13 Dose: 1 tab Documented By: RONALDO Sertraline HCl (Sertraline Hcl 100 Mg Tablet) [facility] [place]: 12/16/24 08:59 Last Admin: 11/16/24 11:01 Dose: 100 mg Documented By: CHUCKY Spironolactone (Spironolactone 12.5 Mg Tab) 12.5 mg PO [facility] Stop: 12/16/24 08:59 Last Admin: 11/16/24 11:01 Dose: 12.5 mg Documented By: CHUCKY Discontinued Medications Albuterol (Albut/Ipratrop 3mg/0.5mg Neb 3 Ml Vial) 3 ml NEB NOW STA; Protocol Stop: 11/15/24 09:27 Last Admin: 11/15/24 10:28 Dose: 3 ml Documented By: LILY Albuterol (Albut/Ipratrop 3mg/0.5mg Neb 3 Ml Vial) 3 ml NEB NOW STA; Protocol Stop: 11/15/24 13:04 Last Admin: 11/15/24 13:51 Dose: 3 ml Documented By: LILY Albuterol (Albut/Ipratrop 3mg/0.5mg Neb 3 Ml Vial) Confirm Administered Dose 3 ml .ROUTE .STK-MED ONE Stop: 11/15/24 13:04 Last Admin: 11/15/24 13:51 Dose: Not Given Documented By: LILY Albuterol (Albut/Ipratrop 3mg/0.5mg Neb 3 Ml Vial) 3 ml NEB Q6R KLAUDIA; Protocol Stop: 12/15/24 18:59 Last Admin: 11/16/24 06:31 Dose: Not Given Documented By: Admin: 11/16/24 00:55 Dose: 3 ml Documented By: Admin: 02/05/25 18:32 Dose: Not Given Documented By: LILY Formoterol Fumarate (Formoterol 20 Mcg/2 Ml Vial) 20 mcg NEB BIDR KLAUDIA Stop: 12/15/24 18:59 Last Admin: 11/16/24 06:31 Dose: 20 mcg Documented By: Admin: 11/15/24 18:32 Dose: 20 mcg Documented By: LILY Formoterol Fumarate (Formoterol 20 Mcg/2 Ml Vial) Confirm Administered Dose 20 mcg .ROUTE .STK-MED ONE Stop: 11/15/24 17:49 Last Admin: 11/15/24 18:32 Dose: Not Given Documented By: LILY Furosemide (Furosemide 40 Mg/4 Ml Vial) 40 mg IV ONE STA Stop: 11/15/24 14:05 Last Admin: 11/15/24 14:29 Dose: 40 mg Documented By: JORGE Furosemide (Furosemide Inj 20 Mg/2 Ml Vial) 20 mg IV ONE ONE Stop: 11/16/24 06:01 Last Admin: 11/16/24 06:17 Dose: 20 mg Documented By: RONALDO Guaifenesin (Guaifenesin 600 Mg Tabcr) 600 mg PO Q12 KLAUDIA Stop: 12/15/24 20:59 Last Admin: 11/16/24 07:52 Dose: 600 mg Documented By: Admin: 11/15/24 20:12 Dose: 600 mg Documented By: RONALDO Acetaminophen (Ofirmev) 1,000 mg in 100 mls @ 400 mls/hr IV NOW STA Stop: 11/15/24 10:30 Last Infusion: 11/15/24 10:35 Dose: Infused Documented By: Admin: 11/15/24 10:20 Dose: 400 mls/hr Documented By: JORGE Magnesium Sulfate/Dextrose (Magnesium Sulfate / D5w) 1 gm in 100 mls @ 100 mls/hr IV NOW STA Stop: 11/15/24 11:25 Last Infusion: 11/15/24 12:06 Dose: Infused Documented By: Admin: 11/15/24 10:46 Dose: 100 mls/hr Documented By: SAGAR Magnesium Sulfate/Dextrose (Magnesium Sulfate / D5w) 1 gm in 100 mls @ 100 mls/hr IV NOW STA Stop: 11/15/24 13:18 Last Infusion: 11/15/24 14:57 Dose: Infused Documented By: Admin: 11/15/24 13:41 Dose: 100 mls/hr Documented By: JORGE Amiodarone HCl/Dextrose (Nexterone / D5w) 150 mg in 100 mls @ 600 mls/hr IV NOW STA Stop: 11/16/24 01:58 Last Infusion: 11/16/24 02:09 Dose: Infused Documented By: RONALDO Co-signed By: JUAN DAVID Admin: 11/16/24 01:58 Dose: 600 mls/hr Documented By: RONALDO Co-signed By: JUAN DAVID Amiodarone HCl/Dextrose (Nexterone / D5w) 360 mg in 200 mls @ 33.333 mls/hr IV ONE ONE Stop: 11/16/24 11:04 Last Admin: 11/16/24 05:07 Dose: 1 mg/min, 33.3 mls/hr Documented By: RONALDO Co-signed By: JUAN DAVID Ioversol (Optiray 320 100ml) 93 ml IV ONCE ONE Stop: 11/15/24 13:21 Last Admin: 11/15/24 13:20 Dose: 93 ml Documented By: PRICILLA Lidocaine (Lidocaine 5% 1 Patch) 1 patch TD NOW STA Stop: 11/15/24 10:17 Last Admin: 11/15/24 10:20 Dose: 1 patch Documented By: JORGE Methylprednisolone (Methylprednisolone 125 Mg/2 Ml Vial) 40 mg IV NOW STA Stop: 11/15/24 11:29 Last Admin: 11/15/24 11:34 Dose: 40 mg Documented By: JORGE Metoprolol Tartrate (Metoprolol Tartrate 1 Mg/Ml Vial) 5 mg IV NOW STA Stop: 11/16/24 00:38 Last Admin: 11/16/24 00:44 Dose: 5 mg Documented By: RONALDO Metoprolol Tartrate (Metoprolol Tartrate 1 Mg/Ml Vial) 5 mg IV NOW STA Stop: 11/16/24 01:14 Last Admin: 11/16/24 01:29 Dose: 5 mg Documented By: RONALDO Pyridostigmine Wilson (Pyridostigmine Wilson 60 Mg Tab) 60 mg PO ONE STA Stop: 11/15/24 13:57 Last Admin: 11/15/24 14:29 Dose: 60 mg Documented By: JORGE Imaging Data Radiologist's Impression: Chest X-Ray 11/15/24 09:25 XR chest 1V portable CLINICAL HISTORY: sob COMPARISON STUDY: 04/18/2024 FINDINGS: Stable CABG. Stable cardiomegaly without pulmonary vascular congestion. Stable elevation of the right hemidiaphragm. Stable hazy opacity at the left base and stable stranding opacity at the right upper lung. No pneumothorax. IMPRESSION: Stable exam. ACT 112: Negative or not required by law. Electronically signed by: Saurabh Magana M.D. 11/15/2024 10:10 AM Discharge Plan Visit Data Chief Complaint: Flu Like Symptoms Stated Complaint: ABD/BACK PAIN, VOMITING, COUGH, SOB ED Provider: Kaci Patel Discharge Problem: Dyspnea, Respiratory syncytial virus (RSV), Hypomagnesemia Patient Disposition: Admitted As Inpatient Discharge Instructions Interventions: ED Discharge Assessment Last Done: 11/15/24 15:22
[2024-11-15 10:03] LABS: Basophils # (auto) 0.05 K/uL (0.00-0.20); Basophils % (auto) 0.5 %; Eosinophils # (auto) 0.04 K/uL (0.00-0.50); Eosinophils % (auto) 0.4 %; Hematocrit (blood only) 29.2 % (37.0-47.0); Hemoglobin 8.5 g/dl (12.0-16.0); Immature Granulocytes # (auto) 0.08 K/uL (0.01-0.20); Immature Granulocytes % (auto) 0.7 %; Lymphocytes # (auto) 0.34 K/uL (1.20-3.40); Lymphocytes % (auto) 3.1 %; Mean Corpuscular Hgb Conc 29.1 g/dL (32.0-36.0); Mean Corpuscular Volume 78.9 fL (80.0-100.0); Mean Platelet Volume 10.4 fL (9.4-12.4); Monocytes # (auto) 0.59 K/uL (0.11-0.59); Monocytes % (auto) 5.5 %; Neutrophils # (auto) 9.71 K/uL (1.40-6.50); Neutrophils % (auto) 89.8 %; Platelet Count 262 K/uL (130-400); RDW Coefficient of Variation 18.2 % (11.5-14.5); RDW Standard Deviation 52.3 fL (36.4-46.3); White Blood Count 10.81 K/ul (4.8-10.8)
--- NOTE | 2024-11-15 10:12 | XRay Report ---
XR chest 1V portable CLINICAL HISTORY: sob COMPARISON STUDY: 04/18/2024 FINDINGS: Stable CABG. Stable cardiomegaly without pulmonary vascular congestion. Stable elevation of the right hemidiaphragm. Stable hazy opacity at the left base and stable stranding opacity at the ri ght upper lung. No pneumothorax. IMPRESSION: Stable exam. ACT 112: Negative or not required by law. Electronically signed by: Saurabh Magana M.D. 11/15/2024 10:10 AM
[2024-11-15 10:20] LABS: Albumin Globulin Ratio 1.2 (0.9-2); BUN Creatinine Ratio 26.9 (10-20); Bilirubin,Total 0.4 mg/dl (0.2-1.0); Creatinine Clr Calc Pharmacy 53.6 ml/min; Globulin 3.4 gm/dl (2.5-4.0); Magnesium 1.4 mg/dl (1.7-2.4); Potassium 4.2 mmol/L (3.5-5.1); Total Protein 7.4 gm/dl (6.0-8.3)
[2024-11-15] MEDS: ACETAMINOPHEN 1,000 MG/100 ML VIAL IV STA (10:20)
[2024-11-15] MEDS: LIDOCAINE 5% 1 PATCH TD STA (10:20)
[2024-11-15 10:27] LABS: Troponin I High Sensitivity 16.5 pg/ml (0-14)
[2024-11-15] MEDS: ALBUT/IPRATROP 3MG/0.5MG NEB 3 ML VIAL NEB STA ×2 (10:28→13:51)
[2024-11-15 10:33] LABS: Prothrombin Time 11.2 Seconds (9.0-12.0)
[2024-11-15 10:36] LABS: Thyroid Stimulating Hormone 0.198 uIu/ml (0.300-4.500)
[2024-11-15] MEDS: MAGNESIUM SULFATE / D5W 1 GM/100 ML BAG IV STA ×2 (10:46→13:41)
[2024-11-15 10:50] LABS: Adenovirus PCR Not Detected (NotDetected); Bordetella parapertussis PCR Not Detected (NotDetected); Bordetella pertussis PCR Not Detected (NotDetected); Chlamydia pneumoniae PCR Not Detected (NotDetected); Coronavirus 229E PCR Not Detected (NotDetected); Coronavirus CoV-2 (COVID19)PCR Not Detected (NotDetected); Coronavirus HKU1 PCR Not Detected (NotDetected); Coronavirus NL63 PCR Not Detected (NotDetected); Coronavirus OC43PCR Not Detected (NotDetected); Human Metapneumovirus PCR Not Detected (NotDetected); Influenza A PCR Not Detected (NotDetected); Influenza B PCR Not Detected (NotDetected); Mycoplasma pneumoniae PCR Not Detected (NotDetected); Parainfluenza Virus 1 PCR Not Detected (NotDetected); Parainfluenza Virus 2 PCR Not Detected (NotDetected); Parainfluenza Virus 3 PCR Not Detected (NotDetected); Parainfluenza Virus 4 PCR Not Detected (NotDetected); Respiratory Syncytial VirusPCR DETECTED (NotDetected); Rhinovirus/Enterovirus PCR Not Detected (NotDetected)
[2024-11-15 11:10] LABS: T4 Free Thyroxine 1.06 ng/dl (0.61-1.60)
--- NOTE | 2024-11-15 11:31 | Electrocardiogram Report ---
Test Reason : Blood Pressure : */* mmHG Vent. Rate : 100 BPM Atrial Rate : 100 BPM P-R Int : 134 ms QRS Dur : 68 ms QT Int : 322 ms P-R-T Axes : 4 36 58 degrees QTcB Int : 415 ms Poor data quality, interpretation may be adversely affected Normal sinus rhythm with frequent Premature atrial complexes Abnormal ECG When compared with ECG of 26-Aug-2024 14:34, Vent. rate has increased by 36 bpm Premature atrial complexes now present Confirmed by Polo Willis ([id number]) on 11/15/2024 11:31:01 AM Referred By: Confirmed By: Polo Willis
[2024-11-15] MEDS: methylPREDNISolone 125 MG/2 ML VIAL IV STA (11:34)
--- NOTE | 2024-11-15 12:22 | History & Physical Report ---
Date of Service November 15, 2024 Assessment & Plan (1) Respiratory syncytial virus (RSV): Plan: Suspect cause of her illness over the last week Droplet isolation precautions Defer ribavirin decision to pulmonology (2) Acute respiratory failure with hypercapnia: Plan: Secondary to RSV Currently tolerating BiPAP and will monitor VBG intermittently, current hypercapnia appears compensated therefore suspect this is more chronic Procalcitonin negative Sputum culture pending Consult pulmonology (3) Myasthenia gravis: Plan: NIF -20 to -40 on admission, continue to monitor for deterioration q shift but does not appear to be in crisis at this time Patient aware if she deteriorates we are unable to offer plasmapheresis at this facility but she wants to stay regardless Continue usual dosing of azathioprine, prednisone and pyridostigmine Usual neurologist at [facility] Consult neurology (4) (HFpEF) heart failure with preserved ejection fraction: Plan: BNP 145 from 179 previously, Leg edema improved from 4 days prior Will give one dose of Lasix 40mg IV now to optimize respiratory status although not in overt heart failure at this time Monitor response and preliminary continue her usual dosing (5) Hypomagnesemia: Plan: Mg level 1.4 Mg sulfate 2g IV given in the ER, will repeat level in AM (6) Microcytic anemia: Plan: Ferritin and iron studies Chronic intermittent hematochezia likely continuing, avoid constipation as suspected due to hemorrhoids Continue to monitor with AM labs (7) CARRIE on CPAP: Plan: CPAP HS (8) Restrictive lung disease: Plan: Consult pulmonology for ongoing advice with regards to steroid use (9) Atrial fibrillation: Plan: Paroxysmal, in NSR on admission Continue Eliquis Continue metoprolol succinate (10) Left sided abdominal pain: Plan: CT abdomen pelvis without acute pathology, suspect related to her chronic back pain acutely worsened in setting of current respiratory illness (11) Current chronic use of systemic steroids: Plan: Continue Bactrim for PCP prophylaxis Plan VTE Prophylaxis - Lovenox 40mg SQ daily Diet - Low Na, heart healthy diet Disposition - admit to PCU Admission and Anticipated Discharge Date Admission Date: November 15, 2024 History of Present Illness Chief Complaint: Shortness of breath Abdominal pain Primary Care Provider: Deng Lezama DO Cassidy Cisneros is a 84 year old female who presents to the ER with 1 week of shortness of breath, cough, left-sided abdominal pain. She reports that myasthenia is at baseline she is not more fatigued than usual however she did have 1 episode of difficulty swallowing last week. She has intermittent plasmapheresis for her myasthenia gravis and Dr. Schmid at [facility] in addition to azathioprine, prednisone and pyridostigmine. She reports nausea and mucus like vomiting yesterday and the night before but none currently. Abdominal pain since the start of illness, no prior history of diverticulitis, no radiation, no exacerbating factors. No diarrhea or constipation. No melena. She has hematochezia intermittently which she puts down to hemorrhoids. She also has a diagnosis of heart failure but notes no chest pain, palpitations. She does not check her weight routinely but did notice her feet more swollen on Wednesday and increased her Lasix to 60 mg daily and reports this is improved. She is chronically on 4 L/min O2. Allergies Allergy/AdvReac Type Severity Reaction Status Date / Time propoxyphene Allergy Intermediate muscle Verified 11/15/24 12:33 cramps Gunzrik-ZMN-DqU Reductase Allergy Mild WEAKNESS Verified 11/15/24 12:33 Inhibitor [Fzenmqt-Any-Bee Reductase Inhibitor] Home Medications Medication Instructions Recorded Confirmed Type atenolol 25 mg tablet 12.5 mg PO BID 08/03/19 11/15/24 History gabapentin 300 mg capsule 300 mg PO HS 08/03/19 11/15/24 History pyridostigmine bromide 180 mg 180 mg PO HS 08/03/19 11/15/24 History tablet,extended release (Mestinon Timespan) pyridostigmine bromide 60 mg 60 mg PO QID 08/03/19 11/15/24 History tablet (Mestinon) sertraline 100 mg tablet 100 mg PO QAM 08/03/19 11/15/24 History epinephrine 0.3 mg/0.3 mL 0.3 mg (0.3 mL) IM Q15M PRN 10/02/21 11/15/24 Rx injection, auto-injector (EpiPen anaphylaxis #2 ea 2-Kyaw) apixaban 5 mg tablet (Eliquis) 5 mg PO BID 12/16/21 11/15/24 History Oxygen Home #1 ea 01/20/22 09/20/24 Rx omeprazole 40 mg capsule,delayed 40 mg PO QAM 06/24/22 11/15/24 History release Auto Titrating CPAP #1 ea 08/13/22 09/20/24 Rx CPAP Supplies #1 ea 08/13/22 09/20/24 Rx azathioprine 50 mg tablet (Imuran) 50 mg PO BID 01/13/23 11/15/24 History prednisone 10 mg tablet 10 mg PO DAILY 07/16/23 11/15/24 History furosemide 40 mg tablet 40 mg PO UD Weight Gain 11/18/23 11/15/24 History sacubitril 24 mg-valsartan 26 mg 1 tab PO BID 11/18/23 11/15/24 History tablet (Entresto) spironolactone 25 mg tablet 12.5 mg PO QAM 11/18/23 11/15/24 History colestipol 1 gram tablet 2 g PO BID 12/06/23 11/15/24 History cyanocobalamin (vitamin B-12) 1,000 mcg IM MONTHLY 12/09/23 11/15/24 History 1,000 mcg/mL injection solution famotidine 20 mg tablet (Acid 20 mg PO DAILY #90 tabs 05/25/24 11/15/24 Rx [employer] (famotidine)) lidocaine 5 % topical patch 1 patch topical DAILY #15 ea 08/26/24 11/15/24 Rx (Lidoderm) cyclobenzaprine 10 mg tablet 10 mg PO Q8H spasm #30 tabs 08/29/24 11/15/24 Rx levothyroxine 175 mcg tablet 175 mcg PO QAM #30 tabs 09/11/24 11/15/24 Rx immun glob G 10 gram/50 mL(20 See Rx Instructions subcut 09/20/24 11/15/24 Rx %)-pro-IgA 0-50 mcg/mL .COMPLEX #50 mL subcutaneous soln (Hizentra) ergocalciferol (vitamin D2) 1,250 1,250 mcg PO Q7D #12 caps 09/27/24 11/15/24 Rx mcg (50,000 unit) capsule teriparatide 20 mcg/dose (600 20 mcg (0.08 mL) subcut DAILY #2.4 10/10/24 11/15/24 Rx mcg/2.4 mL) subcutaneous pen mL injector amoxicillin 875 mg-potassium 1 tab PO Q12H 11/15/24 11/15/24 History clavulanate 125 mg tablet prednisone 20 mg tablet 20 mg PO DAILY 11/15/24 11/15/24 History sulfamethoxazole 800 1 tab PO 3XWK 11/15/24 11/15/24 History mg-trimethoprim 160 mg tablet (Bactrim DS) Past Med/Surg History Problem List (Updated 11/15/24 @ 16:41 by Darshan Lozoya MD) Acute respiratory failure with hypercapnia Current chronic use of systemic steroids Left sided abdominal pain Respiratory failure with hypercapnia Microcytic anemia Hypomagnesemia (Acute) Respiratory syncytial virus (RSV) (Acute) Dyspnea (Acute) Osteoporosis Thoracic back pain Pulmonary hypertension (HFpEF) heart failure with preserved ejection fraction Generalized weakness DVT (deep venous thrombosis) (06/07/13) 2007 ? 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 Owens Sleep apnea cpap Good syndrome Heart palpitations (Chronic) Anxiety (Chronic) Medical History (Updated 11/15/24 @ 16:41 by Darshan Lozoya MD) Overactive bladder GERD (gastroesophageal reflux disease) Hypothyroidism Low iron iron infusion 10/2023 ? Pulmonary emboli 2007 ? reason (on coumadin for short time) Myasthenia gravis CHF (congestive heart failure) Atrial fibrillation followed by Dr. Owens>holter monitor device on presently>to be worn until 11/27/23 Sleep apnea cpap Degenerative disc disease Surgical History History of cataract surgery rt/left History of thymectomy History of total hysterectomy with bilateral salpingo-oophorectomy (BSO) History of bilateral tubal ligation History of total right hip replacement History of colonoscopy with polypectomy History of esophagogastroduodenoscopy (EGD) History of cholecystectomy History of tooth extraction History of cardiac cath ? 10+yrs ago @ [facility] [place]--no stents Family History (Updated 12/06/23 @ 15:21 by Migdalia Gunter) Brother Family history of diabetes mellitus Brother Family history of diabetes mellitus Mother Stroke Heart disease Father Leukemia Other Diabetes No family history of adverse response to anesthesia No family history of bleeding disorder Denies family history of Lung disease Asthma Social History (Updated 12/06/23 @ 15:22 by Migdalia Gunter) Smoking Status: Never smoker Second Hand Exposure: No; Do You Dip or Chew Tobacco: No; Hx Alcohol Use: No Hx Substance Use: No Preferred Language: Ukrainian Communication Ability: Effective Visual Impairment: No Limitations Hearing Ability: Normal Community Planner Required: No Beliefs That Will Affect Care: None marital status: Current Living Situation: Family Current Living Situation Comment: with son current occupational status: retired Feels Safe at Home: Yes Assistive Devices: CPAP and Glasses Review of Systems Review of Systems: All systems reviewed & are unremarkable except as noted in HPI & below Physical Exam Constitutional: WD/WN, vitals as above Eyes: PERRL, conjunctivae normal, anicteric sclerae Respiratory: + labored breathing and + uses accessory muscles Auscultation: + rhonchi (Bilaterally); no wheezes Cardiovascular: Rate/Rhythm: regular rate and regular rhythm Heart Sounds: no murmur Extremities: normal capillary refill and + pedal edema (1+ bilateral equal); no calf tenderness Gastrointestinal (Abdomen): Inspection/Auscultation: abdomen normal to inspection; abdomen not distended Percussion/Palpation: + abdomen tender (Left-sided) and abdomen soft; no guarding and abdomen not rigid Musculoskeletal: no cyanosis or clubbing, extremities motor strength 5/5 Skin: no rashes, warm and dry Neurologic: moves all extremities and awake; no focal motor deficits and not confused Psychiatric: A+Ox3, euthymic affect Genitourinary: + CVA tenderness (Left-sided) Results & Data Results & Data Vital Signs (Past 12 Hours) Vital Signs Temp Pulse Pulse Resp BP BP Pulse Ox 11/15/24 11:06 82 24 159/92 H 100 11/15/24 09:55 96 H 28 H 99 11/15/24 09:55 96 H 28 H 99 11/15/24 09:30 102 H 26 H 127/71 100 11/15/24 09:28 99 H 11/15/24 09:09 35.9 C L 119 H 24 163/72 H 95 11/15/24 09:06 102 H 26 H 127/71 100 O2 Del Method O2 Flow Rate FiO2 11/15/24 11:06 BiPAP 11/15/24 09:55 40 11/15/24 09:55 BiPAP 40 11/15/24 09:30 11/15/24 09:28 11/15/24 09:09 Nasal Cannula 5 11/15/24 09:06 BiPAP Laboratory Results Abnormal lab results 11/15/24 11/15/24 Range/Units 09:36 Unknown WBC 10.81 H (4.8-10.8) K/ul RBC 3.70 L (4.20-5.40) M/uL Hgb 8.5 L (12.0-16.0) g/dl Hct 29.2 L (37.0-47.0) % MCV 78.9 L (80.0-100.0) fL MCH 23.0 L (25.0-34.0) pg MCHC 29.1 L (32.0-36.0) g/dL RDW Std Deviation 52.3 H (36.4-46.3) fL RDW Coeff of [place] 18.2 H (11.5-14.5) % Neut # (Auto) 9.71 H (1.40-6.50) K/uL Lymph # (Auto) 0.34 L (1.20-3.40) K/uL BUN 28 H (6-23) mg/dl BUN/Creatinine Ratio 26.9 H (10-20) Glucose 104 H (70-99(Fasting)) mg/dl Magnesium 1.4 L (1.7-2.4) mg/dl Troponin I High Sens 16.5 H (0-14) pg/ml B-Natriuretic Peptide 145 H (0-100) pg/ml TSH 0.198 L (0.300-4.500) uIu/ml RSV (PCR) DETECTED A (NotDetected) Diagnostic Findings XR chest 1V portable CLINICAL HISTORY: sob COMPARISON STUDY: 04/18/2024 FINDINGS: Stable CABG. Stable cardiomegaly without pulmonary vascular congestion. Stable elevation of the right hemidiaphragm. Stable hazy opacity at the left base and stable stranding opacity at the right upper lung. No pneumothorax. IMPRESSION: Stable exam. Medications Administered ER Medications Given: Duoneb 3ml NEB Acetaminophen 1000g IV Lidocaine 5% patch Magnesium sulfate 1g IV Solu-medrol 40mg IV ECG Rate (beats per minute): 86 Rhythm: normal sinus Findings: + PAC Comparison ECG Date: from (August 26, 2024) Change: the following changes noted (PACs now present) Code Status & VTE Plan Code Status DNR/DNI VTE Prophylaxis Plan VTE Prophylaxis will be ordered: Yes PG Care Time/CCT Total # of Minutes Spent Total Time Spent with Patient: Total time spent is greater than 50% in coordination of care (as documented) at patient's floor/unit and/or counseling patient: Coding Level of Care Code 70160 INT INP/OBS CARE 3/75MIN Diagnoses Respiratory syncytial virus (RSV) B33.8 Acute respiratory failure with hypercapnia J96.02 Myasthenia gravis G70.00 (HFpEF) heart failure with preserved ejection fraction I50.30 Hypomagnesemia E83.42 Microcytic anemia D50.9 CARRIE on CPAP G47.33; Z99.89 Restrictive lung disease J98.4 Atrial fibrillation I48.91 Left sided abdominal pain R10.9 Current chronic use of systemic steroids Z79.52
[2024-11-15 13:16] LABS: Base Excess VBG 5.6 mEq/L; HCO3 VBG 33 mmol/L; Oxygen Saturation VBG < 60.0 %; PCO2 VBG 58 mmHg (38-50); PO2 VBG 26 mmHg; pH VBG 7.36 (7.36-7.41)
[2024-11-15] MEDS: OPTIRAY 320 100ml IV ONE (13:20)
[2024-11-15 13:33] LABS: Ferritin 39.4 ng/ml (8-388)
--- OUTSIDE RECORDS SUMMARY | 2024-11-15 13:35 | External Medical Summary | Continuity of Care Document ---
Author Name Unknown Organization [facility] [address] [place] [phone] Care Team Providers Care Accounting Auditor Name Role Phone Deng Lezama Primary Care Physician [phone] Encounter [facility] [id number] Date(s): 11/08/24 - 11/08/24 [facility] [address] [facility] [address] [address] [phone] Encounter Diagnosis Hypoxia(Discharge Diagnosis) - 12/28/23 Pulmonary fibrosis(Discharge Diagnosis) - 11/08/24 Myasthenia gravis(Discharge Diagnosis) - 11/08/24 Acute URI(Discharge Diagnosis) - 11/08/24 Compression fracture of spine(Discharge Diagnosis) - 11/08/24 Current chronic use of systemic steroids(Discharge Diagnosis) - 11/08/24 Discharge Disposition: Home or Self Care Attending Physician: DO Lezama Franklin J Allergies, Adverse Reactions, Alerts Substance Criticality Severity Reaction Reaction Severity Status Darvon muscle tension Activ e Vascepa Unable to assess criticality Moderate Weakness Active statins weakness Active Assessment and Plan Extracted from: Title:General Exam * Author:DO Lezama Franklin J Date:11/08/24 Impression and Plan Diagnosis Acute URI (NZY72-XL J06.9, Discharge, Medical). Compression fracture of spine (CTS23-TK M48.50XA, Discharge, Medical). Current chronic use of systemic steroids (REU48-RT Z79.52, Discharge, Medical). Hypoxia (QXB78-AN R09.02, Discharge, Medical). Myasthenia gravis (KAD93-XP G70.00, Discharge, Medical). Pulmonary fibrosis (IMQ30-JD J84.10, Discharge, Medical). Plan: Myasthenia gravis Pulmonary fibrosis Considerable decline since I saw her last, now oxygen dependent, prednisone dependent Hypoxia with activity, despite oxygen Pulmonary notes reviewed; follow-up as scheduled Continue prednisone and Bactrim 3 days/week for prophylaxis Had a long discussion with the patient with regards to her functional capacity/ADLs and her wishes to remain living at home She is on a waiting list for [facility] Whe[facility] Recommended she contacts [facility] I will complete MA-51 if required FMLA form completed for the patient's daughter today Upper respiratory infection Could be viral, but yesterday with her fragile pulmonary state, start doxycycline 100 mg twice daily Paroxysmal atrial fibrillation She is in normal sinus today CARRIE on CPAP Using CPAP nightly with benefit Compression fracture, thoracic spine, multiple levels Orthopedic note reviewed Referred to physical therapy, but logistically difficult for her Recommend home physical therapy Additionally, due to her chronic medical conditions, recommend home occupational therapy assessment and treatment. Orders [facility] Pharmacy: doxycycline hyclate 100 mg oral capsule (Prescribe): 1 cap, PO, bid, for 7 day, 14 cap, 0 Refill(s) Evaluation and Management: [id number] Outpatient Visit Est Lvl 5 (Order): 11/08/2024 16:02 EST, [facility]ILY [facility], Pulmonary fibrosis | Myasthenia gravis | Acute URI | Compression fracture of spine. PowerOrders Consults: Home Nursing Communication Request (Order): Routine, Requested Timeframe First Available, PT/OY, [facility] Home Nursing PT/OT Physical Therapy Consult Request (Order): First Available, 11/08/2024 16:03 EST, Evaluate and Treat Occupational Therapy Consult Request (Order): First Available, 11/08/2024 16:03 EST, Evaluate and Treat, Home Therapy. Immunizations Given and Recorded Vaccine Date Status Refusal Reason influenza virus vaccine, inactivated 07/28/23 Low rded influenza virus vaccine, inactivated 06/28/20 Low rded influenza virus vaccine, inactivated 06/28/19 Give n influenza virus vaccine, inactivated 08/09/18 Low rded influenza virus vaccine, inactivated 06/16/17 Give n influenza virus vaccine, inactivated 07/09/16 Give n influenza virus vaccine, inactivated 07/15/15 Give n influenza virus vaccine, inactivated 07/04/14 Give n influenza virus vaccine, inactivated 1 06/14/13 Re corded influenza virus vaccine, inactivated 06/21/12 Give n influenza virus vaccine, inactivated 2 07/22/10 Re corded influenza virus vaccine, inactivated 3 06/21/09 Re corded influenza virus vaccine, inactivated 4 07/13/08 Re corded SARS-CoV-2 (COVID-19) mRNA-vacc - [id number] 5 07/21/23 Recorded zoster vaccine, inactivated 6 08/12/22 Recorded zoster vaccine, inactivated 7 06/01/22 Recorded SARS-CoV-2 mRNA-1273 (6y+ bivalent) 8 06/26/22 Rec orded SARS-CoV-2 (COVID-19) mRNA-1273 vaccine 9 01/01/22 Recorded SARS-CoV-2 (COVID-19) mRNA-1273 vaccine 10 06/28/21 Recorded SARS-CoV-2 (COVID-19) mRNA-1273 vaccine 11/13/20 R ecorded pneumococcal 13-valent vaccine 11/28/16 Given influenza virus vaccine, H1N1 11 08/30/09 Recorded influenza virus vaccine, H1N1 12 08/12/09 Recorded pneumococcal 23-valent vaccine 13 05/14/08 Recorde d tetanus/diphtheria/pertuss, acel (Tdap) 14 04/03/08 Recorded 1Result Comment: 2018-08-31: Historical information-source unspecified 2Result Comment: 2018-08-31: Historical information-source unspecified 3Result Comment: 2018-08-31: Historical information-source unspecified 4Result Comment: 2018-08-31: Historical information-source unspecified 5Result Comment: 2023-09-30: Historical information-source unspecified 6Result Comment: 2023-09-30: Historical information-source unspecified 7Result Comment: 2023-09-30: Historical information-source unspecified 8Result Comment: 2023-09-30: Historical information-source unspecified 9Result Comment: 2023-09-30: Historical information-source unspecified 10Result Comment: 2023-09-30: Historical information-source unspecified 11Result Comment: 2023-09-30: Historical information-source unspecified 12Result Comment: 2023-09-30: Historical information-source unspecified 13Result Comment: 2018-08-31: Historical information-source unspecified 14Result Comment: 2018-08-31: Historical information-source unspecified Medications atenolol 25 mg oral tablet Start: 06/02/24 9:52:00 AM EDT, See Instructions, Disp# 90 tab, Refills: 3, TAKE 1/2 TABLET BY MOUTHTWICE DAILY, Pharmacy: [facility] Start Date: 06/02/24 Status: Ordered BD 1 mL Insulin Syringe 25G x 1" Start: 03/02/18 4:08:00 PM EDT, See Instructions, Disp# 12 syringe, Refills: 3, One IM injection into upper leg. Use as directed, Pharmacy: [facility] - INDIRA Lee Start Date: 03/02/18 Status: Ordered BD needle regular 25G x 1" Start: 05/29/15 8:20:37 AM EDT, See Instructions, Disp# 12 unit, Refills: 0, Dispense 12 needeles Start Date: 05/29/15 Status: Ordered calcium citrate Start: 10/13/24 3:48:00 PM EST, 600 mg =, PO, Daily Start Date: 10/13/24 Status: Ordered colestipol 1 g oral tablet Start: 10/03/24 7:14:00 PM EST, See Instructions, Disp# 120 tab, Refills: 11, TAKE TWO TABLETS BY MOUTH TWICE DAILY, Pharmacy: [facility] Start Date: 10/03/24 Status: Ordered colestipol 1 g oral tablet Start: 10/03/24 7:14:00 PM EST, See Instructions, Disp# 120 tab, Refills: 11, TAKE TWO TABLETS BY MOUTH TWICE DAILY, Pharmacy: [facility] Start Date: 10/03/24 Status: Ordered doxycycline hyclate 100 mg oral capsule Start: 11/08/24 4:02:00 PM EST, 1 cap, PO, bid, Disp# 14 cap, Refills: 0, Pharmacy: [facility] Start Date: 11/08/24 Stop Date: 11/15/24 Status: Ordered Eliquis 5 mg oral tablet Start: 12/23/23 10:05:00 AM EDT, 1 tab, PO, bid, Disp# 180 tab, Refills: 3, Pharmacy: [facility] Start Date: 12/23/23 Status: Ordered Entresto 24 mg-26 mg oral tablet Start: 01/14/24 4:09:00 PM EDT, 1 tab, PO, bid, Disp# 180 tab, Refills: 3, Note to Pharmacy: please fill HADLEY pt out of meds, Pharmacy: [facility] Start Date: 01/14/24 Status: Ordered Epi Pen Start: 12/17/20 1:00:00 PM EST, Epi Pen Start Date: 12/17/20 Status: Ordered furosemide 40 mg oral tablet Start: 10/23/24 10:55:00 AM EST, 1.5 tab, PO, Daily, Disp# 160 tab, Refills: 3, Pharmacy: [facility] Start Date: 10/23/24 Status: Ordered Hizentra 20% subcutaneous solution Start: 09/29/19 2:59:00 PM EST, 100 mg/kg =, subQ, q7days Start Date: 09/29/19 Status: Ordered Imuran 50 mg oral tablet Start: 03/14/20 10:19:00 AM EDT, 1 tab, PO, bid Start Date: 03/14/20 Status: Ordered levothyroxine Start: 05/26/18 10:03:00 AM EDT, 200 mcg =, Daily Start Date: 05/26/18 Status: Ordered lidocaine topical 5% patch Start: 04/18/24 4:42:00 PM EDT, 1 patch, topical, Daily, Disp# 30 patch, Refills: 1, Pharmacy: [facility] Start Date: 04/18/24 Status: Ordered Lidocaine-Hydrocortisone Start: 12/23/23 3:15:00 PM EDT, Lidocaine-Hydrocortisone, eRx Product Type: Compound, See Instructions, Disp# 14 supp, Refills: 1, 1 suppository RI qhs for 14 days, Note to Pharmacy: 25mg of Lidocaine; 25mg of hydrocortisone. Please call patient when med ready [phone], Pharmacy [facility] Start Date: 12/23/23 Status: Ordered Mestinon Start: 06/18/22 9:56:00 AM EDT, 180 mg =, PO, qhs Start Date: 06/18/22 Status: Ordered Mestinon 60 mg oral tablet Start: 09/17/20 2:47:00 PM EST, 1 tab, PO, qid Start Date: 09/17/20 Status: Ordered Neurontin 300 mg oral capsule Start: 03/23/17 2:55:00 PM EDT, 1 cap, PO, qhs, Disp# 90 cap, Refills: 3, other Start Date: 03/23/17 Stop Date: 03/18/18 Status: Ordered omeprazole 40 mg oral delayed release capsule Start: 11/15/23 10:20:00 AM EST, 1 cap, PO, qAM, Disp# 90 cap, Refills: 3, Pharmacy: [facility] Start Date: 11/15/23 Status: Ordered oxyCODONE 5 mg oral tablet Start: 08/31/24 3:23:00 PM EST, 1 tab, PO, q8h, Disp# 10 tab, Refills: 0, PRN: as needed for pain, Pharmacy: [facility] Start Date: 08/31/24 Status: Ordered predniSONE 10 mg oral tablet Start: 09/05/21 10:27:00 AM EST, See Instructions, 30 mg PO Daily Start Date: 09/05/21 Status: Ordered sertraline 100 mg oral tablet Start: 05/02/24 12:28:00 PM EDT, 1 tab, PO, Daily, Disp# 90 tab, Refills: 3, Pharmacy: [facility] Start Date: 05/02/24 Status: Ordered spironolactone 25 mg oral tablet Start: 09/26/24 1:38:00 PM EST, 0.5 tab, PO, Daily, Disp# 45 tab, Refills: 3, Pharmacy: [facility] Start Date: 09/26/24 Status: Ordered sulfamethoxazole-trimethoprim 800 mg-160 mg oral tablet Start: 05/19/24 2:10:00 PM EDT, trimethoprim, See Instructions, 1 tab PO Daily, wednesday, wed, wednesday. Start Date: 05/19/24 Status: Ordered Vitamin B12 1000 mcg/mL injectable solution Start: 05/29/15 8:21:00 AM EDT, 1,000 mcg =, subQ, qmonth (30 days), Disp# 30 mL Start Date: 05/29/15 Status: Ordered Vitamin D2 1.25 mg (50,000 intl units) oral capsule ONE tab BY MOUTH WEEKLY FOR 12 WEEKS. Complete blood work AFTER finishing prescription] Start Date: 10/13/24 Status: Ordered Mental Status 11/08/24 Barriers to Learning one year None evide nt Mandatory Health Literacy Documentation Yes Health Literacy Communication Barriers N ever Primary Language Bolivian Problem List Condition Confirmation Course Effective Dates Status H ealth Status Informant Neuropathy Confirmed Active Avascular necrosis of bone of hip Confirmed Active Chronic renal impairment Confirmed Active Diastolic CHF Confirmed Active Current chronic use of systemic steroids Confirmed Active Pulmonary fibrosis Confirmed Active Hypothyroid Confirmed Active Hypoxia Confirmed Active 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 Myalgia Confirmed Active MYASTHENIA GRAVIS Confirmed 12/29/10 Active Sleep apnea Confirmed Active Paroxysmal atrial fibrillation Confirmed Active 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, thoracic region Confirmed Active Urinary incontinence Confirmed Active Vitamin B12 deficiency Confirmed Active Diagnosis Diagnosis Type Effective Dates Health Status Clinical Service Informant Current chronic use of systemic steroids Discharge Diagnosis 11/08/24 Non-Specified Pulmonary fibrosis Discharge Diagnosis 11/08/24 Non-Specified Compression fracture of spine Discharge Diagnosis 11/08/24 Non-Specified Myasthenia gravis Discharge Diagnosis 11/08/24 Non-Specified Acute URI Discharge Diagnosis 11/08/24 Non-Specified Hypoxia Discharge Diagnosis 12/28/23 Non-Specified Procedures Procedure Date Related Diagnosis Body Site Status EGD - esophagogastroduodenoscopy 1 11/24/23 Completed Chest x-ray 2 01/26/23 Completed Mammogram 3 10/20/21 Completed CXR - Chest X-ray 4 09/08/21 Compl eted Mammogram 5 10/17/20 Completed US abdominal scan 6 08/23/20 Compl eted Upper GI endoscopy 7, 8, 9 10/20/19 Completed Mammogram 10 05/18/[address] of lumbar spine w/o contrast 11 01/11/[address] of thoracic spine w/o IV contrast 12 01/11/19 Completed Ultrasound of kidney 13 01/11/19 C ompleted X-ray of abdomen 14 02/21/18 Compl eted DEXA - Dual energy X-ray poncho ton absorptiometry 15 11/11/17 Completed Mammogram 16, 17 11/11/17 Complete d Colonoscopy 18, 19 02/04/[address] of abdomen and pelvis 20 12/30/16 Completed Chest x-ray 21 12/29/16 Completed Chest x-ray 22 11/28/16 Completed Upper GI endoscopy 23 06/25/16 Com pleted Gastric emptying 24 06/17/[address] of abdomen and pelvis wit h contrast 25 04/21/16 Completed Total hip replacement 2014 Completed Colonoscopy 01/27/14 Completed Holter monitor 11/07/13 Completed Cholecystectomy planned C ompleted cystoscopies x3 Completed Hysterectomy Completed Total thymus Completed 1No endoscopic esphageal abnormality to explain pt's dysphagia. Esophagus dilated. Normal stomach. Normal examined duodenum. Biopsies were taken with a cold forceps for evaluation of eosinophilic esophagitis. 2Impression: 1. Cardiomegaly without acute process 2. Unchanged upper lobe predominant fibrosis 3There is no mammographic evidence of malignancy 4IMPRESSION: 1. No new focal lung consolidations. 2. Scattered upper lobe densities which favor residual scarring/fibrotic change. However, recommendfollow-up nonemergent chest CT for further elevation of the right upper lobe bandlike density and to exclude the possibility of an underlying pulmonary lesion. 5ACR BI RADS Cat 2 Benign 61. Cholecystectomy with likely postsurgical mild common bile duct dilation 2. Hepatic steatosis 7Z-line regular, 38 cm from the incisors Normal esophagus. Normal stomach. Normal second portion of the duodenum. Biopsied. 8path duodenum normal. 9F/U as needed. 10there is no mammographic evidence of malignancy 11Impression: 1. This bulges suggested at L3-4 and to a lesser extent at L2-3 with resultant neural foraminal narrowing. The severity better demonstrted with MRI. 2. No significant osseous degenerative changes. No acute osseous injury. 12Impression: 1. No acute osseous abnormality is identified. 2. There is a large disc herniation at T7-T8 which causes at least moderate central canal stenosis and effaces the ventral cord. This has progressed from the [address] 3. There is advanced disc space narrowing with endplate sclerosis and minimal anterolisthesis at T9-T10. This has also progressed from 2016. 13Normal renal ultrasound. 141. No free air. 2. Single loop of mildly dilated small bowel. A partial small bowel obstruction would be difficult to exclude but is considered unlikely. 3. No acute cardiopulmonary findings. 15(11/11/17) Spine T-score 1.8 Femur T-score 0.0 (04/16/11) Spine T-score 1.9 Femure T-score 0.1 16bilateral digital screening mammogram 17no malignancy. repeat 1 year 18One 7mm polyp in the ascending colon, removed with a cold snar. Resected and retrieved. One 4mm polyp at 70cm proximal to the anus, removed with a cold biopsy forceps. Resected and retrieved. Diverticulosis in the sigmoid colon. The examination was otherwise normal. The rectu, descending colon and ascending colon are normal, biopsed. The distal rectum and anal verge are normal on retroflexion view. 19Pathology results: A) Colon, ascending, polypectomy 1) Benign inflammatory poyp. 2) No invasive carcinoma seen B) Colon, ascending, biopsies 1) Benign colonic mucosa without pathologic change 2) No acute or chronic colitis identified. 3) Negative for dysplasia and malignancy. C) Colon, 70cm, polypec trixie 1) Benign colonic polyp with focal hyperplastic change 2) Negative fro dysplasia and invasive carcinoma D) Colon, descending biopsies: 1) Benign colonic mucosa without pathologic change 2) No acute or chronic colitis identified. 3) Negative for dysplasia and malignancy. E) Rectum, biopsies: 1) Benign colonic-type mucosa wit inreased lamina propria histiocytes suggestive of previous mucosal injury. 2) Noactive colitis identfied. 3) Negative grazyna dysplasia and malignancy 20Mild small bowel ileus versus enteritis. Prior cholecystectomy. 21No acute process. Mild stable cardiomegaly. 22No acute cardiopulmonary findings. No change in appearance of the chest 23Normal esophagus Z-line irregular, 36cm from the incisors Medium-sized hiatus hernia Erythematous mucosa in the gastric body and antrum. Biopsied. Normal examinded duodenum 24Findings are consistent with a normal study 25Evaluation of the lower pelvis slightly limited due to artifact from a right hip prosthesis. No obvious acute intra-abdominal findings are present 2014 Vital Signs Most recent to oldest [Reference Range]: 1 Heart Rate 75 bpm (11/08/24 3:19 PM) Respiratory Rate 18 br/min (11/08/24 3:19 PM) Blood Pressure 138/74mmHg (11/08/24 3:19 PM) Cuff Pulse Pressure 64 mmHg (11/08/24 3:19 PM) Social History Social History Type Response Smoking Status Never smoked cigaret mary grace Sex Female Sex Representation Female (finding) Outpatient Note * DO Lezama Franklin J: PERFORM, MODIFY, SIGN, VERIFY Event Display: .Outpt Note Authored Date: [id number] Patient: JAMIE PEDERSON Age: 74 years Sex: Female : 1950 Associated Diagnoses: None Author: DO Lezama Franklin J Visit Information Visit type: Scheduled follow-up. Chief Complaint 11/08/2024 15:18 EST 6 month f/u. has been coughin and bringing up yellow phlegm. sore throat for a couple weeks. History of Present Illness Jamie is here for a routine exam. Unfortunately, she continues to decline from a functional standpoint, a result myasthenia gravis, pulmonary fibrosis, and congestive heart failure. Marked functional limitations with ADLs. CUrrently living in a double wide in [place] with her son. He will help with household things. She has some daughters who live nearby and will help her too. Can barely walk from room to room; has been on oxygen since February of last year (4 lpm). Even at 4 lpmhas desaturations into the 80s with activity (showering). She is signed up for meals on wheels - and is hoping to get started soon (is on a waiting list now). Typically does have a dry cough, but over the past 2 to 3 days has developed a productive cough with yellow phlegm. She does have an albuterol nebulizer at home but uses it infrequently as she does not notice much improvement when she uses it. She follows with pulmonary medicine of neuropsychology and at [facility]. More recently, she has been seeing sports medicine for thoracic compression fractures. They did gether referred to physical therapy, but actually making into the physical therapy unit itself is logistically difficult and she feels quite weak and that she expends consider energy just getting to physical therapy that when she gets there she is until strong enough to complete. We did talk about getting some home services, including physical therapy for her. She also recently got established with rheumatology Review of Systems Constitutional: Fatigue, Decreased activity. Ear/Nose/Mouth/Throat: Sore throat. Respiratory: Shortness of breath, Cough, Sputum production, Wheezing. Cardiovascular: Peripheral edema. Gastrointestinal: Negative. Neurologic: Alert and oriented X4. Health Status Allergies: Allergic Reactions (Selected) Moderate Vascepa- Weakness. Severity Not Documented Darvon- Muscle tension. Statins- Weakness.. Current medications: (Selected) Prescriptions Prescribed BD 1 mL Insulin Syringe 25G x 1": See Instructions, One IM injection into upper leg. Use as directed, 12 syringe, 3 Refill(s) BD needle regular 25G x 1": See Instructions, Dispense 12 needeles, 12 unit, 0 Refill(s) Eliquis 5 mg oral tablet: 1 tab, PO, bid, 180 tab, 3 Refill(s) Entresto 24 mg-26 mg oral tablet: 1 tab, PO, bid, 180 tab, 3 Refill(s) Lidocaine-Hydrocortisone: See Instructions, 1 suppository RI qhs for 14 days, 14 supp, 1 Refill(s) Neurontin 300 mg oral capsule: 1 cap, PO, qhs, for 90 day, 90 cap, 3 Refill(s) Vitamin B12 1000 mcg/mL injectable solution: 1,000 mcg, subQ, qmonth (30 days), 30 mL atenolol 25 mg oral tablet: See Instructions, TAKE 1/2 TABLET BY MOUTH TWICE DAILY, 90 tab, 3 Refill(s) colestipol 1 g oral tablet: See Instructions, TAKE TWO TABLETS BY MOUTH TWICE DAILY, 120 tab, 11 Refill(s) colestipol 1 g oral tablet: See Instructions, TAKE TWO TABLETS BY MOUTH TWICE DAILY, 120 tab, 11 Refill(s) furosemide 40 mg oral tablet: 1.5 tab, PO, Daily, 160 tab, 3 Refill(s) lidocaine topical 5% patch: 1 patch, topical, Daily, 30 patch, 1 Refill(s) omeprazole 40 mg oral delayed release capsule: 1 cap, PO, qAM, 90 cap, 3 Refill(s) oxyCODONE 5 mg oral tablet: 1 tab, PO, q8h, PRN: as needed for pain, 10 tab, 0 Refill(s) sertraline 100 mg oral tablet: 1 tab, PO, Daily, 90 tab, 3 Refill(s) spironolactone 25 mg oral tablet: 0.5 tab, PO, Daily, 45 tab, 3 Refill(s) Documented Medications Documented Epi Pen: Hizentra 20% subcutaneous solution: 100 mg/kg, subQ, q7days Imuran 50 mg oral tablet: 1 tab, PO, bid Mestinon 60 mg oral tablet: 1 tab, PO, qid Mestinon: 180 mg, PO, qhs Vitamin D2 1.25 mg (50,000 intl units) oral capsule: ONE tab BY MOUTH WEEKLY FOR 12 WEEKS. Completeblood work AFTER finishing prescription] calcium citrate: 600 mg, PO, Daily levothyroxine: 200 mcg, Daily predniSONE 10 mg oral tablet: See Instructions, 30 mg PO Daily sulfamethoxazole-trimethoprim 800 mg-160 mg oral tablet: See Instructions, 1 tab PO Daily, wednesday, wed, wednesday.. Problem list: Medical Current chronic use of systemic steroids / SNOMED CT 6968863305 / Confirmed Immunoglobulin G deficiency / SNOMED CT 9245295373 / Confirmed Immunoglobulin A deficiency / SNOMED CT 90718871 / Confirmed Selective immunoglobulin M deficiency / SNOMED CT 816387169 / Confirmed Hypoxia / SNOMED CT 6124239492 / Confirmed MYASTHENIA GRAVIS / ICD-9-CM 358.0 / Confirmed MIXED HYPERLIPIDEMIA / ICD-9-CM 272.2 / Rule out GERD / ICD-9-CM 530.81 / Rule out ARTHRITIS / ICD-9-CM 716.8 / Rule out IATROGENIC PULMONARY EMBOLISM AND INFARCTION / ICD-9-CM 415.11 / Rule out Vitamin B12 deficiency / ICD-9-CM 266.2 / Confirmed Spondylolisthesis, thoracic region / SNOMED CT 314417308 / Confirmed Paroxysmal atrial fibrillation / SNOMED CT 616823294 / Confirmed Sleep apnea / SNOMED CT 109286443 / Confirmed Post-COVID chronic dyspnea / SNOMED CT 1049597477 / Confirmed Diastolic CHF / SNOMED CT 3296466016 / Confirmed Pulmonary fibrosis / SNOMED CT 38577078 / Confirmed Myalgia / SNOMED CT 703994782 / Confirmed Avascular necrosis of bone of hip / SNOMED CT 142254402 / Confirmed Urinary incontinence / SNOMED CT 4088855713 / Confirmed Neuropathy / SNOMED CT 853063789 / Confirmed Chronic renal impairment / SNOMED CT 647949244 / Confirmed Hypothyroid / SNOMED CT 37346543 / Confirmed All Problems Current chronic use of systemic steroids / SNOMED CT 4692029844 / Confirmed Immunoglobulin G deficiency / SNOMED CT 7552981971 / Confirmed Immunoglobulin A deficiency / SNOMED CT 45691027 / Confirmed Selective immunoglobulin M deficiency / SNOMED CT 821697611 / Confirmed Hypoxia / SNOMED CT 3189109742 / Confirmed MYASTHENIA GRAVIS / ICD-9-CM 358.0 / Confirmed MIXED HYPERLIPIDEMIA / ICD-9-CM 272.2 / Rule out GERD / ICD-9-CM 530.81 / Rule out ARTHRITIS / ICD-9-CM 716.8 / Rule out IATROGENIC PULMONARY EMBOLISM AND INFARCTION / ICD-9-CM 415.11 / Rule out Vitamin B12 deficiency / ICD-9-CM 266.2 / Confirmed Spondylolisthesis, thoracic region / SNOMED CT 043733816 / Confirmed Paroxysmal atrial fibrillation / SNOMED CT 202136569 / Confirmed Sleep apnea / SNOMED CT 467409921 / Confirmed Post-COVID chronic dyspnea / SNOMED CT 6344501254 / Confirmed Diastolic CHF / SNOMED CT 4655591387 / Confirmed Pulmonary fibrosis / SNOMED CT 21057487 / Confirmed Myalgia / SNOMED CT 736308706 / Confirmed Avascular necrosis of bone of hip / SNOMED CT 547959294 / Confirmed Urinary incontinence / SNOMED CT 3317353320 / Confirmed Neuropathy / SNOMED CT 364146207 / Confirmed Chronic renal impairment / SNOMED CT 609451653 / Confirmed Hypothyroid / SNOMED CT 72281761 / Confirmed. Histories Family History: Lymphoma Father Skin cancer Father High Blood Pressure Mother Heart disease Mother Kidney disease Mother . Social History Social & Psychosocial Habits Alcohol 09/26/2012 Risk Assessment: Denies Alcohol Use Tobacco 09/26/2012 Risk Assessment: Denies Tobacco Use 12/28/2014 Use: Never smoker . Physical Examination Vital Signs 11/08/2024 15:19 EST Heart Rate 75 bpm Respiratory Rate 18 br/min Systolic Blood Pressure 138 mmHg Diastolic Blood Pressure 74 mmHg Cuff Pulse Pressure 64 mmHg SpO2 98 % Measurements from flowsheet : Measurements 11/08/2024 15:19 EST Height/Weight Refused Patient Refused Height, Patient Refused Weight General: Alert and oriented, No acute distress, Seated in wheelchair. HENT: Normocephalic, Normal hearing, Oral mucosa is moist. Neck: Supple, Non-tender, No lymphadenopathy, No thyromegaly. Respiratory: Coarse breath sounds bilaterally, crackles throughout, expiratory wheezes. Cardiovascular: Normal rate, Regular rhythm. Integumentary: Warm, Dry, [place]. Neurologic: Alert, Oriented, Normal sensory. Cognition and Speech: Oriented, Speech clear and coherent. Psychiatric: Cooperative, Appropriate mood & affect. Health Maintenance Health Maintenance Pending (in the next year) OverDue Adult Influenza Vaccine due 04/10/24 and every 1 year Due Breast Cancer Screening due 10/21/24 and every 731 day Adult COVID-19 Vaccination due 11/08/24 Unknown Frequency Adult Social Determinants of Health Screening due 11/08/24 Unknown Frequency Adult Tdap/Td Vaccine due 11/08/24 Unknown Frequency Hepatitis C Screening due 11/08/24 One-time only Lipid Screening due 11/08/24 Unknown Frequency Medicare Annual Wellness Visit due 11/08/24 and every 1 year Pneumococcal Vaccine Older Adults due 11/08/24 One-time only Due In Future Body Mass Index not due until 08/16/25 and every 366 day Satisfied (in the past 1 year) Satisfied Body Mass Index on 11/15/23. Satisfied by PAMELA Robertson Courtney D Impression and Plan Diagnosis Acute URI (JFN67-UG J06.9, Discharge, Medical). Compression fracture of spine (KOA47-HU M48.50XA, Discharge, Medical). Current chronic use of systemic steroids (KTT15-OM Z79.52, Discharge, Medical). Hypoxia (WCD92-PI R09.02, Discharge, Medical). Myasthenia gravis (VEB72-GJ G70.00, Discharge, Medical). Pulmonary fibrosis (IGJ37-MT J84.10, Discharge, Medical). Plan: Myasthenia gravis Pulmonary fibrosis Considerable decline since I saw her last, now oxygen dependent, prednisone dependent Hypoxia with activity, despite oxygen Pulmonary notes reviewed; follow-up as scheduled Continue prednisone and Bactrim 3 days/week for prophylaxis Had a long discussion with the patient with regards to her functional capacity/ADLs and her wishes to remain living at home She is on a waiting list for [facility] Recommended she contacts [facility] I will complete MA-51 if required FMLA form completed for the patient's daughter today Upper respiratory infection Could be viral, but yesterday with her fragile pulmonary state, start doxycycline 100 mg twice daily Paroxysmal atrial fibrillation She is in normal sinus today CARRIE on CPAP Using CPAP nightly with benefit Compression fracture, thoracic spine, multiple levels Orthopedic note reviewed Referred to physical therapy, but logistically difficult for her Recommend home physical therapy Additionally, due to her chronic medical conditions, recommend home occupational therapy assessmentand treatment. Orders Power[facility]ders Pharmacy: doxycycline hyclate 100 mg oral capsule (Prescribe): 1 cap, PO, bid, for 7 day, 14 cap, 0 Refill(s) Evaluation and Management: [id number] Outpatient Visit [address] [facility] 5 (Order): 11/08/2024 16:02 EST, FAMILY MEDICINE, Pulmonary fibrosis | Myasthenia gravis | Acute URI | Compression fracture of spine. PowerOrders Consults: Home Nursing Communication Request (Order): Routine, Requested Timeframe First Available, PT/OY, [facility] Home Nursing PT/OT Physical Therapy Consult Request (Order): First Available, 11/08/2024 16:03 EST, Evaluate and Treat Occupational Therapy Consult Request (Order): First Available, 11/08/2024 16:03 EST, Evaluate and Treat, Home Therapy. Professional Services [id number], including completion of requested paperwork: 40 minutes Documentation and orders: 5 minutes Electronic Signature on File Electronically Reviewed/Signed by: Deng Lezama DO Author Signature Dt/Tm:11/08/2024 05:00 PM Department of Family Medicine [facility] Patient Care team information Care Team Personnel Name: DO Lezama Franklin J Position: Physician - Family Med Member Role: Primary Care Provider Address: [address] [place] [address] Care Team Related Persons Name: HOLLI COTO Name: TATIANA PEDERSON
--- OUTSIDE RECORDS SUMMARY | 2024-11-15 13:35 | External Medical Summary | Continuity of Care Document ---
Author Name Unknown Organization [facility] [address] [id number] Address [address] [place] [id number] Care Team Providers Care Bicycle Inspector Name Role Phone Deng Lezama Primary Care Physician [phone] [id number] Date(s): 10/13/24 - 10/13/24 [facility] [place] [address] [id number] [facility] [address] [place] [id number] Encounter Diagnosis Thoracic radiculopathy(Discharge Diagnosis) - 10/13/24 Discharge Disposition: Home or Self Care Attending Physician: DO Trevino Jina Allergies, Adverse Reactions, Alerts Substance Criticality Severity Reaction Reaction Severity Status Darvon muscle tension Activ e Vascepa Unable to assess criticality Moderate Weakness Active statins weakness Active Assessment and Plan Extracted from: Title:Follow Up Visit, thoracic radiculopathy Au thor:DO Trevino Jina Date:10/13/24 ASSESSMENT: 1.Bilateral L>R that radiates to the left side across her ribs to the axillary region( in the settingof known myasthenia Gravis, pulmonary fibrosis and heart failure) Likely Vertebral Compression Fracture seen on diagnostic imaging ( mild compression deformities of the T5-A7orsmndoel bodies on CT 04/2024 and 08/2024)( and seen on new MRI) Likely Thoracic Radiculopathy givenradicular complaints, pain with flexion Likely Myofascial Pain givenpain reproduced with muscular stretch Likely concomitant Discogenic Pain givenreproduction of pain with forward bending. Possiblyconcomitant Facet-mediated Pain giventenderness over facet joints,patient reportingpain withexcessive extension,facet arthropathy seen on x-ray. PLAN: Diagnostics: None at this time Her Dexa scan is also pending at this time Injections: None at this time _patient is chronically on oral steroids. Steroid injections would not be a good option at this time. _ _ Medications: None at this time _ Modalities: Continue use of heating pad PRN. Advised patient not to sleep on heating pad Orthotics:/DME None at this time Therapeutic exercise: PT prescription written Consults: She is established with ortho spine at [facility] She is seeing rheum for osteoporosis, rheum says she is candidate for anabolic therapies for osteoporosis She is established with pulmonology at [facility], [place], has follow up soon She sees neurology for MG and recently has an appointment Education: A lengthy discussion was held with the patient regarding their diagnosis andprognosis. We discussed workup and treatment strategies including physical therapy, pharmacologic management, injections, and surgery The patient s questions were sought and answered satisfactorily. Other: Reviewed prior notes fromPCP,and rheumatology and reviewed recent labs Follow-up visit: Scheduled for:follow up to coincide with completion of, PT Advised patient to seek urgent medical attention if they develop new onset progressive weakness and/or bowel/bladder dysfunction Kerry Trevino, DO Sports Medicine and Interventional Spine Physical Medicine & Rehabilitation Total time on the date of the encounter which includes both the yucy-zt-kfze and gqg-urho-ed-face time personally spent by the physician and/or other qualified health healthcare administration internship(s) on the day of the encounter consisting of a total of30 minutes (F/U -level 4)including Medical Decision Making, preparing to see the patient (eg, review of tests), obtaining and/or reviewing separately obtained history, performing a medically appropriate examination and/or evaluation, counseling and educating the patient/family/caregiver,ordering medications, tests, or procedures,referring and communicating with other health critical care transport nurse, documenting clinical information in the electronic or other health record, independently interpreting results (not separately reported) and communicating results to the patient/ family/caregiver, care coordination Immunizations Given and Recorded Vaccine Date Status [...] 07/13/08 Re corded SARS-CoV-2 (COVID-19) mRNA-vacc - [id number] 5 07/21/23 Recorded zoster vaccine, inactivated 6 [...] TAKE 1/2 TABLET BY MOUTHTWICE DAILY, Pharmacy: [facility] Start Date: 06/02/24 Status: Ordered BD 1 mL Insulin Syringe 25G x 1" Start: 03/02/18 4:08:00 PM EDT, See Instructions, Disp# 12 syringe, Refills: 3, One IM injection into upper leg. Use as directed, Pharmacy: [facility] Start Date: 03/02/18 Status: Ordered BD needle [...] TWO TABLETS BY MOUTH TWICE DAILY, Pharmacy: [facility] Start Date: 10/03/24 Status: Ordered colestipol 1 g oral tablet Start: 10/03/24 7:14:00 PM EST, See Instructions, Disp# 120 tab, Refills: 11, TAKE TWO TABLETS BY MOUTH TWICE DAILY, Pharmacy: [facility] Start Date: 10/03/24 Status: Ordered Eliquis 5 mg oral tablet Start: 12/23/23 10:05:00 AM EDT, 1 tab, PO, bid, Disp# 180 tab, Refills: 3, Pharmacy: [facility] Start Date: 12/23/23 Status: Ordered Entresto 24 mg-26 mg oral tablet Start: 01/14/24 4:09:00 PM EDT, 1 tab, PO, bid, Disp# 180 tab, Refills: 3, Note to Pharmacy: please fill [facility]HD[facility] pt out of meds, Pharmacy: [facility] Start Date: 01/14/24 Status: Ordered Epi Pen Start: 12/17/20 1:00:00 PM EST, Epi Pen Start Date: 12/17/20 Status: Ordered furosemide 40 mg oral tablet Start: 05/02/24 4:10:00 PM EDT, See Instructions, Disp# 135 tab, Refills: 3, 1.5 tabs on Mon, Wed, Wed 1 tab dailly the rest of the week, Pharmacy: [facility] Start Date: 05/02/24 Status: Ordered Hizentra 20% subcutaneous solution Start: [...] Daily, Disp# 30 patch, Refills: 1, Pharmacy: [facility] Start Date: 04/18/24 Status: Ordered Lidocaine-Hydrocortisone Start: 12/23/23 3:15:00 PM EDT, Lidocaine-Hydrocortisone, eRx Product Type: Compound, See Instructions, Disp# 14 supp, Refills: 1, 1 suppository VT qhs for 14 days, Note to Pharmacy: 25mg of Lidocaine; 25mg of hydrocortisone. Please call patient when med ready [phone], Pharmacy [facility] Start Date: 12/23/23 Status: Ordered Mestinon Start: [...] qAM, Disp# 90 cap, Refills: 3, Pharmacy: [facility] Start Date: 11/15/23 Status: Ordered oxyCODONE 5 mg oral tablet Start: 08/31/24 3:23:00 PM EST, 1 tab, PO, q8h, Disp# 10 tab, Refills: 0, PRN: as needed for pain, Pharmacy: [facility] Start Date: 08/31/24 Status: Ordered predniSONE 10 mg oral tablet Start: 09/05/21 10:27:00 AM EST, See Instructions, 30 mg PO Daily Start Date: 09/05/21 Status: Ordered sertraline 100 mg oral tablet Start: 05/02/24 12:28:00 PM EDT, 1 tab, PO, Daily, Disp# 90 tab, Refills: 3, Pharmacy: [facility] Start Date: 05/02/24 Status: Ordered spironolactone 25 mg oral tablet Start: 09/26/24 1:38:00 PM EST, 0.5 tab, PO, Daily, Disp# 45 tab, Refills: 3, Pharmacy: [facility] Start Date: 09/26/24 Status: Ordered [...] Start Date: 10/13/24 Status: Ordered Mental Status 10/13/24 Barriers to Learning one year None evide nt Mandatory Health Literacy Documentation Yes Health Literacy Communication Barriers N ever Primary Language Latvian Problem List Condition Confirmation Course Effective Dates [...] Effective Dates Health Status Clinical Service Informant Thoracic radiculopathy Discharge Diagnosis 10/13/24 Non-Specified Procedures Procedure Date Related Diagnosis Body [...] No obvious acute intra-abdominal findings are present 26Octuary 2014 Social History Social History Type Response Smoking Status Never smoked cigaret mary grace Sex Female Sex Representation Female (finding) Ortho Outpt Note * DO Trevino Jina: PERFORM Event Display: Ortho Outpt Note Authored Date: [id number] Primary Care Provider DO Lezama Franklin J Subjective Follow up Interval History Today, patient is here to review thoracic MRIresults which revealed findings below. Pain isin thebilateral midback withL >R andradiates toleft axillaryregion( in the settingof known myasthenia Gravis, pulmonary fibrosis and heart failure) Patient reports no changeof symptomssince last visit. She has seen rheumatology who is helping with her osteoporosis and has started her on vitamin D andCalcium and calcium citrate. She took herself off of Gabapentin as she was taking it for her peripheral neuropathy and did not notice that it was helping. She has not noticed if the radicular pain has increased with being off the gabapentin. The patientis currently takingTylenol 1,000 mgfor pain. Denies new onset of focal weakness or bowel/bladder dysfunction. Denies other changes in medical history since last visit. RECENT PERTINENT STUDIES: Thoracic MRI: Multilevel compression deformities which appear subacute to chronic. Disc disease results in mild canal stenosis and moderate bilateral neural foraminal stenosis Summary from initial eval: Objective Physical Exam General: Alert and oriented.Patient in no apparent distress. Psych: Affect normal and appropriate. HEENT: Head normocephalic and atraumatic. Neck is supple. Chest: Breathing is non-labored. Skin: There are no gross skin lesions. Gait:_patient uses a wheelchair to ambulate outside the home. She ambulates with an antalgic gait and becomes out of breath easily Thoracic Exam Inspection: Skin intact. AROM:Pain-limited ROM, Unable to extend beyond neutralPain with, at end range of flexion, at end range of extension, with ipsilateral oblique extension (facet joint loading)to the left Left side-bending produces, contralateral pain Twisting with her left shoulder forward reproduces her thoracic pain Palpation:Tenderness over, Bilateral, paraspinal muscles/facet jointsbetween T 4 and T9 Neuro: Sensation:Intact throughout bilateral upper limbsand lower limbs Strength:5/5 throughout bilateral upper limbs( of note this testing was done in the setting of known myasthenia Gravis) Strength:5/5 throughoutbilateral lower limbs ( of note this testing was done in the setting of known myasthenia Gravis) DTRs:2+ throughout bilateral lower limbs except for the following:, 3+, Patellar (L2-4), on the left Tests for lumbar radiculopathy: Slump (for radicular symptoms):, Negative Phalen's sign for radicular lumbar spinal stenosis (passive extension for up to 1 minute):negative Long tract signs (UMN signs):Ankle clonus, babinski sign, negative Diagnostic Results Thoracic MRI 09/29/24 The alignment is anatomical. Degenerative changes are noted in the discs and vertebral bodies. Multilevel compression deformities are seen at T5, T6, and T7 without significant underlying edema suggest an acute component. Posterior disc bulges are seen most prominent at T8 with mild canal stenosis and moderate bilateral neural foraminal stenosis. The spinal ligaments are intact, without evidence of disruption or abnormal signal intensity. The spinal cord is normal in signal intensity and there is no evidence of cord contusion. There is no evidence of an extradural, intradural, extramedullary or intramedullary lesion. Visualized soft tissues are normal. IMPRESSION: Multilevel compression deformities which appear subacute to chronic. Disc disease results in mild canal stenosis and moderate bilateral neural foraminal stenosis. XR Ribs 04/2024 IMPRESSION: 1. Cardiomegaly and chronic parenchymal changes as above with no acute cardiopulmonary abnormality identified. 2. There is no radiographic evidence of acute/displaced rib fracture on the bilateral rib series. XR Thoracic spine 04/2024 THORACIC SPINE 3 VIEWS CLINICAL HISTORY: Atraumatic thoracic back pain. FINDINGS: AP, lateral, and swimmer's views of the thoracic spine are compared to study dated 08/31/[address] of the thoracic spine dated 01/11/[address] chest CT dated 10/08/2021. The skeletal structures are osteopenic. There is a mild chronic superior endplate compression deformity of T11. Vertebral body height is otherwise maintained throughout the thoracic spine. Alignment is preserved. Anterior osteophytes are seen throughout. The transverse processes and pedicles are grossly intact as seen on the AP view. There is multilevel degenerative disc space narrowing. Endplate sclerosis is seen at T9-T10. Midline sternotomy wires are noted. There is chronic elevation of the right hemidiaphragm. Cholecystectomy clips are noted in the right upper quadrant. IMPRESSION: 1. No acute bony abnormality is identified. 2. Osteopenia with chronic and degenerative changes as above. CT Chest 04/27/2024 CLINICAL HISTORY: Dyspnea COMPARISON STUDY: Chest CT dated 10/08/2021. Chest x-ray dated 04/18/2024. TECHNIQUE: CT scan of the thorax was performed from the thoracic inlet to the upper abdomen. Images are reviewed in the axial, sagittal, and coronal planes. IV contrast was not administered for this examination as per the referring clinician. A dose lowering technique was utilized adhering to the principles of ALARA. CT DOSE: 734.6 mGy.cm FINDINGS: Thyroid: Imaged portions of the thyroid gland are normal in size and attenuation. Thoracic aorta: The thoracic aorta is normal in caliber and demonstrates standard 3-vessel arch anatomy. Heart: The patient is status post midline sternotomy. The heart is enlarged and without pericardial effusion. The coronary arteries are densely calcified. The pulmonary trunk is dilated, measuring 3.6 cm in diameter. This suggests pulmonary artery hypertension. Lungs and pleural spaces: There is no airspace consolidation typical for pneumonia or pleural effusion. Foci of parenchymal scarring and architectural distortion are again seen throughout both lungs, greatest in the anterior right upper lobe. Mild central bronchiectasis is observed. The trachea and central airways are clear. Mediastinum: There is no mediastinal lymphadenopathy. Theresa: Not well assessed without IV contrast. Axillae: There is no axillary lymphadenopathy. Upper abdomen: There is a small hiatal hernia. Cholecystectomy clips are noted. Skeletal structures: The skeletal structures are osteopenic. Degenerative change and hyperkyphosis is seen in the thoracic spine. No lytic or blastic bony lesions are seen. There is a mild acute to subacute appearing compression fracture of T6. A mild compression deformity of T5 is age indeterminate, but new from 2020. A compression deformity at T11 is chronic. IMPRESSION: 1. Chronic parenchymal changes as detailed above, only modestly worsened as compared to 10/08/2021. 2. No superimposed airspace consolidation or pleural effusion is identified. 3. Cardiomegaly with evidence of pulmonary artery hypertension. 4. There is an acute to subacute appearing compression fracture of T6 with mild loss of height. Correlate for point tenderness. CT Chest 08/2024 EXAMINATION: Chest CT with CLINICAL HISTORY: Right sided back pain, broken rib 4 months ago. No known injury. PRIORS: Chest CT 04/27/2024 TECHNIQUE: Contiguous axial images were obtained through the chest with the use of intravenous contrast. Sagittal and coronal reformations are supplied. FINDINGS: Moderate osseous demineralization noted. Mild compression deformities of T5, T6 and T7 vertebral bodies, age-indeterminate. The prior images do not contain sagittal reformations. No high-grade compression fracture. Moderate to advanced degenerative change of the mid to lower thoracic spine. No acute displaced rib fracture. No pneumothorax. Median sternotomy wires present. Streaky airspace consolidation or opacification present in the right upper lobe, unchanged. Mild hypoventilatory changes at the lung bases, also unchanged. No confluent opacification. Trachea and mainstem bronchi patent. No pleural or pericardial effusion. Heart size is mildly enlarged. Large amount of pericardial fat. Trachea and mainstem bronchi patent. No adenopathy in the chest. Limited visualization of the upper abdomen shows no acute abnormality. IMPRESSION: Moderate osseous demineralization with mild compression deformities of the T5-T7 vertebral bodies, age-indeterminate. No high-grade compression fracture or rib fracture. 5. Additional findings as above. EMG/NCS: none I personally reviewed these images and discussed them with the patient Assessment/Plan ASSESSMENT: 1.Bilateral L>R that radiates to the left side across her ribs to the axillary region( in the settingof known myasthenia Gravis, pulmonary fibrosis and heart failure) Likely Vertebral Compression Fracture seen on diagnostic imaging ( mild compression deformities of the T5-C8fpajdpuyu bodies on CT 04/2024 and 08/2024)( and seen on new MRI) Likely Thoracic Radiculopathy givenradicular complaints, pain with flexion Likely Myofascial Pain givenpain reproduced with muscular stretch Likely concomitant Discogenic Pain givenreproduction of pain with forwardbending. Possiblyconcomitant Facet-mediated Pain giventenderness over facet joints,patient reportingpain withexcessive extension,facet arthropathy seen on x-ray. PLAN: Diagnostics: None at this time Her Dexa scan is also pending at this time Injections: None at this time _patient is chronically on oral steroids. Steroid injections would not be a good option at this time. _ _ Medications: None at this time _ Modalities: Continue use of heating pad PRN. Advised patient not to sleep on heating pad Orthotics:/DME None at this time Therapeutic exercise: PT prescription written Consults: She is established with ortho spine at [facility] She is seeing rheum for osteoporosis, rheum says she is candidate for anabolic therapies for osteoporosis She is established with pulmonology at [facility], [place], has follow up soon She sees neurology for MG and recently has an appointment Education: A lengthy discussion was held with the patient regarding their diagnosis andprognosis. We discussed workup and treatment strategies including physical therapy, pharmacologic management, injections, and surgery The patients questions were sought and answered satisfactorily. Other: Reviewed prior notes fromPCP,and rheumatology and reviewed recent labs Follow-up visit: Scheduled for:follow up to coincide with completion of, PT Advised patient to seek urgent medical attention if they develop new onset progressive weakness and/or bowel/bladder dysfunction Kerry Trevino, Sports Medicine and Interventional Spine Physical Medicine & Rehabilitation Total time on the date of the encounter which includes both the hynr-bi-tyrp and yed-bdae-ot-face time personally spent by the physician and/or other qualified health healthcare administration internship(s) on the day of the encounter consisting of a total of30 minutes (F/U -level 4)including Medical Decision Making, preparing to see the patient (eg, review of tests), obtaining and/or reviewing separately obtained history, performing a medically appropriate examination and/or evaluation, counseling and educating the patient/family/caregiver,ordering medications, tests, or procedures,referring and communicating with other health critical care transport nurse, documenting clinical information in the electronic or other health record, independently interpreting results (not separately reported) and communicating results to the patient/ family/caregiver, care coordination Electronic Signature on File Electronically Reviewed/Signed by: Kerry Trevino DO Author Signature Dt/Tm:10/13/2024 05:14 PM Division of Sports Medicine JL Patient Care team information Care Team Personnel Name: DO Lezama Franklin J Position: Physician - Family Med Member Role: Primary Care Provider Address: [address] [place] [id number] Care Team Related Persons Name: HOLLI COTO Name: TATIANA PEDERSON
--- NOTE | 2024-11-15 13:43 | CT Scan Report ---
ABDOMEN AND PELVIS CT WITH IV CONTRAST CT DOSE: 1494.28 mGy.cm HISTORY: Acute left-sided abdominal pain Left sided abdominal pain TECHNIQUE: Multiaxial CT images of the abdomen and pelvis were performed following the IV administrat ion of 93 cc of Optiray, A dose lowering technique was utilized adhering to the principles of ALARA. COMPARISON STUDY: Chest CT 08/26/2024, CT abdomen and pelvis 12/30/2016, MRI thoracic spine 09/29/2024 FINDINGS: Cardiomegaly with coronary artery calcifications. Mild bibasilar atelectasis/scarring with mild left basilar bronchiectasis. No pneumatosis or pneumoperitoneum. Mild splenomegaly, 13.5 cm. Un remarkable pancreas and adrenal glands. Cholecystectomy. Probable hepatic steatosis. Patency of the h epatic and portal veins. Unremarkable kidneys. No hydronephrosis. Urinary bladder is within normal li mits. Hysterectomy. Mild atherosclerosis of the aorta. No lymphadenopathy. No bowel obstruction or bowel wall thickening. Colonic diverticulosis without acute diverticulitis. N o ascites or mesenteric inflammation. The appendix is not visualized. Tiny fat filled umbilical herni a. Intervertebral disc space narrowing throughout the thoracic spine redemonstrated. T5, T6 and T7 co mpression deformities are redemonstrated which appear unchanged likely chronic. Right hip arthroplast y. IMPRESSION: 1. No acute intra-abdominal or intrapelvic abnormality. 2. Colonic diverticulosis without acute diverticulitis. 3. Cholecystectomy. 4. Incidental findings as above. ACT 112: Negative or not required by law. The above report was generated using voice recognition software. It may contain grammatical, syntax o r spelling errors. Electronically signed by: Jamir Castro M.D. 11/15/2024 1:42 PM
[2024-11-15] MEDS: ALBUT/IPRATROP 3MG/0.5MG NEB 3 ML VIAL ONE (13:51)
[2024-11-15] MEDS: pyRIDostigmine bromide 60 MG TAB PO STA (14:29)
[2024-11-15] MEDS: FUROSEMIDE 40 MG/4 ML VIAL IV STA (14:29)
--- NOTE | 2024-11-15 14:43 | Pulmonary Consultation ---
Date of Consultation November 15, 2024 Assessment & Plan (1) Respiratory failure with hypercapnia: Multifactorial in the morbidly obese 74-year-old female with a history of elevated RIGHT-sided hemidiaphragm, obstructive sleep apnea, and myasthenia gravis. Patient initially placed on BiPAP in the emergency department secondary to work of breathing. Follow-up NIF found to be consistently -20. VBG obtained and demonstrated degree of CO2 retention as well. Concern is for respiratory muscle weakness in the setting of myasthenia crisis. The patient has undergone elective plasmapheresis 2-3 times a year over the last few years. I did discuss with the patient that our concern with certainly would be for myasthenia crisis given her respiratory weakness and associated hypercarbia. Despite this, she is comfortable staying at this institution and initially had reported to be a DNR/DNI. After conversation, she and the daughter report that they would wish to undergo intubation if her respiratory status were to decline if this meant that she could get to an institution that provides plasma exchange. I had outlined to them at great length that we do not provide plasma exchange at this institution and while this would likely represent gold standard of care, we do not have that available. They do recognize this and despite this conversation, they are comfortable staying here with the caveat that if her situation were to decline, that they would consider transfer of higher level of care. Will a ddress CODE STATUS in the chart to reflect such. For now, would continue with BiPAP as tolerated. Would recommend negative inspiratory force to be obtained every 6 hours to assess for possible decline. Encourage pulmonary toileting including incentive spirometry and flutter valves. Will add nebulized therapies in the form of budesonide and Perforomist as patient is bronchospastic now. (2) Respiratory syncytial virus (RSV): Found to be positive today on labs. Likely driving the patient's symptoms. Continue with supportive care therapies. She is with coarse breath sounds appreciated in the bilateral lung brennan today. (3) Myasthenia gravis: Patient managed by neurology at [facility]. Lengthy discussion with the patient and #1. Again, I reiterated to the patient and daughter who was present at bedside during conversation that we are concerned that her symptoms could be contributed to myasthenia crisis. Additionally, expressed to them that we do not provide plasmapheresis at this institution and if this is something that she is experienced previously, consideration for transfer to higher level of care would be appropriate. At this point, she chooses to stay here, but she does asked that we reach out to her neurologist. Of note, she does report that her neurologist is "not a fan" of IVIG which is a therapy that we do have available at this institution. After lengthy conversation, the patient and daughter are agreeable to intubation in the event of respiratory failure related to myasthenia crisis if this were to be temporary. Again, this would only be with the intentions for transfer to higher level of care where she could undergo plasma exchange therapy. Patient did provide me the contact information of her neurologist at [facility] in [place], Dr. Schmid ([phone]). I did attempt to contact this provider's office on multiple attempts. I did leave a message for their office to return call to the ICU. (4) Restrictive lung disease: Multifactorial in the morbidly obese 74-year-old female with elevated RIGHT- sided hemidiaphragm and scarring of the bilateral upper lung field noted on CT. (5) CARRIE on CPAP: Continue with BiPAP as needed for now. Can hopefully transition to her home CPAP when status improves. (6) Chronic respiratory failure with hypoxia: 3 L at baseline. Equitable value on 30% FiO2 while on CPAP. (7) Elevated diaphragm: Contributing to restrictive lung dysfunction. (8) Exertional shortness of breath: Chronic. Worse today in the setting of above. History of Present Illness Reason for Consultation: Respiratory Failure Requesting Physician: Dr. Lozoya Attending Physician: Dr. Lozoya History of Present Illness Patient is a 74-year-old female with a significant past medical history of chronic respiratory failure with hypoxia, chronic exertional dyspnea, CARRIE on CPAP, lung parenchymal scarring, bronchiectasis, restrictive lung disease, pulmonary hypertension, elevated RIGHT-sided hemidiaphragm, and myasthenia g ravis. Pulmonary medicine was consulted given the increasing dyspnea in the setting of RSV infection with an underlying diagnosis of myasthenia gravis. Upon evaluation in the emergency department, the patient is awake, alert, and oriented. She reports that she has been ill for approximately 1 week. She has not had documented fevers but is felt febrile. She has had a cough and worsening shortness of breath. Her cough is productive of clear sputum. No hemoptysis. No chest pain or pleuritic discomfort appreciated. She states that the dyspnea and difficulty with breathing has worsened as well as the associated abdominal discomfort which prompted her visit today. While in the emergency department, she had increasing work of breathing and was placed on BiPAP therapy. In discussion with the patient, she reports that in regards to her pulmonary condition, she does not utilize maintenance inhalers on a routine basis. She has used her nebulized albuterol recently secondary to her cough and underlying illness. In regards to her myasthenia gravis, she reports that she has undergone plasmapheresis as ordered by her specialist at [facility] neurology in [place]. She has undergone plasma exchange 2-3 times a year. She states that typically her symptoms for plasma exchange are generalized weakness, fatigue, and increasing fluid retention. She does not appreciate the fluid retention now, but does feel generally weak and does note that her breathing has been worse. Allergies Allergy/AdvReac Type Severity Reaction Status Date / Time propoxyphene Allergy Intermediate muscle Verified 11/15/24 12:33 cramps [id number]-PuC Reductase Allergy Mild WEAKNESS Verified 11/15/24 12:33 Inhibitor [Jpqspio-Rvm-Jra Reductase Inhibitor] Home Medications Medication Instructions Recorded Confirmed Type atenolol 25 mg tablet 12.5 mg PO BID 08/03/19 11/15/24 History gabapentin 300 mg capsule 300 mg PO HS 08/03/19 11/15/24 History pyridostigmine bromide 180 mg 180 mg PO HS 08/03/19 11/15/24 History tablet,extended release (Mestinon Timespan) pyridostigmine bromide 60 mg 60 mg PO QID 08/03/19 11/15/24 History tablet (Mestinon) sertraline 100 mg tablet 100 mg PO QAM 08/03/19 11/15/24 History epinephrine 0.3 mg/0.3 mL 0.3 mg (0.3 mL) IM Q15M PRN 10/02/21 11/15/24 Rx injection, auto-injector (EpiPen anaphylaxis #2 ea 2-Kyaw) apixaban 5 mg tablet (Eliquis) 5 mg PO BID 12/16/21 11/15/24 History Oxygen Home #1 ea 01/20/22 09/20/24 Rx omeprazole 40 mg capsule,delayed 40 mg PO QAM 06/24/22 11/15/24 History release Auto Titrating CPAP #1 ea 08/13/22 09/20/24 Rx CPAP Supplies #1 ea 08/13/22 09/20/24 Rx azathioprine 50 mg tablet (Imuran) 50 mg PO BID 01/13/23 11/15/24 History prednisone 10 mg tablet 10 mg PO DAILY 07/16/23 11/15/24 History furosemide 40 mg tablet 40 mg PO UD Weight Gain 11/18/23 11/15/24 History sacubitril 24 mg-valsartan 26 mg 1 tab PO BID 11/18/23 11/15/24 History tablet (Entresto) spironolactone 25 mg tablet 12.5 mg PO QAM 11/18/23 11/15/24 History colestipol 1 gram tablet 2 g PO BID 12/06/23 11/15/24 History cyanocobalamin (vitamin B-12) 1,000 mcg IM MONTHLY 12/09/23 11/15/24 History 1,000 mcg/mL injection solution famotidine 20 mg tablet (Acid 20 mg PO DAILY #90 tabs 05/25/24 11/15/24 Rx First Aid Attendant (famotidine)) lidocaine 5 % topical patch 1 patch topical DAILY #15 ea 08/26/24 11/15/24 Rx (Lidoderm) cyclobenzaprine 10 mg tablet 10 mg PO Q8H spasm #30 tabs 08/29/24 11/15/24 Rx levothyroxine 175 mcg tablet 175 mcg PO QAM #30 tabs 09/11/24 11/15/24 Rx immun glob G 10 gram/50 mL(20 See Rx Instructions subcut 09/20/24 11/15/24 Rx %)-pro-IgA 0-50 mcg/mL .COMPLEX #50 mL subcutaneous soln (Hizentra) ergocalciferol (vitamin D2) 1,250 1,250 mcg PO Q7D #12 caps 09/27/24 11/15/24 Rx mcg (50,000 unit) capsule teriparatide 20 mcg/dose (600 20 mcg (0.08 mL) subcut DAILY #2.4 10/10/24 11/15/24 Rx mcg/2.4 mL) subcutaneous pen mL injector amoxicillin 875 mg-potassium 1 tab PO Q12H 11/15/24 11/15/24 History clavulanate 125 mg tablet prednisone 20 mg tablet 20 mg PO DAILY 11/15/24 11/15/24 History sulfamethoxazole 800 1 tab PO 3XWK 11/15/24 11/15/24 History mg-trimethoprim 160 mg tablet (Bactrim DS) Patient History Medical History (Updated 11/15/24 @ 15:03 by Israel Malagon PA-C) Overactive bladder GERD (gastroesophageal reflux disease) Hypothyroidism Low iron iron infusion 10/2023 ? Pulmonary emboli 2007 ? reason (on coumadin for short time) Myasthenia gravis CHF (congestive heart failure) Atrial fibrillation followed by Dr. Owens>holter monitor device on presently>to be worn until 11/27/23 Sleep apnea cpap Degenerative disc disease Surgical History History of cataract surgery rt/left History of thymectomy History of total hysterectomy with bilateral salpingo-oophorectomy (BSO) History of bilateral tubal ligation History of total right hip replacement History of colonoscopy with polypectomy History of esophagogastroduodenoscopy (EGD) History of cholecystectomy History of tooth extraction History of cardiac cath ? 10+yrs ago @ [facility] [place]--no stents Family History (Updated 12/06/23 @ 15:21 by Migdalia Gunter) Brother Family history of diabetes mellitus Brother Family history of diabetes mellitus Mother Stroke Heart disease Father Leukemia Other Diabetes No family history of adverse response to anesthesia No family history of bleeding disorder Denies family history of Lung disease Asthma Social History (Updated 12/06/23 @ 15:22 by Migdalia Gunter) Smoking Status: Never smoker Second Hand Exposure: No; Do You Dip or Chew Tobacco: No; Hx Alcohol Use: No Hx Substance Use: No Preferred Language: [place] Citizen Communication Ability: Effective Visual Impairment: No Limitations Hearing Ability: Normal Health Insurance Agent Required: No Beliefs That Will Affect Care: None marital status: Current Living Situation: Family Current Living Situation Comment: with son current occupational status: retired Feels Safe at Home: Yes Assistive Devices: CPAP and Glasses Review of Systems Review of Systems: A complete 10 point review of systems was reviewed with the patient with pertinent positives and negatives as per history of present illness. All else were negative. Physical Exam Physical Exam: VITAL SIGNS Vital signs and nursing notes were reviewed. GENERAL 74-year-old female appearing her stated age who is mild respiratory distress. Communicates well with provider and answers questions appropriately. SKIN Without rashes or lesions. NOSE Midline and without cyanosis. MOUTH/OROPHARYNX Without perioral cyanosis. NECK Neck with FROM. LUNGS Chest wall evaluation demonstrates normal chest wall A:P diameter. Auscultation reveals coarse breath sounds bilaterally. No rales. CARDIAC RRR with S1/S2. No murmur, rubs, or gallops appreciated. ABDOMEN Abdominal inspection demonstrates an obese abdomen. BS normoactive all four quadrants. No tenderness, palpable masses, or ascites noted. EXTREMITIES Nail clubbing not present. No peripheral cyanosis. Mild pretibial edema present. +3/5 radial palpated throughout. PSYCH A&Ox3 and cooperates fully with examiner. Pt is very pleasant and interacts well with examiner. Results & Data Results & Data Vital Signs (Past 12 Hours) Vital Signs Temp Pulse Pulse Resp BP BP Pulse Ox 11/15/24 13:51 76 18 99 11/15/24 13:28 87 11/15/24 13:00 84 22 167/78 H 100 11/15/24 12:27 79 24 128/62 100 11/15/24 11:57 79 20 153/82 H 100 11/15/24 11:31 78 26 H 177/86 H 100 11/15/24 11:06 82 24 159/92 H 100 11/15/24 11:00 79 24 159/92 H 100 11/15/24 10:39 85 24 155/78 H 100 11/15/24 10:03 93 H 26 H 159/109 H 100 11/15/24 09:55 96 H 28 H 99 11/15/24 09:55 96 H 28 H 99 11/15/24 09:51 108 H 30 H 167/76 H 90 11/15/24 09:30 102 H 26 H 127/71 100 11/15/24 09:28 99 H 11/15/24 09:09 35.9 C L 119 H 24 163/72 H 95 11/15/24 09:06 102 H 26 H 127/71 100 O2 Del Method O2 Flow Rate FiO2 11/15/24 13:51 BiPAP 30 11/15/24 13:28 11/15/24 13:00 BiPAP 11/15/24 12:27 11/15/24 11:57 11/15/24 11:31 BiPAP 11/15/24 11:06 BiPAP 11/15/24 11:00 BiPAP 11/15/24 10:39 BiPAP 11/15/24 10:03 BiPAP 11/15/24 09:55 40 11/15/24 09:55 BiPAP 40 11/15/24 09:51 11/15/24 09:30 11/15/24 09:28 11/15/24 09:09 Nasal Cannula 5 11/15/24 09:06 BiPAP PG Care Time/CCT Total # of Minutes Spent Total Time Spent with Patient: Total time spent is greater than 50% in coordination of care (as documented) at patient's floor/unit and/or counseling patient: Coding Level of Care Code 71591 INT INP/OBS CARE 2/55MIN Diagnoses Respiratory failure with hypercapnia J96.92 Respiratory syncytial virus (RSV) B33.8 Myasthenia gravis G70.00 Restrictive lung disease J98.4 CARRIE on CPAP G47.33; Z99.89 Chronic respiratory failure with hypoxia J96.11 Elevated diaphragm J98.6 Exertional shortness of breath R06.02
[2024-11-15] MEDS ORDERED: FUROSEMIDE 40 MG TAB PO SCH (15:19)
[2024-11-15] MEDS ORDERED: ONDANSETRON INJ 2 MG/ML 2 ML VIAL IV PRN (15:19)
[2024-11-15] MEDS: ALBUT/IPRATROP 3MG/0.5MG NEB 3 ML VIAL NEB SCH (18:32)
[2024-11-15] MEDS: BUDESONIDE 0.5 MG/2 ML VIAL (PULMICORT) NEB SCH (18:32)
[2024-11-15] MEDS: FORMOTEROL 20 MCG/2 ML VIAL NEB SCH (18:32)
[2024-11-15] MEDS: FORMOTEROL 20 MCG/2 ML VIAL ONE (18:32)
[2024-11-15] MEDS: pyRIDostigmine bromide 60 MG TAB PO SCH (18:37)
[2024-11-15] MEDS ORDERED: PNEUMOCOCCAL VACCINE (PCV20) 20-VAL CONJ-DIP CRM/PF 0.5 ML SYR IM ONE (18:37)
[2024-11-15] MEDS: APIXABAN 5 MG TABLET PO SCH (20:11)
[2024-11-15] MEDS: guaiFENesin 600 MG TABCR PO SCH (20:12)
[2024-11-15] MEDS: ATENOLOL 25 MG TABLET PO SCH (20:12)
[2024-11-15] MEDS: azaTHIOprine 50 MG TAB PO SCH (20:12)
[2024-11-15] MEDS: VALSARTAN/SACUBITRIL 26/24MG TAB PO SCH (20:13)
[2024-11-15] MEDS: PYRIDOSTIGMINE 180 MG PO SCH (20:14)
[2024-11-15] MEDS: COLESTIPOL HCL 1 GM TAB PO SCH (21:18)
[2024-11-16] MEDS: METOPROLOL TARTRATE 1 MG/ML VIAL IV STA ×2 (00:44→01:29)
[2024-11-16] MEDS ORDERED: 0.2 MICRON FILTER SET 1 EACH IV ONE (01:49)
--- NOTE | 2024-11-16 01:50 | Communication Note ---
Date of Service: November 16, 2024 Notified by nursing 00:23 that patient developed heart rate of 130-140 bpm on telemetry, with an EKG showing Afib with RVR). The patient was asymptomatic. Blood pressure: 145/75. IV Lopressor 5 mg was administered, but the heart rate remained in the 130s. A second dose of 5 mg IV Lopressor was given. A CMP and magnesium levels were ordered. Magnesium was 2.1, and potassium was 3.8. Due to persistent elevated HR, 150 mg of Amiodarone was administered. The patient converted to normal rhythm around 4:20 AM. At 4:50AM patient returned to [facility] with RVR with HR 130-140. Patient placed on Amiodarone drip. Will consulted cardiology for further recommendations while patient is in house. Patient is for transfer to [facility] pending bed The patient has a known history of paroxysmal atrial fibrillation and is currently on Eliquis and Atenolol. Cardiology note was reviewed, and options for treatment are limited to AV sowmya blockers.
[2024-11-16] MEDS: AMIODARONE / D5W 150 MG/100 ML BAG IV STA (01:58)
[2024-11-16 02:53] LABS: Albumin Globulin Ratio 1.4 (0.9-2); Albumin Level 3.7 gm/dl (3.4-5.0); BUN Creatinine Ratio 24.2 (10-20); Bilirubin,Total 0.3 mg/dl (0.2-1.0); Calcium 9.4 mg/dl (8.6-10.3); Creatinine Clr Calc Pharmacy 45.5 ml/min; Globulin 2.7 gm/dl (2.5-4.0); Magnesium 2.1 mg/dl (1.7-2.4); Potassium 3.8 mmol/L (3.5-5.1); Total Protein 6.4 gm/dl (6.0-8.3)
[2024-11-16] MEDS ORDERED: STAT IV Infusion **Titration per Protocol STA ×2 (04:55→10:35)
[2024-11-16] MEDS ORDERED: AMIODARONE / D5W 150 MG/100 ML BAG IV STA (04:55)
[2024-11-16] MEDS ORDERED: 0.2 MICRON FILTER SET 1 EACH IV STA (04:55)
[2024-11-16] MEDS ORDERED: AMIODARONE IV BOLUS & DRIP IV STA (04:55)
[2024-11-16] MEDS: AMIODARONE / D5W 360 MG/200 ML BAG IV ONE (05:07)
[2024-11-16] MEDS: LEVOTHYROXINE SODIUM 175 MCG TABLET PO SCH (05:08)
[2024-11-16] MEDS: FUROSEMIDE INJ 20 MG/2 ML VIAL IV ONE (06:17)
--- NOTE | 2024-11-16 07:48 | Electrocardiogram Report ---
Test Reason : Blood Pressure : */* mmHG Vent. Rate : 139 BPM Atrial Rate : * BPM P-R Int : * ms QRS Dur : 70 ms QT Int : 332 ms P-R-T Axes : * 30 121 degrees QTcB Int : 505 ms Atrial fibrillation with rapid ventricular response Abnormal ECG When compared with ECG of 15-Nov-2024 09:27, Atrial fibrillation has replaced Sinus rhythm HR has increased by 39 bpm Confirmed by Polo Willis ([id number]) on 11/16/2024 7:48:02 AM Referred By: REFERRED SELF Confirmed By: Polo Willis
[2024-11-16] MEDS: predniSONE 20 MG TAB PO SCH (07:52)
[2024-11-16] MEDS: FAMOTIDINE 20 MG TAB PO SCH (07:52)
--- NOTE | 2024-11-16 08:07 | XRay Report ---
EXAM: XR chest 1V portable CLINICAL HISTORY: CHF/ hypoxia. TECHNIQUE: An X-ray image of the chest is obtained in PA projection. COMPARISON: Comparison with the previous study dated 04/04/2024. FINDINGS: Suboptimal inspiratory effort. Median sternotomy wires and surgical clips were seen. Pulmonary Parenchyma: Increased bronchovascular markings seen in the lung brennan bilaterally with a subtle haze overall suggest acute infective inflammatory versus congestive changes. Peribronchial cuffing is seen along the perihilar regions more so on the right side. The focal wedge-shaped patch of opacification seen in the right lung upper zone periphery suggests focal collapse consolidation. Hazziness of left lower lung zone with obliteration of the left costophrenic angle suggesting left-sided pleural effusion. No right-sided pleural effusion seen Heart and Mediastinum: Cardiomegaly. Slightly prominent nasreen more so on the right side with peribronchial cuffing Bony Thorax: The bony thorax appears intact without fractures or deformities. Soft Tissues: Soft tissues overlying the chest wall are unremarkable. IMPRESSION: 1. Interval increase of the bronchovascular markings in the lung brennan bilaterally suggesting progression of prior infective bronchitic versus lung congestive changes. 2. Interval stable wedge-shaped focal segmental collapse consolidation in the right lung upper zone periphery. 3. Moderate left-sided pleural effusion redemonstrated, unchanged since prior. 4. Cardiomegaly, stable. 5. Clinical and lab correlation advised. Electronically signed by Atif Zarate 11-16-2024 08:06 AM
[2024-11-16] MEDS: LIDOCAINE 5% 1 PATCH TD SCH (08:37)
[2024-11-16] MEDS: ACETAMINOPHEN 325 MG TAB PO PRN (08:37)
[2024-11-16] MEDS ORDERED: FUROSEMIDE 40 MG TAB PO SCH (09:00)
[2024-11-16 10:27] VITALS: TEMP 98.2
[2024-11-16] MEDS: dilTIAZem HCL 125 MG in DEXTROSE 5% 100 ML IV SCH (11:00)
[2024-11-16] MEDS: SERTRALINE HCL 100 MG TABLET PO SCH (11:01)
[2024-11-16] MEDS: SPIRONOLACTONE 12.5 MG TAB PO SCH (11:01)
[2024-11-16] MEDS: PANTOprazole 40 MG TAB PO SCH (11:01)
[2024-11-16] MEDS: predniSONE 10 MG TABLET PO SCH (11:02)
[2024-11-16] MEDS: AMIODARONE / D5W 360 MG/200 ML BAG IV SCH (11:03)
[2024-11-16] MEDS: SODIUM CHLOR 7% 4 ML NEB NEB ONE (11:52)
--- NOTE | 2024-11-16 12:03 | Cardiology Consultation ---
Date of Consultation November 16, 2024 Assessment & Plan (1) Acute respiratory failure with hypercapnia: (2) (HFpEF) heart failure with preserved ejection fraction: (3) Atrial fibrillation with RVR: Plan Pmhx: 1. Sleep apnea, using CPAP 2. Paroxysmal atrial fibrillation, on propafenone and atenolol (CHADS2-VASc score of 3). 3. Myasthenia gravis in the past requiring high-dose steroids, Imuran, and plasmapheresis. 4. Esophageal reflux disease. 5. History of DVT and PE for which she was on Coumadin for approximately 6 months. 7. Negative cardiac catheterization for epicardial coronary artery disease 09/2014. 8. Borderline hypertension. 9. COVID exposure, requiring a 2-week hospitalization. 10. Echo 08/2023 Normal BiV fxn; mild Pulm HTN, Type 1 DD withe elevated pressures 11. CHF admission 02/2024 secondary to hypoxia Ms. Ordonez heart rate is going to be very difficult to control while she remains hypoxic and severely ill. She should continue on the amiodarone drip. We will add a diltiazem drip as well as her heart rate has not yet responded to the amiodarone. She denies anginal symptoms at this time. She continues on Eliquis for stroke prevention. Her blood pressures have improved a bit and will likely improve further with better stroke volume from a slower heart rate. She did have a slightly elevated bnp on admission. She did receive a dose of IV diuretic on admission. She should continue her Entresto and spironolactone. History of Present Illness Attending Physician: Angelito Rios MD, PhD History of Present Illness Mrs. Cisneros presented to the emergency department on November 15 due to shortness of breath and cough. She notes that she has been sick for about a week. She tested positive for RSV. She is off the BiPAP today but had required it overnight. Her respirations are tachypneic. She feels short of breath. She denies any chest pain. She has been in A-fib RVR on the monitor starting last evening although she did have a brief conversion to sinus rhythm but then lapsed back into an atrial fibrillation. She was started on amiodarone overnight. Her heart rates are currently ranging 120s-140s. Allergies Allergy/AdvReac Type Severity Reaction Status Date / Time propoxyphene Allergy Intermediate muscle Verified 11/15/24 12:33 cramps Cpbfwgz-APO-DsD Reductase Allergy Mild WEAKNESS Verified 11/15/24 12:33 Inhibitor [Vosuhee-Ewn-Ybt Reductase Inhibitor] Home Medications Medication Instructions Recorded Confirmed Type atenolol 25 mg tablet 12.5 mg PO BID 08/03/19 11/15/24 History gabapentin 300 mg capsule 300 mg PO HS 08/03/19 11/15/24 History pyridostigmine bromide 180 mg 180 mg PO HS 08/03/19 11/15/24 History tablet,extended release (Mestinon Timespan) pyridostigmine bromide 60 mg 60 mg PO QID 08/03/19 11/15/24 History tablet (Mestinon) sertraline 100 mg tablet 100 mg PO QAM 08/03/19 11/15/24 History epinephrine 0.3 mg/0.3 mL 0.3 mg (0.3 mL) IM Q15M PRN 10/02/21 11/15/24 Rx injection, auto-injector (EpiPen anaphylaxis #2 ea 2-Kyaw) apixaban 5 mg tablet (Eliquis) 5 mg PO BID 12/16/21 11/15/24 History Oxygen Home #1 ea 01/20/22 09/20/24 Rx omeprazole 40 mg capsule,delayed 40 mg PO QAM 06/24/22 11/15/24 History release Auto Titrating CPAP #1 ea 08/13/22 09/20/24 Rx CPAP Supplies #1 ea 08/13/22 09/20/24 Rx azathioprine 50 mg tablet (Imuran) 50 mg PO BID 01/13/23 11/15/24 History prednisone 10 mg tablet 10 mg PO DAILY 07/16/23 11/15/24 History furosemide 40 mg tablet 40 mg PO UD Weight Gain 11/18/23 11/15/24 History sacubitril 24 mg-valsartan 26 mg 1 tab PO BID 11/18/23 11/15/24 History tablet (Entresto) spironolactone 25 mg tablet 12.5 mg PO QAM 11/18/23 11/15/24 History colestipol 1 gram tablet 2 g PO BID 12/06/23 11/15/24 History cyanocobalamin (vitamin B-12) 1,000 mcg IM MONTHLY 12/09/23 11/15/24 History 1,000 mcg/mL injection solution famotidine 20 mg tablet (Acid 20 mg PO DAILY #90 tabs 05/25/24 11/15/24 Rx Valve Tester (famotidine)) lidocaine 5 % topical patch 1 patch topical DAILY #15 ea 08/26/24 11/15/24 Rx (Lidoderm) cyclobenzaprine 10 mg tablet 10 mg PO Q8H spasm #30 tabs 08/29/24 11/15/24 Rx levothyroxine 175 mcg tablet 175 mcg PO QAM #30 tabs 09/11/24 11/15/24 Rx immun glob G 10 gram/50 mL(20 See Rx Instructions subcut 09/20/24 11/15/24 Rx %)-pro-IgA 0-50 mcg/mL .COMPLEX #50 mL subcutaneous soln (Hizentra) ergocalciferol (vitamin D2) 1,250 1,250 mcg PO Q7D #12 caps 09/27/24 11/15/24 Rx mcg (50,000 unit) capsule teriparatide 20 mcg/dose (600 20 mcg (0.08 mL) subcut DAILY #2.4 10/10/24 11/15/24 Rx mcg/2.4 mL) subcutaneous pen mL injector amoxicillin 875 mg-potassium 1 tab PO Q12H 11/15/24 11/15/24 History clavulanate 125 mg tablet prednisone 20 mg tablet 20 mg PO DAILY 11/15/24 11/15/24 History sulfamethoxazole 800 1 tab PO 3XWK 11/15/24 11/15/24 History mg-trimethoprim 160 mg tablet (Bactrim DS) Patient History Medical History Overactive bladder GERD (gastroesophageal reflux disease) Hypothyroidism Low iron iron infusion 10/2023 ? Pulmonary emboli 2007 ? reason (on coumadin for short time) Myasthenia gravis CHF (congestive heart failure) Atrial fibrillation followed by Dr. Owens>holter monitor device on presently>to be worn until 11/27/23 Sleep apnea cpap Degenerative disc disease Surgical History History of cataract surgery rt/left History of thymectomy History of total hysterectomy with bilateral salpingo-oophorectomy (BSO) History of bilateral tubal ligation History of total right hip replacement History of colonoscopy with polypectomy History of esophagogastroduodenoscopy (EGD) History of cholecystectomy History of tooth extraction History of cardiac cath ? 10+yrs ago @ [facility] [place]--no stents Family History (Updated 12/06/23 @ 15:21 by Migdalia Gunter) Brother Family history of diabetes mellitus Brother Family history of diabetes mellitus Mother Stroke Heart disease Father Leukemia Other Diabetes No family history of adverse response to anesthesia No family history of bleeding disorder Denies family history of Lung disease Asthma Social History Smoking Status: Never smoker Second Hand Exposure: No; Do You Dip or Chew Tobacco: No; Hx Alcohol Use: No Hx Substance Use: No Preferred Language: Maltese Communication Ability: Effective Visual Impairment: No Limitations Hearing Ability: Normal 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 Beliefs That Will Affect Care: None marital status: Current Living Situation: Alone Current Living Situation Comment: with son current occupational status: retired Feels Safe at Home: Yes Assistive Devices: Glasses, Oxygen - Continuous and Walker Review of Systems Review of Systems: All systems reviewed & are unremarkable except as noted in HPI & below Physical Exam Constitutional: + ill appearing Respiratory: + labored breathing Auscultation: + r honchi and + wheezes Cardiovascular: Rate/Rhythm: + abnormal rate and + abnormal rhythm Extremities: + edema (mild lower extremity) Skin: + pallor Neurologic: moves all extremities and awake Psychiatric: A+Ox3, euthymic affect Results & Data Vital Signs (Past 12 Hours) Vital Signs Temp Pulse Pulse Pulse Resp BP BP 11/16/24 11:22 138/64 11/16/24 10:25 36.8 C 123 H 21 124/90 11/16/24 07:30 153 H 30 H 110/78 11/16/24 07:00 11/16/24 06:31 75 22 11/16/24 05:07 106 H 21 11/16/24 05:02 149 H 128/64 11/16/24 03:23 36.7 C 133 H 18 96/61 L 11/16/24 01:44 138 H 11/16/24 00:59 135 H 152/92 H 11/16/24 00:40 112 H 18 11/16/24 00:36 142 H 18 145/70 H Pulse Ox O2 Del Method O2 Flow Rate FiO2 11/16/24 11:22 11/16/24 10:25 98 Nasal Cannula 4 11/16/24 07:30 98 Room Air 4 11/16/24 07:00 Nasal Cannula 3 11/16/24 06:31 98 Nasal Cannula 4 11/16/24 05:07 96 30 11/16/24 05:02 11/16/24 03:23 95 High Flow Nasal Cannula 11/16/24 01:44 11/16/24 00:59 11/16/24 00:40 98 BiPAP 30 11/16/24 00:36
--- NOTE | 2024-11-16 13:32 | Pulmonology Progress Note ---
Date of Service November 16, 2024 Assessment & Plan (1) Respiratory failure with hypercapnia: Plan: Continue BiPAP as needed and wean supplemental oxygen as able. (2) Respiratory syncytial virus (RSV): Plan: Continue supportive care. Patient bronchospastic on exam. Continue twice daily Pulmicort and twice daily performance. Initiate hypertonic saline twice daily along with flutter valve to promote airway clearance. (3) Myasthenia gravis: Plan: Continuing following negative inspiratory force. Patient without clear-cut evidence of myasthenia crisis at this time, but at high risk for rapid decline. Patient currently on home doses of prednisone and pyridostigmine. Would highly recommend transfer to a tertiary center in case she develops a myasthenia crisis. (4) Restrictive lung disease: Plan: Multifactorial in the morbidly obese 74-year-old female with elevated RIGHT- sided hemidiaphragm and scarring of the bilateral upper lung field noted on CT. (5) CARRIE on CPAP: Plan: Continue with BiPAP as needed for now. Can hopefully transition to her home CPAP when status improves. (6) Chronic respiratory failure with hypoxia: Plan: Patient on 3 to 4 L at baseline at home. Currently on 4 L. Saturations of 99% on 4 L at present. (7) Elevated diaphragm: Plan: Contributing to restrictive lung dysfunction. Plan Pulmonary to continue to follow. Thank you for the consult. Admission and Anticipated Discharge Date Admission Date: November 15, 2024 Subjective Patient seen examined. She had difficult night last night with atrial fibrillation. She complains of stable shortness of breath compared to yesterday. 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 She denies any diplopia which is typically how her myasthenia crisis develops. She does not have any fevers or chills. Review of Systems Review of Systems: All systems reviewed & are unremarkable except as noted in HPI & below Physical Exam Physical Exam: VITAL SIGNS Vital signs and nursing notes were reviewed. GENERAL 74-year-old female appearing her stated age who is mild respiratory distress. Communicates well with provider and answers questions appropriately. SKIN Without rashes or lesions. NOSE Midline and without cyanosis. MOUTH/OROPHARYNX Without perioral cyanosis. NECK Neck with FROM. LUNGS Chest wall evaluation demonstrates normal chest wall A:P diameter. Auscultation bilateral expiratory wheezes with prolonged phase of exhalation. CARDIAC tachycardic. Irregularly irregular. With S1/S2. No murmur, rubs, or gallops appreciated. ABDOMEN Abdominal inspection demonstrates an obese abdomen. BS normoactive all four quadrants. No tenderness, palpable masses, or ascites noted. EXTREMITIES Nail clubbing not present. No peripheral cyanosis. Mild pretibial edema present. +3/5 radial palpated throughout. PSYCH A&Ox3 and cooperates fully with examiner. Pt is very pleasant and interacts well with examiner. Results & Data Results & Data Vital Signs (Past 12 Hours) Vital Signs Temp Pulse Pulse Pulse Resp BP BP 11/16/24 12:43 120 H 23 127/73 11/16/24 11:22 138/64 11/16/24 10:25 36.8 C 123 H 21 124/90 11/16/24 07:30 153 H 30 H 110/78 11/16/24 07:00 11/16/24 06:31 75 22 11/16/24 05:07 106 H 21 11/16/24 05:02 149 H 128/64 11/16/24 03:23 36.7 C 133 H 18 96/61 L 11/16/24 01:44 138 H Pulse Ox O2 Del Method O2 Flow Rate FiO2 11/16/24 12:43 99 Nasal Cannula 4 11/16/24 11:22 11/16/24 10:25 98 Nasal Cannula 4 11/16/24 07:30 98 Room Air 4 11/16/24 07:00 Nasal Cannula 3 11/16/24 06:31 98 Nasal Cannula 4 11/16/24 05:07 96 30 11/16/24 05:02 11/16/24 03:23 95 High Flow Nasal Cannula 11/16/24 01:44 PG Care Time/CCT Total # of Minutes Spent Total Time Spent with Patient: Total time spent is greater than 50% in coordination of care (as documented) at patient's floor/unit and/or counseling patient: Coding Level of Care Code 85286 SUB INP/OBS CARE 2/35MIN Diagnoses Respiratory failure with hypercapnia J96.92 Respiratory syncytial virus (RSV) B33.8 Myasthenia gravis G70.00 Restrictive lung disease J98.4 CARRIE on CPAP G47.33; Z99.89 Chronic respiratory failure with hypoxia J96.11 Elevated diaphragm J98.6
[2024-11-16] MEDS ORDERED: dilTIAZem HCL 125 MG in DEXTROSE 5% 100 ML IV SCH (14:00)
[2024-11-16 15:27] VITALS: BP 134/80; PULSE 60; RESP 25; O2SAT 94
[2024-11-16] MEDS ORDERED: Nursing to Pharmacy Communication SCH ×2 (16:15→16:30)
--- NOTE | 2024-11-16 18:23 | Discharge Summary ---
Discharge Summary Date of Service November 16, 2024 Principal Dx & Hospital Course #1 = Principal Diagnosis (1) Respiratory syncytial virus (RSV): Acute RSV pneumonia in patient with underlying, (a) chronic myasthenia gravis (diagnosed ~20 years ago), maintained on home-scheduled prednisone 30mg PO daily, azathioprine 50mg PO bid, pyridostigmine 60mg PO bid, pyridostigmine 150mg PO qhs, and plasmapheresis at least 3 times per year for the past 20 years, (b) tobacco-naive idiopathic pulmonary fibrosis (diagnosed ~ 9 months ago, [facility]), maintained on home-scheduled 4 liters/minute O2 via nasal cannula [id number], (c) FULL CODE, ACLS as required status. Patient reports 4 days of nasal congestion at home, followed by 1 day of cough, productive of white/yellow phlegm, no hemoptysis, SOB/wheeze at home, prior to admission date 11/15/2024. Patient arrived via ambulance to [facility] ER on 11/15/2024, 9:06am with a resting O2 saturation of 100% on BIPAP. Patient subsequently was titrated off BIPAP with IPAP/EPAP 12/5, RR 14 breaths/m inute, and FIO2 = 0.30, and returned to her home-scheduled 4 liters/minute O2 via nasal cannula [id number] on 11/15/2024, 6:25pm, with a resting O2 saturation of 100%. However, patient was evaluated by Respiratory Therapy Service every 6 hours with NIF measurements of -16 cm H2O (11/15/2024, 9:00pm), -20 cm H2O (11/16/2023, 12:40am), and last NIF -18 cm H2O (11/16/2024, 8:00am). Hence, patient's inability to produce NIF > -30 cm H2O is concerning for physical fatigue in this patient with (a) chronic myasthenia gravis (diagnosed ~20 years ago), maintained on home-scheduled prednisone 30mg PO daily, azathioprine 50mg PO bid, (b) tobacco-naive idiopathic pulmonary fibrosis (diagnosed ~ 9 months ago, [facility]), maintained on home-scheduled 4 liters/minute O2 via nasal cannu la [id number]. As patient remains FULL CODE, ACLS as required, the need for possible intubation and/or mechanical ventilation to avoid or to treat myasthenic crisis (not yet apparent / overt on 11/16/2024) remains on 11/16/2024. In addition, plasmapharesis is not available @ [facility]. Hence, request for transfer to [facility] was made on 11/15/2024 by the admitting hospitalist, but there were no beds available on admission date 11/15/2024, and there are no beds available on discharge date 11/16/2024 at [facility]. Hence, I called [facility] on 11/16/2024, and spoke with [facility] ICU Dr. Saurabh Owens, who graciously accepted patient onto his service @ [facility] ICU. Patient was subsequently transferred to [facility] ICU on 11/16/2024, 4:15pm. (2) Acute respiratory failure with hypercapnia: cf., VBG (11/15/2024, 12:47pm): 7.36 / 58 / 26 / 33 / O2 saturation < 60. Hypercapnia noted above is most likely chronic in duration as pH is normal at 7.36; hypercapnia is most likely to be the result of hypoventilation due to chronic neuromuscular weakness, which in turn, is due to patient's (a) chronic myasthenia gravis (diagnosed ~20 years ago), maintained on home-scheduled prednisone 30mg PO daily, azathioprine 50mg PO bid, pyridostigmine 60mg PO bid, pyridostigmine 150mg PO qhs, and plasmapheresis at least 3 times per year for the past 20 years, and/or (b) tobacco-naive idiopathic pulmonary fibrosis (diagnosed ~ 9 months ago, [facility]), maintained on home-scheduled 4 liters/minute O2 via nasal cannula [id number]-zij-[id number]. Moreover, as stated above in bullet #1, patient was evaluated by Respiratory Therapy Service every 6 hours with NIF measurements of -16 cm H2O (11/15/2024, 9:00pm), -20 cm H2O (11/16/2023, 12:40am), and last NIF -18 cm H2O (11/16/2024, 8:00am). Hence, patient's inability to produce NIF > -30 cm H2O is concerning for physical fatigue in this patient with (a) chronic myasthenia gravis (diagnosed ~20 years ago), maintained on home-scheduled prednisone 30mg PO daily, azathioprine 50mg PO bid, pyridostigmine 60mg PO bid, and pyridostigmine 150mg PO qhs, (b) tobacco-naive idiopathic pulmonary fibrosis (diagnosed ~ 9 months ago, [facility]), maintained on home-scheduled 4 liters/minute O2 via nasal cannula [id number]-abnwn. (3) Myasthenia gravis: See bullet #1 above. (4) (HFpEF) heart failure with preserved ejection fraction: Patient has a past medical history of chronic diastolic CHF with preserved LV EF 65-70% and grade I LV diastolic dysfunction (as noted on 09/07/2023 TTE, [facility] Dr. Hesham Owens). Patient reports no paroxysmal nocturnal dyspnea, orthopnea, platypnea, or weight gain at home in the past 1 week or in [facility]. Patient has no stigmata on exam (cf., pulse pressure narrowing, JVD, HJR, bibasilar crackles, or lower extremity edema) to suggest acute exacerbation of chronic diastolic CHF while in [facility] from 11/15/2024 to 11/16/2024. Moreover, portable CXR (11/15/2024, 9:25am) revealed no pulmonary vascular congestion or pneumothorax or effusion; instead, it demonstrated unchanged cardiomegaly with elevated right hemidiaphragm and unchanged LLL/RUL opacities when compared to 04/18/2025, 5:27pm portable CXR (by my review). Hence, patient was continued on her home-scheduled 2 gram Na diet, daily weights, strict I/O, atenolol 12.5mg PO bid, spironolactone 12.5mg PO daily, furosemide 40mg PO nJrr-Igou-Rhnze-Wed, furosemide 60mg PO aUqm-Utl-Nyw, and sacubitril 24mg - valsartan 26mg PO bid while in [facility] from 11/15/2024 to 11/16/2024, and will continue this same regimen on hospital discharge to [facility] on 11/16/2024. (5) Hypomagnesemia: Patient had an admission Mg 1.4 mg/dL (11/15/2024). Etiology of acute hypomagnesemia remains unclear, but was probably due to patient's home-scheduled furosemide 40mg PO nMiq-Mlsp-Ayqiv-Sat, furosemide 60mg PO yReq-Crc-Xpr, leading to magne-uresis. Patient subsequently received magnesium sulfate 2g IV x 1 dose (11/15/2024, 10:26am, 12:19pm), and acute hypomagnesemia RESOLVED with post-supplement Mg 2.1 mg/dL (11/16/2024, 2:09am). Observe. (6) Microcytic anemia: cf., admission Hb 8.5 g/dL, MCV 78.9, MCHC 29.1 (11/15/2024). cf., baseline Hb range, 10.2 - 11.8 g/dL (02/20/2019 - 08/26/2024) in patient with chronic normocytic, hypochromic anemia. cf., normal Fe 48 ug/dL, normal TIBC 406 ug/dL, normal ferritin 39.4 ng/mL (11/15/2024). Etiology of acute microcytic, hypochromic anemia remains unclear, but may be related to patient's complaints of intermittent, low volume hematochezia, and which may be due to internal hemorrhoids not seen on 11/16/2024 exam. (7) CARRIE on CPAP: Asymptomatic on nocturnal CPAP at home, with no complaints of daytime somnolence on admission date 11/15/2024 or on discharge date 11/16/2024. (8) Restrictive lung disease: See bullet #1 above in regards to patient's underlying, (a) chronic myasthenia gravis (diagnosed ~20 years ago), maintained on home-scheduled prednisone 30mg PO daily, azathioprine 50mg PO bid, pyridostigmine 60mg PO bid, pyridostigmine 150mg PO qhs, and plasmapheresis at least 3 times per year for the past 20 years, (b) tobacco-naive idiopathic pulmonary fibrosis (diagnosed ~ 9 months ago, [facility]), maintained on home-scheduled 4 liters/minute O2 via nasal cannula [id number]-[id number], either/both of which can cause restrictive lung disease. (9) Atrial fibrillation: Past medical history of paroxysmal AFIB, maintained at home on atenolol 12.5mg PO bid and eliquis 5mg PO bid. cf., admission EKG (11/15/2024, 9:27am): sinus tach @ 100, RI 134, QTC 415, no acute ST depressions/elevations (by my review). cf., discharge EKG (11/16/2024, 12:29am): AFIB @ 139, QTC 505, 0.5mm ST depression in V5; no acute ST elevations (by my review). Patient received metoprolol 5mg IVP x 2 doses (11/16/2024, 12:37am, 1:13am), followed by amiodarone 150mg IV x 1 dose (11/16/2024, 1:49am), followed by amiodarone infusion (150mg / 100 mL NS, 600 mL/hr)(11/16/2024, 4:55am) while in [facility]. Patient will not continue amiodarone infusion on hospital discharge to [facility] on 11/16/2024; instead, patient will resume her home-scheduled atenolol 12.5mg PO bid on hospital discharge to [facility] on 11/16/2024. (10) Left sided abdominal pain: cf., AST 21, ALT 19, ALK PHOS 81, TBili 0.4 (11/15/2024, time ?) cf., AST 19, ALT 17, ALK PHOS 79, TBili 0.3 (11/15/2024, 2:09am). cf., CT abdomen/pelvis with IV contrast (11/15/2024): 1. Cardiomegaly with coronary artery calcifications. 2. Mild bibasilar atelectasis/scarring with mild left basilar bronchiectasis. 3. No pneumatosis or pneumoperitoneum. 4. Mild splenomegaly, 13.5 cm. 5. Unremarkable pancreas and adrenal glands. 6. Cholecystectomy. 7. Probable hepatic steatosis. 8. Patency of the hepatic and portal veins. 9. Unremarkable kidneys. 10.No hydronephrosis. 11.Urinary bladder is within normal limits. 12.Hysterectomy. 13.Mild atherosclerosis of the aorta. 14.No lymphadenopathy. 15.No bowel obstruction or bowel wall thickening. 16.Colonic diverticulosis without acute diverticulitis. 17.No ascites or mesenteric inflammation. 18.The appendix is not visualized. 19.Tiny fat filled umbilical hernia. 20.Intervertebral disc space narrowing throughout the thoracic spine redemonstrated. 21.T5, T6 and T7 compression deformities are redemonstrated which appear unchanged likely chronic. 22.Right hip arthroplasty. Hence, etiology of patient's left-sided abdominal pain remains unclear while patient remained in [facility] from 11/15/2024 to 11/16/2024. Observe. (11) Current chronic use of systemic steroids: Immunosuppressed state with patient maintained on home-scheduled prednisone 30mg PO daily, azathioprine 50mg PO bid to manage her chronic myasthenia gravis (diagnosed ~20 years ago). Hence, patient continued to receive her home- scheduled Bactrim DS tablet, 1 tablet PO tiw while in [facility]. Plan VTE Prophylaxis - Lovenox 40mg SQ daily Diet - Low Na, heart healthy diet Disposition - admit to PCU Admission HPI Per Admitting Provider Cassidy Cisneros is a 84 year old female who presents to the ER with 1 week of shortness of breath, cough, left-sided abdominal pain. She reports that myasthenia is at baseline she is not more fatigued than usual however she did have 1 episode of difficulty swallowing last week. She has intermittent plasmapheresis for her myasthenia gravis and Dr. Schmid at [facility] in addition to azathioprine, prednisone and pyridostigmine. She reports nausea and mucus like vomiting yesterday and the night before but none currently. Abdominal pain since the start of illness, no prior history of diverticulitis, no radiation, no exacerbating factors. No diarrhea or constipation. No melena. She has hematochezia intermittently which she puts down to hemorrhoids. She also has a diagnosis of heart failure but notes no chest pain, palpitations. She does not check her weight routinely but did notice her feet more swollen on Wednesday and increased her Lasix to 60 mg daily and reports this is improved. She is chronically on 4 L/min O2. Discharge Exam Constitutional General: Uncomfortable with dyspnea at rest with audible expiratory wheeze, yet coherent, cooperative. Wide awake and alert. Not confused, lethargic, or obtunded. Patient speaks in complete, fluent, and articulate sentences without pause, interruption, cough, or wheeze. HEENT: NC/AT. EOMI, PERRL. No nystagmus, gaze paresis, anisocoria, miosis, mydriasis, hyphema, chemosis, scleral icterus, conjunctivitis, or pterygium. No otorrhea, no rhinorrhea. No pharyngeal discharge or erythema. Neck: Supple, no stridor, bruit, goiter, or hepatojugular reflux. Jugular venous pressure is estimated to be 8 cm above the sternal angle of Roman, which is typically 5 cm above the level of the right atrium. Hence, there is no jugular venous distention noted on discharge exam 11/16/2024. Lymphatics: No pre-post auricular, anterior/posterior cervical, supr aclavicular/infraclavicular, axillary, epitrochlear, or inguinal adenopathy. Chest: Symmetric rise and fall with respirations. Non-tender to palpation. Heart: RRR, S1 and S2 noted. No S3 or S4 summation gallop noted. No tripartite friction rub. Grade II/ early systolic murmur @ LLSB without radiation to the carotids, axilla, or back, and which remains invariant in regards to the respiratory cycle. Lungs: Coarse breath sounds bilaterally with audible expiratory wheeze. No egophony, pectoriloquy, increase in tactile fremitus, or flatness/dullness to percussion at the bases. Abdomen: Soft, non-tender, non-distended. No rebound, guarding, Calixto's sign, or organomegaly. Bowel sounds auscultated in all 4 quadrants. Extremities: No clubbing, cyanosis, or edema. 2+ pedal pulses bilaterally. Skin: No decubitus ulcer, exanthem, or enanthem. Neurology: Alert and oriented in regards to person, place, time, and situation. DTR+ and symmetric. 3/5 motor strength in all 4 extremities, both proximally and distally. No myoclonus, tremors, or tics. Urology: No noriega catheter. No urethral discharge. Psychiatry: Appropriate affect. Smiles occasionally. No homicidal/suicidal ideation. Discharge Plan Discharge Items Patient Disposition: Transfer Acute Care Hospital Reason For Visit: ACUTE HYPOXIC HYPERCAPNIC, RESPIRATORY FAILURE,RSV Discharge Diagnosis: Acute respiratory failure, RSV, Condition on Discharge: Fair Activity: Resume your previous activity Non-emergency contact: Primary Care Provider Call non-emergency contact if: you have any medication questions and your symptoms worsen Follow-up/Referrals: Deng Lezama, [Primary Care Provider] - Diet: Heart Healthy and Low Sodium (2gm) Addtl Attending Provider Instructions: Cassidy Cisneros is a 74 year old female admitted to [facility] on November 15, 2024 for shortness of breath. She was diagnosed with RSV bronchiolitis. On discussion with pulmonology and neurology recommended transfer to facility able to facilitate plasmapheresis if needed. Transfer was arranged to [facility] for ongoing care. Please note medication list below is outpatient medications. See scanned notes for inpatient medication list. Pending Studies at Discharge: No Stand-Alone Forms: My [facility] Skilled Items Patient informed of condition?: Yes DNR: Yes Discharge Level of Care: Other Communicable Disease: Yes Discharge Prognosis: Deteriorating Lines: None Urinary Catheter: No Medications and DC Order Prescriptions: Continued epinephrine [EpiPen 2-Kyaw] 0.3 mg/0.3 mL auto-injector 0.3 mg IM Q15M PRN (Reason: anaphylaxis) Qty: 2 3RF Rx Instructions: For weekly infusions (DME) Oxygen Home Liters Per Minute See Rx Instructions .Route Qty: 1 0RF Rx Instructions: Discontinue Oxygen famotidine [Acid Leather Tooler (famotidine)] 20 mg tablet 20 mg PO DAILY Qty: 90 2RF levothyroxine 175 mcg tablet 175 mcg PO QAM Qty: 30 2RF Hizentra 10 gram/50 mL (20 %) solution See Rx Instructions SUBCUT .COMPLEX Qty: 50 11RF Rx Instructions: 11 gm subcut every week APPROVED 09/20/24-09/20/25 [id number] ergocalciferol (vitamin D2) 1,250 mcg (50,000 unit) capsule 1,250 mcg PO Q7D Qty: 12 0RF Rx Instructions: 1 tab po weekly for 12 weeks. Complete blood work after finishing prescription teriparatide 20 mcg/dose (600mcg/2.4mL) pen injector 20 mcg subcut DAILY Qty: 2.4 11RF Eliquis 5 mg tablet 5 mg PO BID (DME) CPAP Supplies Misc See Rx Instructions .MEDSUPPLY Qty: 1 0RF Rx Instructions: CPAP supplies. G47.33 (DME) Auto Titrating CPAP Misc See Rx Instructions .MEDSUPPLY Qty: 1 0RF Rx Instructions: Auto PAP with 4-16cm H20. Lifetime usage. G47.33 omeprazole 40 mg capsule,delayed release(DR/EC) 40 mg PO QAM prednisone 10 mg tablet 10 mg PO DAILY Patient Comments: 20mg qam/10mg at lunch time Rx Instructions: Take 10mg w/ 20mg to equal 30mg by mouth daily. pyridostigmine bromide [Mestinon] 60 mg tablet 60 mg PO QID pyridostigmine bromide [Mestinon Timespan] 180 mg tablet extended release 180 mg PO HS sertraline 100 mg tablet 100 mg PO QAM atenolol 25 mg tablet 12.5 mg PO BID azathioprine [Imuran] 50 mg tablet 50 mg PO BID Patient Comments: Pt reports she takes 50mg in AM 50 MG in PM colestipol 1 gram tablet 2 g PO BID cyclobenzaprine 10 mg tablet 10 mg PO Q8H Qty: 30 1RF cyanocobalamin (vitamin B-12) 1,000 mcg/mL Solution 1,000 mcg IM MONTHLY prednisone 20 mg tablet 20 mg PO DAILY Rx Instructions: Take 20mg w/ 10mg to equal 30mg by mouth daily. sulfamethoxazole-trimethoprim [Bactrim DS] 800-160 mg tablet 1 tab PO 3XWK Rx Instructions: 1 tab orally 1 tab on Ncahyw-Dblgzkrye-Ygtypc; Start Date 09/27/24 x70 day supply sacubitril-valsartan [Entresto] 24-26 mg Tablet 1 tab PO BID lidocaine [Lidoderm] 5 % adhesive patch,medicated 1 patch topical DAILY Qty: 15 0RF Rx Instructions: leave on most painful area for up to 12 hrs Discontinued gabapentin 300 mg capsule 300 mg PO HS amoxicillin-pot clavulanate 875-125 mg tablet 1 tab PO Q12H Rx Instructions: Start Date 11/14/24 x10 day supply furosemide 40 mg Tablet 40 mg PO UD MDD Addition 20mg if needed Rx Instructions: Take 60mg by mouth Wed/Wed/Wed and 40mg all other days spironolactone 25 mg Tablet 12.5 mg PO QAM Discharge Orders: Discharge Order (Routine); Ordered 11/16/24 Ordered By: Angelito Rios Discharge Order- [facility] (Routine); Ordered 11/16/24 Ordered By: Angelito Rios Admission Data Admit Date/Time: 11/15/24 14:01 Attending Provider: Angelito Rios Admit Provider: Darshan Lozoya Primary Care Provider: Deng Lezama Other Providers: Darshan Lozoya; Ish Pruett; Duran Mo; Polo Willis; Jose D Manzanares; Vikash Kiser; Seth Hurtado; George Pimentel Jr; Rufino Nair; Chyna Dumas; Maribel Patel; Heriberto Guajardo; Heriberto Powell; Drake Hernandez; Cecilia Silva; Savage Dowling; Génesis Owens; Savage Solomon; Jose Barth Hospital Stay Data Consultations 11/15/24 11:55 ED Decision to Admit Stat 11/15/24 15:19 Consult Pulmonology Routine 11/16/24 04:16 Consult Cardiology Routine Diagnostic Imagining Performed 11/15/24 12:33 CT abd pelvis IV con only Stat Pending Results Patient Have Any Pending Studies at Discharge: No Discharge Instructions Given to Patient (Per Discharging Provider) Cassidy Cisneros is a 74 year old female admitted to [facility] on November 15, 2024 for shortness of breath. She was diagnosed with RSV bronchiolitis. On discussion with pulmonology and neurology recommended transfer to facility able to facilitate plasmapheresis if needed. Transfer was arranged to [facility] for ongoing care. Please note medication list below is outpatient medications. See scanned notes for inpatient medication list. Total Time Total Time Spent Total Time Spent (In Minutes): 35 minutes. Coding Level of Care Code 71026 INP/OBS DISCH >30 MIN Diagnoses Respiratory syncytial virus (RSV) B33.8 Acute respiratory failure with hypercapnia J96.02 Myasthenia gravis G70.00 (HFpEF) heart failure with preserved ejection fraction I50.30 Hypomagnesemia E83.42 Microcytic anemia D50.9 CARRIE on CPAP G47.33; Z99.89 Restrictive lung disease J98.4 Atrial fibrillation I48.91 Left sided abdominal pain R10.9 Current chronic use of systemic steroids Z79.52
[2024-11-16] MEDS ORDERED: SODIUM CHLOR 7% 4 ML NEB NEB SCH (19:00)
[2024-11-16] MEDS ORDERED: FORMOTEROL 20 MCG/2 ML VIAL NEB SCH (19:00)
[2024-11-17] MEDS ORDERED: FUROSEMIDE 20 MG TAB PO SCH (09:00)
[2024-11-17] MEDS ORDERED: SULFAMETHOXAZOLE/TRIMETHOPRIM DS 800/160MG TAB PO SCH (09:00)
== END 2024-11-16 16:17 | disposition short-term general hospital (02) | DRG 865 ==
LOC: ED 09:06 → SUATTDRO 14:01 → EDINP 14:01 → 2S 15:22

== ENCOUNTER 2025-01-16 08:37 | Observation (INO) ==
--- NOTE | 2025-01-16 09:37 | XRay Report ---
XR chest 1V portable CLINICAL HISTORY: n/v/d, hypoxia COMPARISON STUDY: 11/16/2024 FINDINGS: Stable median sternotomy wires. Stable cardiomegaly without pulmonary vascular congestion. Stable elevation of the right hemidiaphragm. Stable pulmonary interstitial prominence. Stable hazy op acity at the left base. No pneumothorax seen. IMPRESSION: Stable exam. ACT 112: Negative or not required by law. Electronically signed by: Saurabh Magana M.D. 01/16/2025 9:36 AM
[2025-01-16 09:49] LABS: Basophils # (auto) 0.02 K/uL (0.00-0.20); Basophils % (auto) 0.3 %; Eosinophils # (auto) 0.01 K/uL (0.00-0.50); Eosinophils % (auto) 0.1 %; Hematocrit (blood only) 28.8 % (37.0-47.0); Hemoglobin 8.7 g/dl (12.0-16.0); Immature Granulocytes # (auto) 0.07 K/uL (0.01-0.20); Lymphocytes # (auto) 0.22 K/uL (1.20-3.40); Mean Corpuscular Hemoglobin 27.4 pg (25.0-34.0); Mean Corpuscular Hgb Conc 30.2 g/dL (32.0-36.0); Mean Corpuscular Volume 90.9 fL (80.0-100.0); Mean Platelet Volume 10.4 fL (9.4-12.4); Monocytes # (auto) 0.84 K/uL (0.11-0.59); Monocytes % (auto) 11.5 %; Neutrophils # (auto) 6.13 K/uL (1.40-6.50); Neutrophils % (auto) 84.1 %; Nucleated RBC # (auto) 0.02 K/uL (0.00-0.12); Nucleated RBC % (auto) 0.3 %; Platelet Count 173 K/uL (130-400); RDW Coefficient of Variation 25.2 % (11.5-14.5); RDW Standard Deviation 82.3 fL (36.4-46.3); Red Blood Count 3.17 M/uL (4.20-5.40); White Blood Count 7.29 K/ul (4.8-10.8)
[2025-01-16 09:52] LABS: Albumin Globulin Ratio 2.2 (0.9-2); Albumin Level 4.4 gm/dl (3.4-5.0); BUN Creatinine Ratio 19.2 (10-20); Bilirubin,Total 0.4 mg/dl (0.2-1.0); Calcium 9.3 mg/dl (8.6-10.3); Creatinine Clr Calc Pharmacy 42.6 ml/min; Potassium 3.9 mmol/L (3.5-5.1); Total Protein 6.4 gm/dl (6.0-8.3)
[2025-01-16 09:57] LABS: Troponin I High Sensitivity 18.6 pg/ml (0-14)
[2025-01-16 09:58] LABS: Prothrombin Time 10.8 Seconds (9.0-12.0)
[2025-01-16] MEDS: SODIUM CHLORIDE 0.9% 500 ML IV ONE (10:00)
[2025-01-16] MEDS: ALBUT/IPRATROP 3MG/0.5MG NEB 3 ML VIAL NEB STA (10:00)
[2025-01-16] MEDS: ONDANSETRON INJ 2 MG/ML 2 ML VIAL IV STA (10:01)
--- NOTE | 2025-01-16 10:16 | Emergency Department Note ---
History of Present Illness General Chief complaint: Diarrhea Stated complaint: DIARRHEA, NAUSEA Time Seen by Provider: 01/16/25 09:33 Source: patient Mode of arrival: EMS Limitations: no limitations History of Present Illness Patient is a 74-year-old female with history of atrial fibrillation, chronic respiratory failure on 4 L of nasal cannula, pulmonary fibrosis, myasthenia gravis, HFpEF who presents for diarrhea, nausea, generalized weakness. Symptoms started last night. Multiple episodes of nonbilious nonbloody emesis and loose dark stool. She denies any melena or hematochezia. No sick contacts at home. She is on chronic steroids at baseline but not on any antibiotics. No sick contacts at home. No recent hospitalizations. Denies any fevers, chills, chest pain, shortness of breath, abdominal pain, change in urination. Home Medications Medication Instructions Recorded Confirmed Type atenolol 25 mg tablet 12.5 mg PO BID 08/03/19 01/16/25 History pyridostigmine bromide 180 mg 180 mg PO HS 08/03/19 01/16/25 History tablet,extended release (Mestinon Timespan) pyridostigmine bromide 60 mg 60 mg PO QID 08/03/19 01/16/25 History tablet (Mestinon) sertraline 100 mg tablet 100 mg PO QAM 08/03/19 01/16/25 History epinephrine 0.3 mg/0.3 mL 0.3 mg (0.3 mL) IM Q15M PRN 10/02/21 01/16/25 Rx injection, auto-injector (EpiPen anaphylaxis #2 ea 2-Kyaw) apixaban 5 mg tablet (Eliquis) 5 mg PO BID 12/16/21 01/16/25 History Oxygen Home #1 ea 01/20/22 09/20/24 Rx Auto Titrating CPAP #1 ea 08/13/22 09/20/24 Rx CPAP Supplies #1 ea 08/13/22 09/20/24 Rx azathioprine 50 mg tablet (Imuran) 50 mg PO BID 01/13/23 01/16/25 History prednisone 10 mg tablet 10 mg PO DAILY 07/16/23 01/16/25 History sacubitril 24 mg-valsartan 26 mg 1 tab PO BID 11/18/23 01/16/25 History tablet (Entresto) colestipol 1 gram tablet 2 g PO BID 12/06/23 01/16/25 History cyanocobalamin (vitamin B-12) 1,000 mcg IM MONTHLY 12/09/23 01/16/25 History 1,000 mcg/mL injection solution famotidine 20 mg tablet (Acid 20 mg PO DAILY #90 tabs 05/25/24 01/16/25 Rx Criminal Defense Lawyer (famotidine)) immun glob G 10 gram/50 mL(20 See Rx Instructions subcut 09/20/24 01/16/25 Rx %)-pro-IgA 0-50 mcg/mL .COMPLEX #50 mL subcutaneous soln (Hizentra) teriparatide 20 mcg/dose (560 20 mcg (0.08 mL) subcut DAILY #2.4 10/10/24 01/16/25 Rx mcg/2.24 mL) subcutaneous pen mL injector prednisone 20 mg tablet 20 mg PO DAILY 11/15/24 01/16/25 History sulfamethoxazole 800 1 tab PO 3XWK 11/15/24 01/16/25 History mg-trimethoprim 160 mg tablet (Bactrim DS) levothyroxine 175 mcg tablet 175 mcg PO QAM #30 tabs 12/07/24 01/16/25 Rx amiodarone 200 mg tablet 200 mg PO BID 01/16/25 01/16/25 History immun glob G 1 gram/5mL(20 See Rx Instructions .Route .COMPLEX 01/16/25 01/16/25 History %)-prol-IgA 0-50 mcg/mL subcutaneous syring (Hizentra) Allergies Allergy/AdvReac Type Severity Reaction Status Date / Time propoxyphene Allergy Intermediate muscle Verified 11/15/24 12:33 cramps Elpnuxw-DMW-GwZ Reductase Allergy Mild WEAKNESS Verified 11/15/24 12:33 Inhibitor [Teecmhf-Uzx-Lft Reductase Inhibitor] Past Med/Surg History Problem List (Updated 01/16/25 @ 15:45 by Ronald Jeff MD) Non-ST elevation SC (NSTEMI) (Acute) Acute UTI (urinary tract infection) (Acute) Chronic respiratory failure with hypoxia Steroid dependence Myasthenia gravis Paroxysmal atrial fibrillation Acute kidney injury superimposed on stage 2 chronic kidney disease Volume depletion Gastroenteritis (Acute) Atrial fibrillation with RVR Acute respiratory failure with hypercapnia Current chronic use of systemic steroids Left sided abdominal pain Respiratory failure with hypercapnia Microcytic anemia Hypomagnesemia (Acute) Respiratory syncytial virus (RSV) (Acute) Dyspnea (Acute) Osteoporosis Thoracic back pain Pulmonary hypertension (HFpEF) heart failure with preserved ejection fraction Generalized weakness DVT (deep venous thrombosis) (06/07/13) 2007 ? 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 Owens Sleep apnea cpap Good syndrome Heart palpitations (Chronic) Anxiety (Chronic) Medical History Overactive bladder GERD (gastroesophageal reflux disease) Hypothyroidism Low iron iron infusion 10/2023 ? Pulmonary emboli 2007 ? reason (on coumadin for short time) Myasthenia gravis CHF (congestive heart failure) Atrial fibrillation followed by Dr. Owens>holter monitor device on presently>to be worn until 11/27/23 Sleep apnea cpap Degenerative disc disease Surgical History History of cataract surgery rt/left History of thymectomy History of total hysterectomy with bilateral salpingo-oophorectomy (BSO) History of bilateral tubal ligation History of total right hip replacement History of colonoscopy with polypectomy History of esophagogastroduodenoscopy (EGD) History of cholecystectomy History of tooth extraction History of cardiac cath ? 10+yrs ago @ [facility] [place]--no stents Family History (Updated 12/06/23 @ 15:21 by Migdalia Gunter) Brother Family history of diabetes mellitus Brother Family history of diabetes mellitus Mother Stroke Heart disease Father Leukemia Other Diabetes No family history of adverse response to anesthesia No family history of bleeding disorder Denies family history of Lung disease Asthma Social History Smoking Status: Never smoker Second Hand Exposure: No; Do You Dip or Chew Tobacco: No; Hx Alcohol Use: No Hx Substance Use: No Preferred Language: Tamazight Communication Ability: Effective Visual Impairment: No Limitations Hearing Ability: Normal Senior Civil Engineer Required: No Beliefs That Will Affect Care: Spiritual marital status: Current Living Situation: Alone Current Living Situation Comment: with son current occupational status: retired Feels Safe at Home: Yes Assistive Devices: Glasses, Oxygen - Continuous and Walker Review of Systems See HPI for pertinent positives & negatives. Physical Exam Vital Signs Vital Signs - 24 hr 01/16/25 08:46 01/16/25 08:50 01/16/25 08:51 Temperature 36.7 C Temperature Source Oral Pulse Rate 72 72 Pulse Rate from SpO2 Sensor Pulse Rhythm Regular Respiratory Rate 26 H Respiratory Effort / Characteristics Short of Breath Respiratory Pattern Regular Blood Pressure 148/54 H 148/54 H Blood Pressure Mean 95 85 Blood Pressure Position Semi-fowlers Pulse Oximetry 87 L Oxygen Delivery Method Nasal Cannula Oxygen Flow Rate 4 Sepsis Recent Fever Within 48 Hours No Sepsis New/Unexplained Change in Mental Status No Sepsis Action Taken by Nursing No Action Required 01/16/25 08:51 01/16/25 08:54 01/16/25 09:12 Temperature Temperature Source Pulse Rate 71 72 Pulse Rate from SpO2 Sensor 74 Pulse Rhythm Respiratory Rate 34 H 31 H Respiratory Effort / Characteristics Respiratory Pattern Blood Pressure Blood Pressure Mean Blood Pressure Position Pulse Oximetry 99 97 Oxygen Delivery Method Nasal Cannula Oxygen Flow Rate 6 Sepsis Recent Fever Within 48 Hours Sepsis New/Unexplained Change in Mental Status Sepsis Action Taken by Nursing 01/16/25 09:33 01/16/25 09:39 01/16/25 10:09 Temperature Temperature Source Pulse Rate 79 76 Pulse Rate from SpO2 Sensor 79 76 Pulse Rhythm Respiratory Rate 34 H 36 H Respiratory Effort / Characteristics Respiratory Pattern Blood Pressure Blood Pressure Mean Blood Pressure Position Pulse Oximetry 100 100 100 Oxygen Delivery Method Nasal Cannula Oxygen Flow Rate 6 Sepsis Recent Fever Within 48 Hours Sepsis New/Unexplained Change in Mental Status Sepsis Action Taken by Nursing 01/16/25 10:30 01/16/25 10:30 01/16/25 10:30 Temperature Temperature Source Pulse Rate 87 Pulse Rate from SpO2 Sensor 91 H Pulse Rhythm Respiratory Rate 33 H Respiratory Effort / Characteristics Respiratory Pattern Blood Pressure 114/61 114/61 Blood Pressure Mean 98 98 Blood Pressure Position Pulse Oximetry 99 Oxygen Delivery Method Oxygen Flow Rate Sepsis Recent Fever Within 48 Hours Sepsis New/Unexplained Change in Mental Status Sepsis Action Taken by Nursing 01/16/25 11:00 01/16/25 11:01 01/16/25 11:01 Temperature Temperature Source Pulse Rate 86 Pulse Rate from SpO2 Sensor 78 Pulse Rhythm Respiratory Rate 20 Respiratory Effort / Characteristics Respiratory Pattern Blood Pressure 156/58 H 156/58 H Blood Pressure Mean 90 90 Blood Pressure Position Pulse Oximetry 94 Oxygen Delivery Method Oxygen Flow Rate Sepsis Recent Fever Within 48 Hours Sepsis New/Unexplained Change in Mental Status Sepsis Action Taken by Nursing 01/16/25 11:03 01/16/25 11:33 01/16/25 12:12 Temperature Temperature Source Pulse Rate 84 88 81 Pulse Rate from SpO2 Sensor 83 88 84 Pulse Rhythm Respiratory Rate 26 H 27 H 26 H Respiratory Effort / Characteristics Respiratory Pattern Blood Pressure Blood Pressure Mean Blood Pressure Position Pulse Oximetry 94 98 97 Oxygen Delivery Method Nasal Cannula Oxygen Flow Rate 4 Sepsis Recent Fever Within 48 Hours Sepsis New/Unexplained Change in Mental Status Sepsis Action Taken by Nursing 01/16/25 12:18 01/16/25 12:30 01/16/25 12:30 Temperature Temperature Source Pulse Rate 79 Pulse Rate from SpO2 Sensor 79 Pulse Rhythm Respiratory Rate 36 H Respiratory Effort / Characteristics Respiratory Pattern Blood Pressure 148/88 H 148/88 H Blood Pressure Mean 96 96 Blood Pressure Position Pulse Oximetry 98 Oxygen Delivery Method Nasal Cannula Oxygen Flow Rate 4 Sepsis Recent Fever Within 48 Hours Sepsis New/Unexplained Change in Mental Status Sepsis Action Taken by Nursing 01/16/25 12:33 01/16/25 12:39 01/16/25 12:54 Temperature Temperature Source Pulse Rate 80 80 117 H Pulse Rate from SpO2 Sensor 80 116 H Pulse Rhythm Respiratory Rate 28 H 28 H Respiratory Effort / Characteristics Respiratory Pattern Blood Pressure Blood Pressure Mean Blood Pressure Position Pulse Oximetry 100 99 Oxygen Delivery Method Oxygen Flow Rate Sepsis Recent Fever Within 48 Hours Sepsis New/Unexplained Change in Mental Status Sepsis Action Taken by Nursing 01/16/25 13:00 01/16/25 13:03 01/16/25 13:24 Temperature Temperature Source Pulse Rate 85 84 Pulse Rate from SpO2 Sensor 85 84 Pulse Rhythm Respiratory Rate 26 H 33 H Respiratory Effort / Characteristics Respiratory Pattern Blood Pressure 109/66 Blood Pressure Mean 78 Blood Pressure Position Pulse Oximetry 98 100 Oxygen Delivery Method Nasal Cannula Oxygen Flow Rate 4 Sepsis Recent Fever Within 48 Hours Sepsis New/Unexplained Change in Mental Status Sepsis Action Taken by Nursing 01/16/25 13:35 01/16/25 13:39 01/16/25 14:00 Temperature Temperature Source Pulse Rate 81 75 Pulse Rate from SpO2 Sensor 82 75 Pulse Rhythm Respiratory Rate 30 H 29 H Respiratory Effort / Characteristics Respiratory Pattern Blood Pressure 119/62 Blood Pressure Mean 71 Blood Pressure Position Pulse Oximetry 100 100 Oxygen Delivery Method Nasal Cannula Oxygen Flow Rate 4 Sepsis Recent Fever Within 48 Hours Sepsis New/Unexplained Change in Mental Status Sepsis Action Taken by Nursing 01/16/25 14:00 01/16/25 14:12 01/16/25 14:30 Temperature Temperature Source Pulse Rate 75 Pulse Rate from SpO2 Sensor 75 Pulse Rhythm Respiratory Rate 27 H Respiratory Effort / Characteristics Respiratory Pattern Blood Pressure 140/64 138/81 Blood Pressure Mean 70 111 Blood Pressure Position Pulse Oximetry 100 Oxygen Delivery Method Oxygen Flow Rate Sepsis Recent Fever Within 48 Hours Sepsis New/Unexplained Change in Mental Status Sepsis Action Taken by Nursing 01/16/25 14:45 Temperature Temperature Source Pulse Rate 74 Pulse Rate from SpO2 Sensor 74 Pulse Rhythm Respiratory Rate 28 H Respiratory Effort / Characteristics Respiratory Pattern Blood Pressure Blood Pressure Mean Blood Pressure Position Pulse Oximetry 100 Oxygen Delivery Method Oxygen Flow Rate Sepsis Recent Fever Within 48 Hours Sepsis New/Unexplained Change in Mental Status Sepsis Action Taken by Nursing See below Constitutional WD/WN, vitals as above Eyes PERRL, conjunctivae normal, anicteric sclerae ENMT external ear and nose normal, oropharynx normal Respiratory + labored breathing, + uses accessory muscles, able to speak in complete sentences and + tachypneic Auscultation: + crackles and + wheezes Cardiovascular RRR, no murmur, no edema Gastrointestinal (Abdomen) normal bowel sounds, soft, nontender, no hepatosplenomegaly Musculoskeletal no cyanosis or clubbing, extremities motor strength 5/5 Skin no rashes, warm and dry Course Administered Medications Discontinued Medications Albuterol (Albut/Ipratrop 3mg/0.5mg Neb 3 Ml Vial) 3 ml NEB NOW STA; Protocol Stop: 01/16/25 09:51 Last Admin: 01/16/25 10:00 Dose: 3 ml Documented By: AM Sodium Chloride (Nss) 500 mls @ 0 mls/hr IV .Q0M ONE Stop: 01/16/25 09:52 Last Infusion: 01/16/25 10:30 Dose: Infused Documented By: Admin: 01/16/25 10:00 Dose: 1,000 mls/hr Documented By: AM Ceftriaxone Sodium (Rocephin) 2,000 mg in 50 mls @ 100 mls/hr IV NOW STA Stop: 01/16/25 13:41 Last Infusion: 01/16/25 14:10 Dose: Infused Documented By: Admin: 01/16/25 13:39 Dose: 100 mls/hr Documented By: FERNY Azithromycin (Zithromax) 500 mg in 255 mls @ 127.5 mls/hr IV NOW ONE Stop: 01/16/25 15:11 Last Admin: 01/16/25 14:13 Dose: 127.5 mls/hr Documented By: FERNY Ioversol (Optiray 320 100ml) 94 ml IV ONCE ONE Stop: 01/16/25 10:21 Last Admin: 01/16/25 10:21 Dose: 94 ml Documented By: ANAYELI Ioversol (Optiray 320 125ml) 63 ml IV ONCE ONE Stop: 01/16/25 12:03 Last Admin: 01/16/25 12:02 Dose: 63 ml Documented By: DANYA Methylprednisolone (Methylprednisolone 125 Mg/2 Ml Vial) 60 mg IV NOW STA Stop: 01/16/25 11:02 Last Admin: 01/16/25 11:37 Dose: 60 mg Documented By: FERNY Ondansetron HCl (Ondansetron Inj 2 Mg/Ml 2 Ml Vial) 4 mg IV NOW STA Stop: 01/16/25 09:51 Last Admin: 01/16/25 10:01 Dose: 4 mg Documented By: FERNY Medical Decision Making Differential Diagnosis Gastroenteritis, diverticulitis, SBO, infectious diarrhea, pulmonary fibrosis flare, PE, pneumonia Medical Records Attestation: I reviewed the patient's medical records. Home Medications Current Medication List: was personally reviewed by ia Laboratory Data Attestation: I reviewed the patient's lab results. 01/16/25 09:21 01/16/25 09:21 Lab Results 01/16/25 01/16/25 01/16/25 Range/Units 09:21 09:48 11:31 WBC 7.29 (4.8-10.8) K/ul RBC 3.17 L (4.20-5.40) M/uL Hgb 8.7 L (12.0-16.0) g/dl Hct 28.8 L (37.0-47.0) % MCV 90.9 (80.0-100.0) fL MCH 27.4 (25.0-34.0) pg MCHC 30.2 L (32.0-36.0) g/dL RDW Std Deviation 82.3 H (36.4-46.3) fL RDW Coeff of [place] 25.2 H (11.5-14.5) % Plt Count 173 (130-400) K/uL MPV 10.4 (9.4-12.4) fL Immature Gran % (Auto) 1.0 % Neut % (Auto) 84.1 % Lymph % (Auto) 3.0 % [place] % (Auto) 11.5 % Eos % (Auto) 0.1 % Baso % (Auto) 0.3 % Neut # (Auto) 6.13 (1.40-6.50) K/uL Lymph # (Auto) 0.22 L (1.20-3.40) K/uL [place] # (Auto) 0.84 H (0.11-0.59) K/uL Eos # (Auto) 0.01 (0.00-0.50) K/uL Baso # (Auto) 0.02 (0.00-0.20) K/uL Immature Gran # (Auto) 0.07 (0.01-0.20) K/uL Absolute Nucleated RBC 0.02 (0.00-0.12) K/uL Nucleated RBC % (auto) 0.3 % Polychromasia 1+ Anisocytosis Present Tear Drop Cells 2+ Ovalocytes 1+ Stomatocytes 2+ PT 10.8 (9.0-12.0) Seconds INR 1.0 (0.9-1.1) Sodium 141 (136-145) mmol/L Potassium 3.9 (3.5-5.1) mmol/L Chloride 105 (98-107) mmol/L Carbon Dioxide 29 (21-32) mmol/L Anion Gap 7 (3-11) BUN 25 H (6-23) mg/dl Creatinine 1.30 H (0.6-1.2) mg/dl Est Cr Clr Drug Dosing 42.6 ml/min eGFR 43.42 BUN/Creatinine Ratio 19.2 (10-20) Glucose 112 H (70-99(Fasting)) mg/dl Calcium 9.3 (8.6-10.3) mg/dl Total Bilirubin 0.4 (0.2-1.0) mg/dl AST 16 (13-39) U/L ALT 16 (7-52) U/L Alkaline Phosphatase 42 (34-104) U/L Troponin I High Sens 18.6 H (0-14) pg/ml Total Protein 6.4 (6.0-8.3) gm/dl Albumin 4.4 (3.4-5.0) gm/dl Globulin 2.0 L (2.5-4.0) gm/dl Albumin/Globulin Ratio 2.2 H (0.9-2) Lipase 37 (11-82) U/L Urine Color Dark Yellow Urine Appearance Clear (Clear) Urine pH 5.5 (4.5-7.5) Ur Specific [place] 1.029 (1.000-1.030) Urine Protein 1+ H (Negative) Urine Glucose (UA) Negative (Negative) Urine Ketones Trace H (Negative) Urine Blood 1+ H (Negative) Urine Nitrite Positive A (Negative) Urine Bilirubin Negative (Negative) Urine Urobilinogen Negative (Negative) Ur Leukocyte Esterase 1+ H (Negative) Urine WBC (Auto) 11-20 H (0-5) /hpf Urine RBC (Auto) 0-2 (0-2) /hpf U Hyaline Cast (Auto) 0-2 (0-2) /lpf U Epithel Cells (Auto) 0-2 (0-2) /hpf Urine Bacteria (Auto) 2+ H (None Seen) Adenovirus (PCR) Not Detected (NotDetected) B. pertussis DNA (PCR) Not Detected (NotDetected) B.parapertussis DNA PCR Not Detected (NotDetected) C. pneumoniae DNA (PCR) Not Detected (NotDetected) Coronavirus OC43 (PCR) Not Detected (NotDetected) Coronavirus HKU1 (PCR) Not Detected (NotDetected) Coronavirus 229E (PCR) Not Detected (NotDetected) SARS-CoV-2 (PCR) Not Detected (NotDetected) Coronavirus NL63 (PCR) Not Detected (NotDetected) Human Metapneumovir PCR Not Detected (NotDetected) Influenza Type A (PCR) Not Detected (NotDetected) Influenza Type B (PCR) Not Detected (NotDetected) M. pneumoniae (PCR) Not Detected (NotDetected) Parainfluenza 1 (PCR) Not Detected (NotDetected) Parainfluenza 2 (PCR) Not Detected (NotDetected) Parainfluenza 3 (PCR) Not Detected (NotDetected) Parainfluenza 4 (PCR) Not Detected (NotDetected) RSV (PCR) Not Detected (NotDetected) Entero/Rhino (PCR) Not Detected (NotDetected) Imaging Data Radiologist's Impression: Chest X-Ray 01/16/25 08:57 XR chest 1V portable CLINICAL HISTORY: n/v/d, hypoxia COMPARISON STUDY: 11/16/2024 FINDINGS: Stable median sternotomy wires. Stable cardiomegaly without pulmonary vascular congestion. Stable elevation of the right hemidiaphragm. Stable pulmonary interstitial prominence. Stable hazy opacity at the left base. No pneumothorax seen. IMPRESSION: Stable exam. ACT 112: Negative or not required by law. Electronically signed by: Saurabh Magana M.D. 01/16/2025 9:36 AM Abdomen/Pelvis CT 01/16/25 09:[address] WITH IV CONTRAST CT DOSE: 1522.35 mGy.cm HISTORY: abdominal pain/ N/V TECHNIQUE: Multiaxial CT images of the abdomen and pelvis were performed following the IV administration of 90 cc of Optiray, A dose lowering technique was utilized adhering to the principles of ALARA. COMPARISON STUDY: 11/15/2024 FINDINGS: ABDOMEN: Gallbladder is surgically absent. Liver, spleen, pancreas, and adrenal glands are unremarkable. Kidneys show no hydronephrosis or calculi. There are scattered atherosclerotic calcifications. No abdominal aortic aneurysm. Pelvis: Uterus is absent. No adnexal mass. Urinary bladder is nondistended. There is moderate sigmoid diverticulosis. No acute diverticulitis. There is no significant retained stool. No bowel inflammation or obstruction seen. No free fluid, free air, or abscess. No enlarged adenopathy. Osseous structures: There is stable height loss at multiple lower thoracic vertebral bodies. Stable spinal degenerative changes. IMPRESSION: No acute findings. ACT 112: Negative or not required by law. The above report was generated using voice recognition software. It may contain grammatical, syntax or spelling errors. Electronically signed by: Saurabh Magana M.D. 01/16/2025 10:37 AM Chest CTA 01/16/25 11:16 CT angio chest PE protocol CT DOSE: 840.65 mGy.cm HISTORY: PE. TECHNIQUE: Multiple CTA images of the chest were obtained after the intravenous administration of 60 ml Optiray. Coronal and sagittal MIPS were obtained from the axial data set and were submitted for review. All measurements were obtained according to NASCET criteria. A dose lowering technique was utilized adhering to the principles of ALARA. COMPARISON STUDY: 08/26/2024 FINDINGS: There is stable scarring most prominent in the upper lung lobes. There is no pulmonary consolidation or pleural effusion. No pneumothorax. There is residual fluid in the mildly dilated esophagus, reduced esophageal motility versus gastroesophageal reflux. No pericardial effusion. No enlarged adenopathy. No thoracic aortic dissection or aneurysm. There is spray and motion artifact. No pulmonary embolism seen. There is stable height loss at multiple thoracic vertebral bodies. IMPRESSION: No pulmonary embolism seen. Otherwise as described. ACT 112: Negative or not required by law. The above report was generated using voice recognition software. It may contain grammatical, syntax or spelling errors. Electronically signed by: Saurabh Magana M.D. 01/16/2025 12:35 PM ECG Data Attestation: I personally reviewed and interpreted this ECG as follows: Indication: + SOB/dyspnea Rate (beats per minute): 73 Rhythm: + normal sinus ECG Intervals/blocks: + Normal QRS, + Normal [place] and + Normal QT-c ECG ST segments: + Nonspecific ST abnormalities Change: no significant change (11/16/2024) Blood Pressure Blood Pressure Findings: Normal blood pressure MDM Narrative Patient is a 74-year-old female with history as seen above who presents with nausea, vomiting, diarrhea and mild abdominal pain. Afebrile here in the ED. She is tachypneic with a respiratory rate of 28 however stable on her home 4 L of nasal cannula. Afebrile nontoxic appearing with a nonperitoneal abdominal exam. No leukocytosis or bandemia noted. CMP shows a mild elevation in creatinine. IV fluids were given here in the ED. Troponin is slightly elevated without any concerning EKG changes. This is likely secondary to demand in the setting of her ongoing GI symptoms. CT of the abdomen and pelvis was ordered and nonconcerning. CT of the chest shows no PE and chronic fibrosis changes. But because of her chronic immunosuppression I am concerne for infectious diarrheal illness. Stool cultures and C. difficile testing were ordered. Antibiotics were also ordered as well. UA consistent with infection. Will be covered with the IV ceftriaxone. Patient stable for admission to hospitalist service. Impression & Plan Gastroenteritis, Restrictive lung disease, Acute UTI (urinary tract infection), Non-ST elevation SC (NSTEMI) Admit Discharge Plan Visit Data Chief Complaint: Diarrhea Stated Complaint: DIARRHEA, NAUSEA ED Provider: Ronald Jeff Discharge Problem: Gastroenteritis, Restrictive lung disease, Acute UTI (urinary tract infection), Non-ST elevation SC (NSTEMI) Forms Stand Alone Forms: [facility] Prescriptions Prescriptions: No Action epinephrine [EpiPen 2-Kyaw] 0.3 mg/0.3 mL auto-injector 0.3 mg IM Q15M PRN (Reason: anaphylaxis) Qty: 2 3RF Rx Instructions: For weekly infusions (DME) Oxygen Home Liters Per Minute See Rx Instructions .Route Qty: 1 0RF Rx Instructions: Discontinue Oxygen famotidine [Acid Criminal Defense Lawyer (famotidine)] 20 mg tablet 20 mg PO DAILY Qty: 90 2RF Rx Instructions: Verified w/ Pharmacy this was shipped out on 11/2024 x90 day supply Hizentra 10 gram/50 mL (20 %) solution See Rx Instructions SUBCUT .COMPLEX Qty: 50 11RF Rx Instructions: 11 gm subcut every week (Pt does 10gm w/ 1gm syringe) APPROVED 09/20/24-09/20/25 [id number] teriparatide 20 mcg/dose (600mcg/2.4mL) pen injector 20 mcg subcut DAILY Qty: 2.4 11RF Rx Instructions: Unable to verify this medication at this date/time. levothyroxine 175 mcg tablet 175 mcg PO QAM Qty: 30 2RF Eliquis 5 mg tablet 5 mg PO BID (DME) CPAP Supplies Misc See Rx Instructions .MEDSUPPLY Qty: 1 0RF Rx Instructions: CPAP supplies. G47.33 (DME) Auto Titrating CPAP Misc See Rx Instructions .MEDSUPPLY Qty: 1 0RF Rx Instructions: Auto PAP with 4-16cm H20. Lifetime usage. G47.33 prednisone 10 mg tablet 10 mg PO DAILY Patient Comments: 20mg qam/10mg at lunch time Rx Instructions: Take 10mg w/ 20mg to equal 30mg by mouth daily. pyridostigmine bromide [Mestinon] 60 mg tablet 60 mg PO QID pyridostigmine bromide [Mestinon Timespan] 180 mg tablet extended release 180 mg PO HS sertraline 100 mg tablet 100 mg PO QAM atenolol 25 mg tablet 12.5 mg PO BID azathioprine [Imuran] 50 mg tablet 50 mg PO BID Patient Comments: Pt reports she takes 50mg in AM 50 MG in PM colestipol 1 gram tablet 2 g PO BID cyanocobalamin (vitamin B-12) 1,000 mcg/mL Solution 1,000 mcg IM MONTHLY prednisone 20 mg tablet 20 mg PO DAILY Rx Instructions: Take 20mg w/ 10mg to equal 30mg by mouth daily. sulfamethoxazole-trimethoprim [Bactrim DS] 800-160 mg tablet 1 tab PO 3XWK Rx Instructions: 1 tab orally 1 tab on Efgeml-Rwfxmhuap-Xngrsy; Start Date 12/12/24 x70 day supply Entresto 24-26 mg Tablet 1 tab PO BID Rx Instructions: Verified w/ Pharmacy this was shipped out on 01/09/2025. Pt may not have started this medication yet. amiodarone 200 mg tablet 200 mg PO BID Rx Instructions: Verified w/ Pharmacy this was shipped out on 01/15/25. Pt may not have started this medication yet Hizentra 1 gram/5 mL (20 %) syringe See Rx Instructions .ROUTE .COMPLEX Rx Instructions: 11 gm subcut every week (Pt does 10gm w/ 1gm syringe) Referrals Referrals: Deng Lezama DO [Primary Care Provider] -
[2025-01-16] MEDS: OPTIRAY 320 100ml IV ONE (10:21)
[2025-01-16 10:24] LABS: Anisocytosis Present; Ovalocytes 1+; Polychromasia 1+; Stomatocytes 2+; Tear Drop Cells 2+
--- NOTE | 2025-01-16 10:39 | CT Scan Report ---
ABDOMEN AND PELVIS CT WITH IV CONTRAST CT DOSE: 1522.35 mGy.cm HISTORY: abdominal pain/ N/V TECHNIQUE: Multiaxial CT images of the abdomen and pelvis were performed following the IV administrat ion of 90 cc of Optiray, A dose lowering technique was utilized adhering to the principles of ALARA. COMPARISON STUDY: 11/15/2024 FINDINGS: ABDOMEN: Gallbladder is surgically absent. Liver, spleen, pancreas, and adrenal glands are unremarkab le. Kidneys show no hydronephrosis or calculi. There are scattered atherosclerotic calcifications. No abdominal aortic aneurysm. Pelvis: Uterus is absent. No adnexal mass. Urinary bladder is nondistended. There is moderate sigmoid diverticulosis. No acute diverticulitis. There is no significant retained stool. No bowel inflammati on or obstruction seen. No free fluid, free air, or abscess. No enlarged adenopathy. Osseous structures: There is stable height loss at multiple lower thoracic vertebral bodies. Stable s cresencio degenerative changes. IMPRESSION: No acute findings. ACT 112: Negative or not required by law. The above report was generated using voice recognition software. It may contain grammatical, syntax o r spelling errors. Electronically signed by: Saurabh Magana M.D. 01/16/2025 10:37 AM
[2025-01-16 10:48] LABS: Adenovirus PCR Not Detected (NotDetected); Bordetella parapertussis PCR Not Detected (NotDetected); Bordetella pertussis PCR Not Detected (NotDetected); Chlamydia pneumoniae PCR Not Detected (NotDetected); Coronavirus 229E PCR Not Detected (NotDetected); Coronavirus CoV-2 (COVID19)PCR Not Detected (NotDetected); Coronavirus HKU1 PCR Not Detected (NotDetected); Coronavirus NL63 PCR Not Detected (NotDetected); Coronavirus OC43PCR Not Detected (NotDetected); Human Metapneumovirus PCR Not Detected (NotDetected); Influenza A PCR Not Detected (NotDetected); Influenza B PCR Not Detected (NotDetected); Mycoplasma pneumoniae PCR Not Detected (NotDetected); Parainfluenza Virus 1 PCR Not Detected (NotDetected); Parainfluenza Virus 2 PCR Not Detected (NotDetected); Parainfluenza Virus 3 PCR Not Detected (NotDetected); Parainfluenza Virus 4 PCR Not Detected (NotDetected); Respiratory Syncytial VirusPCR Not Detected (NotDetected); Rhinovirus/Enterovirus PCR Not Detected (NotDetected)
[2025-01-16] MEDS: methylPREDNISolone 125 MG/2 ML VIAL IV STA (11:37)
[2025-01-16] MEDS: OPTIRAY 320 125ml IV ONE (12:02)
[2025-01-16 12:14] LABS: Appearance Urine Clear (Clear); Bacteria Urine Automated 2+ (None Seen); Bilirubin Urine Negative (Negative); Blood Urine 1+ (Negative); Cast Urine Automated 0-2 /lpf (0-2); Color Urine Dark Yellow; Epithelial Cell Urine Auto 0-2 /hpf (0-2); Glucose Urine UA Negative (Negative); Ketones Urine Trace (Negative); Leukocyte Esterase Urine 1+ (Negative); Nitrite Urine Positive (Negative); Protein Urine 1+ (Negative); RBC Urine Automated 0-2 /hpf (0-2); Specific Gravity Urine 1.029 (1.000-1.030); Urobilinogen Urine Negative (Negative); pH Urine 5.5 (4.5-7.5)
--- NOTE | 2025-01-16 12:37 | CT Scan Report ---
CT angio chest PE protocol CT DOSE: 840.65 mGy.cm HISTORY: PE. TECHNIQUE: Multiple CTA images of the chest were obtained after the intravenous administration of 60 ml Optiray. Coronal and sagittal MIPS were obtained from the axial data set and were submitted for r eview. All measurements were obtained according to NASCET criteria. A dose lowering technique was ut ilized adhering to the principles of ALARA. COMPARISON STUDY: 08/26/2024 FINDINGS: There is stable scarring most prominent in the upper lung lobes. There is no pulmonary cons olidation or pleural effusion. No pneumothorax. There is residual fluid in the mildly dilated esophag us, reduced esophageal motility versus gastroesophageal reflux. No pericardial effusion. No enlarged adenopathy. No thoracic aortic dissection or aneurysm. There is spray and motion artifact. No pulmona ry embolism seen. There is stable height loss at multiple thoracic vertebral bodies. IMPRESSION: No pulmonary embolism seen. Otherwise as described. ACT 112: Negative or not required by law. The above report was generated using voice recognition software. It may contain grammatical, syntax o r spelling errors. Electronically signed by: Saurabh Magana M.D. 01/16/2025 12:35 PM
[2025-01-16] MEDS: cefTRIAXone SODIUM 2,000 MG/50 ML BAG IV STA (13:39)
[2025-01-16] MEDS: AZITHROMYCIN 500 MG/255 ML BAG IV ONE (14:13)
--- NOTE | 2025-01-16 14:42 | History & Physical Report ---
Date of Service January 16, 2025 Assessment & Plan (1) Gastroenteritis: Plan: Suspected viral etiology. (2) Volume depletion: Plan: IV fluids. Monitor intake and output (3) Acute kidney injury superimposed on stage 2 chronic kidney disease: Plan: Monitor urine output. Monitor intake and output. Serial labs (4) Paroxysmal atrial fibrillation: Plan: Telemetry. Currently in normal sinus rhythm. Continue atenolol and Eliquis (5) Myasthenia gravis: Plan: Steroid-dependent. Intravenous hydrocortisone for now then eventual switch back to her usual oral prednisone dosing. Continue Mestinon (6) Steroid dependence: Plan: Intravenous hydrocortisone for now (7) Chronic respiratory failure with hypoxia: Plan: Known interstitial lung disease. Continue oxygen per nasal cannula to maintain saturation greater than 90% Plan OT and PT evaluations when appropriate. Hopeful discharge back to home yet this week History of Present Illness Chief Complaint: malaise, nausea, vomiting, watery diarrhea Primary Care Provider: Deng Lezama DO 74-year-old white female who developed symptoms of viral gastroenteritis last evening with nausea vomiting and diarrhea. She denies hematemesis melena or hematochezia. No other family members are ill. She denies chest pain. She denies fever. No recent travels Allergies Allergy/AdvReac Type Severity Reaction Status Date / Time propoxyphene Allergy Intermediate muscle Verified 11/15/24 12:33 cramps Rfszzcw-SFE-AsI Reductase Allergy Mild WEAKNESS Verified 11/15/24 12:33 Inhibitor [Nlqkzmv-Khw-Ijd Reductase Inhibitor] Home Medications Medication Instructions Recorded Confirmed Type atenolol 25 mg tablet 12.5 mg PO BID 08/03/19 01/16/25 History pyridostigmine bromide 180 mg 180 mg PO HS 08/03/19 01/16/25 History tablet,extended release (Mestinon Timespan) pyridostigmine bromide 60 mg 60 mg PO QID 08/03/19 01/16/25 History tablet (Mestinon) sertraline 100 mg tablet 100 mg PO QAM 08/03/19 01/16/25 History epinephrine 0.3 mg/0.3 mL 0.3 mg (0.3 mL) IM Q15M PRN 10/02/21 01/16/25 Rx injection, auto-injector (EpiPen anaphylaxis #2 ea 2-Kyaw) apixaban 5 mg tablet (Eliquis) 5 mg PO BID 12/16/21 01/16/25 History Oxygen Home #1 ea 01/20/22 09/20/24 Rx Auto Titrating CPAP #1 ea 08/13/22 09/20/24 Rx CPAP Supplies #1 ea 08/13/22 09/20/24 Rx azathioprine 50 mg tablet (Imuran) 50 mg PO BID 01/13/23 01/16/25 History prednisone 10 mg tablet 10 mg PO DAILY 07/16/23 01/16/25 History sacubitril 24 mg-valsartan 26 mg 1 tab PO BID 11/18/23 01/16/25 History tablet (Entresto) colestipol 1 gram tablet 2 g PO BID 12/06/23 01/16/25 History cyanocobalamin (vitamin B-12) 1,000 mcg IM MONTHLY 12/09/23 01/16/25 History 1,000 mcg/mL injection solution famotidine 20 mg tablet (Acid 20 mg PO DAILY #90 tabs 05/25/24 01/16/25 Rx Nude Model (famotidine)) immun glob G 10 gram/50 mL(20 See Rx Instructions subcut 09/20/24 01/16/25 Rx %)-pro-IgA 0-50 mcg/mL .COMPLEX #50 mL subcutaneous soln (Hizentra) teriparatide 20 mcg/dose (560 20 mcg (0.08 mL) subcut DAILY #2.4 10/10/24 01/16/25 Rx mcg/2.24 mL) subcutaneous pen mL injector prednisone 20 mg tablet 20 mg PO DAILY 11/15/24 01/16/25 History sulfamethoxazole 800 1 tab PO 3XWK 11/15/24 01/16/25 History mg-trimethoprim 160 mg tablet (Bactrim DS) levothyroxine 175 mcg tablet 175 mcg PO QAM #30 tabs 12/07/24 01/16/25 Rx amiodarone 200 mg tablet 200 mg PO BID 01/16/25 01/16/25 History immun glob G 1 gram/5mL(20 See Rx Instructions .Route .COMPLEX 01/16/25 01/16/25 History %)-prol-IgA 0-50 mcg/mL subcutaneous syring (Hizentra) Past Med/Surg History Problem List (Updated 01/16/25 @ 14:41 by Drake Tucker MD) Chronic respiratory failure with hypoxia Steroid dependence Myasthenia gravis Paroxysmal atrial fibrillation Acute kidney injury superimposed on stage 2 chronic kidney disease Volume depletion Gastroenteritis Atrial fibrillation with RVR Acute respiratory failure with hypercapnia Current chronic use of systemic steroids Left sided abdominal pain Respiratory failure with hypercapnia Microcytic anemia Hypomagnesemia (Acute) Respiratory syncytial virus (RSV) (Acute) Dyspnea (Acute) Osteoporosis Thoracic back pain Pulmonary hypertension (HFpEF) heart failure with preserved ejection fraction Generalized weakness DVT (deep venous thrombosis) (06/07/13) 2007 ? 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 Owens Sleep apnea cpap Good syndrome Heart palpitations (Chronic) Anxiety (Chronic) Medical History Overactive bladder GERD (gastroesophageal reflux disease) Hypothyroidism Low iron iron infusion 10/2023 ? Pulmonary emboli 2007 ? reason (on coumadin for short time) Myasthenia gravis CHF (congestive heart failure) Atrial fibrillation followed by Dr. Owens>holter monitor device on presently>to be worn until 11/27/23 Sleep apnea cpap Degenerative disc disease Surgical History History of cataract surgery rt/left History of thymectomy History of total hysterectomy with bilateral salpingo-oophorectomy (BSO) History of bilateral tubal ligation History of total right hip replacement History of colonoscopy with polypectomy History of esophagogastroduodenoscopy (EGD) History of cholecystectomy History of tooth extraction History of cardiac cath ? 10+yrs ago @ [facility] [place]--no stents Family History (Updated 12/06/23 @ 15:21 by Migdalia Gunter) Brother Family history of diabetes mellitus Brother Family history of diabetes mellitus Mother Stroke Heart disease Father Leukemia Other Diabetes No family history of adverse response to anesthesia No family history of bleeding disorder Denies family history of Lung disease Asthma Social History Smoking Status: Never smoker Second Hand Exposure: No; Do You Dip or Chew Tobacco: No; Hx Alcohol Use: No Hx Substance Use: No Preferred Language: Vietnamese Communication Ability: Effective Visual Impairment: No Limitations Hearing Ability: Normal Threader Operator Required: No Beliefs That Will Affect Care: Spiritual marital status: Current Living Situation: Alone Current Living Situation Comment: with son current occupational status: retired Feels Safe at Home: Yes Assistive Devices: Glasses, Oxygen - Continuous and Walker Review of Systems 2 Review of Systems: Constitutionalno fever or chills ENTno blurred vision, no double vision, no epistaxis, no sore throat Respiratoryno cough, no wheezing, no shortness of breath Cardiacno palpitations, no chest pain, no syncope GInausea vomiting and diarrhea started last evening. No hematemesis melena or hematochezia. GUno urinary retention, no urinary incontinence, no dysuria, no hematuria Musculoskeletalno joint pain, no muscle tenderness Skinno bruising, no rashes, no pruritus Neurono isolated weakness, no paresthesia Psychno depression, no anxiety Physical Exam 2 Physical Exam: General-alert and oriented x3, no fever, no chills. Appears ill HEENT-head atraumatic and normocephalic, pupils equal and reactive to light, extraocular muscles intact Neck-no lymphadenopathy or thyromegaly, trachea midline Chest-clear to auscultation. No rales, wheezing or rhonchi Cardiac-regular rate and rhythm, normal S1 and S2 Abdomen-normal bowel sounds, no hepatosplenomegaly Skinflushed Extremities-no cyanosis, clubbing, or edema Neuro-cranial nerves II through XII intact, motor and sensory function within normal limits, strength symmetrical, no focal deficits Psych-normal affect, normal mood Results & Data Results & Data Vital Signs (Past 12 Hours) Vital Signs Temp Pulse Resp BP Pulse Ox O2 Del Method O2 Flow Rate 01/16/25 14:00 140/64 01/16/25 14:00 75 29 H 100 Nasal Cannula 4 01/16/25 13:39 81 30 H 100 01/16/25 13:35 119/62 01/16/25 13:24 84 33 H 100 Nasal Cannula 4 01/16/25 13:03 85 26 H 98 01/16/25 13:00 109/66 01/16/25 12:54 117 H 28 H 99 01/16/25 12:39 80 01/16/25 12:33 80 28 H 100 01/16/25 12:30 148/88 H 01/16/25 12:30 148/88 H 01/16/25 12:18 79 36 H 98 Nasal Cannula 4 01/16/25 12:12 81 26 H 97 01/16/25 11:33 88 27 H 98 01/16/25 11:03 84 26 H 94 Nasal Cannula 4 01/16/25 11:01 156/58 H 01/16/25 11:01 156/58 H 01/16/25 11:00 86 20 94 01/16/25 10:30 87 33 H 99 01/16/25 10:30 114/61 01/16/25 10:30 114/61 01/16/25 10:09 76 36 H 100 01/16/25 09:39 79 34 H 100 01/16/25 09:33 100 Nasal Cannula 6 01/16/25 09:12 72 31 H 01/16/25 08:54 97 Nasal Cannula 6 01/16/25 08:51 71 34 H 99 01/16/25 08:51 72 01/16/25 08:50 36.7 C 72 26 H 148/54 H 87 L Nasal Cannula 4 01/16/25 08:46 148/54 H Laboratory Results 01/16/25 09:21 01/16/25 09:21 Code Status & VTE Plan Code Status Full code PG Care Time/CCT Total # of Minutes Spent Total Time Spent with Patient: Total time spent is greater than 50% in coordination of care (as documented) at patient's floor/unit and/or counseling patient: Coding Level of Care Code 93411 INT INP/OBS CARE 3/75MIN Diagnoses Gastroenteritis K52.9 Volume depletion E86.9 Acute kidney injury superimposed on stage 2 chronic kidney disease N17.9; N18.2 Paroxysmal atrial fibrillation I48.0 Myasthenia gravis G70.00 Steroid dependence F19.20 Chronic respiratory failure with hypoxia J96.11
[2025-01-16] MEDS ORDERED: ONDANSETRON INJ 2 MG/ML 2 ML VIAL IV PRN (17:09)
[2025-01-16] MEDS ORDERED: ACETAMINOPHEN 1,000 MG/100 ML VIAL IV PRN (17:09)
[2025-01-16] MEDS ORDERED: HYDROCORTISONE SOD SUCCINATE 100 MG/2 ML VIAL IV SCH (17:09)
[2025-01-16] MEDS: SODIUM CHLORIDE 0.9% 1,000 ML IV SCH (17:55)
[2025-01-16] MEDS: METOCLOPRAMIDE HCL INJ 5 MG/ML 2 ML VIAL IV SCH (17:55)
[2025-01-16] MEDS: pyRIDostigmine bromide 60 MG TAB PO SCH (19:09)
[2025-01-16] MEDS: HYDROCORTISONE SOD 25 MG in SYRINGE 0 ML IV SCH (19:10)
[2025-01-16] MEDS: COLESTIPOL HCL 1 GM TAB PO SCH (20:08)
[2025-01-16] MEDS ORDERED: PYRIDOSTIGMINE SUSTAINED REL 180 MG TABCR PO SCH (21:00)
[2025-01-16] MEDS: VALSARTAN/SACUBITRIL 26/24MG TAB PO SCH (21:42)
[2025-01-16] MEDS: APIXABAN 5 MG TABLET PO SCH (21:42)
[2025-01-16] MEDS: ATENOLOL 25 MG TABLET PO SCH (21:42)
[2025-01-16] MEDS: AMIODARONE 200 MG TAB PO SCH (21:42)
[2025-01-16] MEDS: azaTHIOprine 50 MG TAB PO SCH (21:43)
[2025-01-16] MEDS: PYRIDOSTIGMINE SUSTAINED REL 180 MG TABCR PO SCH (22:45)
--- NOTE | 2025-01-17 05:47 | Electrocardiogram Report ---
Test Reason : Blood Pressure : */* mmHG Vent. Rate : 73 BPM Atrial Rate : 73 BPM P-R Int : 136 ms QRS Dur : 76 ms QT Int : 382 ms P-R-T Axes : -2 -5 59 degrees QTcB Int : 420 ms Normal sinus rhythm Nonspecific ST and T wave abnormality Abnormal ECG When compared with ECG of 16-Nov-2024 00:29, Sinus rhythm has replaced Atrial fibrillation Vent. rate has decreased by 66 bpm Confirmed by Rufino Nair ([id number]) on 01/17/2025 5:47:12 AM Referred By: REFERRED SELF Confirmed By: Rufino Nair
[2025-01-17 06:20] LABS: Basophils # (auto) 0.01 K/uL (0.00-0.20); Basophils % (auto) 0.2 %; Hematocrit (blood only) 26.8 % (37.0-47.0); Hemoglobin 8.1 g/dl (12.0-16.0); Immature Granulocytes # (auto) 0.07 K/uL (0.01-0.20); Immature Granulocytes % (auto) 1.1 %; Lymphocytes # (auto) 0.09 K/uL (1.20-3.40); Lymphocytes % (auto) 1.4 %; Mean Corpuscular Hemoglobin 27.4 pg (25.0-34.0); Mean Corpuscular Hgb Conc 30.2 g/dL (32.0-36.0); Mean Corpuscular Volume 90.5 fL (80.0-100.0); Mean Platelet Volume 10.2 fL (9.4-12.4); Monocytes # (auto) 0.57 K/uL (0.11-0.59); Neutrophils # (auto) 5.61 K/uL (1.40-6.50); Neutrophils % (auto) 88.3 %; Platelet Count 155 K/uL (130-400); RDW Coefficient of Variation 25.2 % (11.5-14.5); RDW Standard Deviation 81.6 fL (36.4-46.3); Red Blood Count 2.96 M/uL (4.20-5.40); White Blood Count 6.35 K/ul (4.8-10.8)
[2025-01-17] MEDS: LEVOTHYROXINE SODIUM 175 MCG TABLET PO SCH (06:29)
[2025-01-17 06:47] LABS: Anisocytosis Present; Polychromasia 2+; Tear Drop Cells 1+
[2025-01-17 07:08] LABS: BUN Creatinine Ratio 16.8 (10-20); Calcium 8.5 mg/dl (8.6-10.3); Creatinine Clr Calc Pharmacy 58.5 ml/min; Potassium 4.7 mmol/L (3.5-5.1)
[2025-01-17] MEDS: SERTRALINE HCL 100 MG TABLET PO SCH (08:06)
[2025-01-17] MEDS: cefTRIAXone SODIUM 2,000 MG/50 ML BAG IV SCH (13:17)
[2025-01-17] MEDS: SIMETHICONE 40 MG/0.6 ML 30ML PO ONE (17:24)
[2025-01-17 17:25] LABS: Hematocrit (blood only) 27.9 % (37.0-47.0); Hemoglobin 8.4 g/dl (12.0-16.0)
[2025-01-17 17:38] LABS: Iron 43 mcg/dl (35-150); Total Iron Binding Cap Calc 225 mcg/dl (250-450); Transferrin 161 mg/dl (200-360); Transferrin (FE) Percent Satur 19 % (15-50)
[2025-01-17 17:41] LABS: Adenovirus F 40/41 PCR Not Detected (NotDetected); Astrovirus PCR Not Detected (NotDetected); Campylobacter PCR Not Detected (NotDetected); Cryptosporidium PCR Not Detected (NotDetected); Cyclospora cayetanensis PCR Not Detected (NotDetected); Entamoeba histolytica PCR Not Detected (NotDetected); Enteroaggregative E.coli(EAEC) Not Detected (NotDetected); Enteropathogenic E.coli (EPEC) Not Detected (NotDetected); Enterotoxigenic E.coli (ETEC) Not Detected (NotDetected); Giardia lamblia PCR Not Detected (NotDetected); Norovirus GI/GII PCR Not Detected (NotDetected); Plesiomonas shigelloides PCR Not Detected (NotDetected); Rotavirus A PCR Not Detected (NotDetected); Salmonella PCR Not Detected (NotDetected); Sapovirus PCR Not Detected (NotDetected); Shiga-like Toxin E.coli (STEC) Not Detected (NotDetected); Shigella/Enteroinvasive E.coli Not Detected (NotDetected); Vibrio cholerae PCR Not Detected (NotDetected); Vibrio species PCR Not Detected (NotDetected); Yersinia enterocolitica PCR Not Detected (NotDetected)
[2025-01-17 18:55] LABS: Cdiff Toxin B Gene (2yr or >) Positive Cdiff Gene (Neg)
[2025-01-17 18:56] LABS: Cdiff Antigen Positive; Cdiff Toxin A+B Negative Cdiff Toxin (Negative)
--- NOTE | 2025-01-17 21:19 | Hospitalist Progress Note ---
Date of Service January 17, 2025 Assessment & Plan (1) Gastroenteritis: Plan: Suspected viral etiology. awaiting stool studies. Patient still with diarrhea but frequency has improved. ordering repeat hemoglobin as there has been a drop in hemoglobin from admission which could be dilutional (2) Volume depletion: Plan: IV fluids. Monitor intake and output (3) Acute kidney injury superimposed on stage 2 chronic kidney disease: Plan: Monitor urine output. Monitor intake and output. Serial labs resolved with IVF will hold IVF, continue to hold diuretics in setting of diarrhea (4) Paroxysmal atrial fibrillation: Plan: Telemetry. Currently in normal sinus rhythm. Continue atenolol and Eliquis (5) Myasthenia gravis: Plan: Steroid-dependent. Intravenous hydrocortisone for now then eventual switch back to her usual oral prednisone dosing. Continue Mestinon (6) Steroid dependence: Plan: Intravenous hydrocortisone for now (7) Chronic respiratory failure with hypoxia: Plan: Known interstitial lung disease. Continue oxygen per nasal cannula to maintain saturation greater than 90% saturating 100%, patient on 4 liters at baseline Plan OT and PT evaluations when appropriate. Hopeful discharge back to home yet this week Admission and Anticipated Discharge Date Admission Date: January 16, 2025 Subjective 74 yo female reports having some tightness in her upper abdominal region. Physical Exam Constitutional: WD/WN, vitals as above Neck: trachea midline, no thyromegaly Respiratory: normal respiratory effort, lungs clear to auscultation Cardiovascular: RRR, no murmur, no edema Gastrointestinal (Abdomen): normal bowel sounds, soft, nontender, no hepatosplenomegaly Results & Data Results & Data Vital Signs (Past 12 Hours) Vital Signs Temp Pulse Pulse Resp BP Pulse Ox O2 Del Method 01/17/25 19:23 36.8 C 56 L 18 123/66 100 Nasal Cannula 01/17/25 15:17 36.5 C 57 L 23 109/56 L 100 Nasal Cannula 01/17/25 14:14 57 L 01/17/25 11:14 36.3 C L 54 L 20 123/69 100 Nasal Cannula 01/17/25 09:55 57 L O2 Flow Rate 01/17/25 19:23 01/17/25 15:17 4 01/17/25 14:14 01/17/25 11:14 4 01/17/25 09:55 PG Care Time/CCT Total # of Minutes Spent Total Time Spent with Patient: Total time spent is greater than 50% in coordination of care (as documented) at patient's floor/unit and/or counseling patient: Coding Level of Care Code 05138 SUB INP/OBS CARE 3/50MIN Diagnoses Gastroenteritis K52.9 Volume depletion E86.9 Acute kidney injury superimposed on stage 2 chronic kidney disease N17.9; N18.2 Paroxysmal atrial fibrillation I48.0 Myasthenia gravis G70.00 Steroid dependence F19.20 Chronic respiratory failure with hypoxia J96.11
[2025-01-18 07:18] LABS: Basophils # (auto) 0.01 K/uL (0.00-0.20); Basophils % (auto) 0.1 %; Eosinophils # (auto) 0.08 K/uL (0.00-0.50); Eosinophils % (auto) 1.1 %; Hematocrit (blood only) 28.1 % (37.0-47.0); Hemoglobin 8.4 g/dl (12.0-16.0); Immature Granulocytes # (auto) 0.06 K/uL (0.01-0.20); Immature Granulocytes % (auto) 0.8 %; Lymphocytes # (auto) 0.22 K/uL (1.20-3.40); Mean Corpuscular Hemoglobin 27.4 pg (25.0-34.0); Mean Corpuscular Hgb Conc 29.9 g/dL (32.0-36.0); Mean Corpuscular Volume 91.5 fL (80.0-100.0); Mean Platelet Volume 10.6 fL (9.4-12.4); Monocytes # (auto) 0.72 K/uL (0.11-0.59); Monocytes % (auto) 9.9 %; Neutrophils # (auto) 6.18 K/uL (1.40-6.50); Neutrophils % (auto) 85.1 %; Platelet Count 161 K/uL (130-400); RDW Coefficient of Variation 24.9 % (11.5-14.5); RDW Standard Deviation 82.1 fL (36.4-46.3); Red Blood Count 3.07 M/uL (4.20-5.40); White Blood Count 7.27 K/ul (4.8-10.8)
[2025-01-18 07:44] LABS: Anisocytosis Present; Polychromasia 1+; Tear Drop Cells 2+
[2025-01-18 07:48] LABS: BUN Creatinine Ratio 17.5 (10-20); Calcium 8.6 mg/dl (8.6-10.3); Creatinine Clr Calc Pharmacy 69.4 ml/min; Potassium 3.8 mmol/L (3.5-5.1)
[2025-01-18] MEDS: CALCIUM CARBONATE 500 MG CHEWABLE TAB PO PRN (11:55)
--- NOTE | 2025-01-18 20:12 | Hospitalist Progress Note ---
Date of Service January 18, 2025 Assessment & Plan (1) Gastroenteritis: Plan: Suspected viral etiology despite negative respiratory pathogen panel test results (01/16/2025, 9:48am). Await stool studies. Patient still with diarrhea but frequency has improved to just 1 watery, non- bloody, non-oily diarrheal movement today, 01/18/2025. Ordered repeat hemoglobin as there was a drop in hemoglobin from admission which was probably dilutional: cf., Hb 8.7 g/dL (01/16/2025, 9:21am). cf., Hb 8.1 g/dL (01/17/2025, 5:21am). cf., Hb 8.4 g/dL (01/17/2025, 5:02pm). cf., Hb 8.4 g/dL (01/18/2025, 6:18am). Hence, I have opted to hold off further Hb testing in order to conserve and preserve this patient's maria alejandra blood supply. (2) Volume depletion: Plan: IV fluids. Monitor intake and output (3) Acute kidney injury superimposed on stage 2 chronic kidney disease: Plan: RESOLVING with admission creatinine 1.30, GFR 43.42 mL/min (01/16/2025, 9:21am) decreasing to 0.95, GFR 63.26 mL/min (01/17/2025, 5:21am) to 0.80, GFR 77.75 mL/min (01/18/2025, 6:18am). Continue to hold off IVF and hold off diuretics in setting of diarrhea, which appears to be resolving to just 1 episode of watery, non-bloody, non-oily diarrhea on 01/18/2025. (4) Paroxysmal atrial fibrillation: Plan: Telemetry. Currently in normal sinus rhythm. Continue atenolol and Eliquis (5) Myasthenia gravis: Plan: Steroid-dependent (not only for myasthenia gravis, but also for idiopathic pulmonary fibrosis). Intravenous hydrocortisone for now then eventual switch back to her usual oral prednisone schedule of prednisone 20mg PO qam and prednisone 10mg PO qpm. Continue Mestinon (6) Steroid dependence: Plan: Intravenous hydrocortisone for now (7) Chronic respiratory failure with hypoxia: Plan: Known interstitial lung disease. Continue oxygen per nasal cannula to maintain saturation greater than 90% saturating 100%, patient on 4 liters at baseline Plan OT and PT evaluations when appropriate. Hopeful discharge back to home yet this week Admission and Anticipated Discharge Date Admission Date: January 16, 2025 Subjective "I feel a lot better today. Stronger. Diarrhea is slowing down; just one time with diarrhea today, no blood/no bleeding." Review of Systems 2 Constitutional: Negative for antecedent/coincident fevers, chills, diaphoresis, cough, wheeze, sore throat, hemoptysis, chest pains, palpitations, pleurisy, nausea, vomiting, abdominal pain, pelvic pain, hematemesis, hematochezia, melena, hematuria, dysuria, frequency, urgency, headaches, dizziness, lightheadedness, visual changes, hearing changes, weakness, falls, syncope, trauma, travel history, sick contacts, or food/drug ingestions novel or new. All other review of systems are reported as negative by the patient on 01/18/2025. Physical Exam Constitutional: General: Comfortable, coherent, cooperative; wide awake and alert. Not confused, lethargic, or obtunded. Patient speaks in complete, fluent, and articulate sentences without pause, cough, or wheeze. HEENT: Normocephalic, atraumatic. Extra-ocular muscles intact. Pu pils equally round and reactive to light. No nystagmus, gaze paresis, anisocoria, miosis, mydriasis, hyphema, scleral injection, conjunctivitis, or pterygium. No otorrhea or rhinorrhea. No pharyngeal erythema, edema, or discharge. Neck: Supple, no stridor, bruit, goiter, or hepato-jugular reflux. Jugular venous pressure is estimated to be 3 cm above the sternal angle of Roman, which in turn, is 5 cm above the level of the right atrium; with jugular venous pressure estimated to be 8 cm, then, there is no jugular venous distention on 01/18/2025. Lymphatics: No cervical (anterior/posterior), supraclavicular, infraclavicular, axillary, epitrochlear, or inguinal adenopathy. Chest: Symmetric rise and fall with respirations. Non-tender to palpation. Lungs: Clear to auscultation and percussion. Heart: Regular rate and rhythm. S1 and S2 noted. No S3 or S4 summation gallop. No tripartite friction rub. Grade II/ early systolic murmur @ LLSB without radiation to the carotids, axilla, or back, and which remains invariant in regards to the respiratory cycle. Abdomen: Soft, non-tender, non-distended. No rebound, guarding, Calixto's sign, or organomegaly. Bowel sounds auscultated in all 4 quadrants. Extremities: No clubbing, cyanosis, or edema. 2+ pedal pulses bilaterally. Skin: No decubitus ulcer, exanthem, or enanthem. Genito-urinary: No urethral discharge. No noriega catheter. Neurology: Alert and oriented in regards to person, place, time, and situation. DTR+ and symmetric. 5/5 motor strength in all 4 extremities, both proximally and distally. No pronator drift. No facial droop. No dysarthria. Psychiatry: No homicidal ideation. No suicidal ideation. No flat affect; smiles appropriately. Results & Data Results & Data Vital Signs (Past 12 Hours) Vital Signs Temp Pulse Pulse Resp BP BP Pulse Ox 01/18/25 19:47 36.5 C 60 18 145/73 H 100 01/18/25 15:42 36.5 C 59 L 14 120/64 100 01/18/25 11:24 90 01/18/25 11:23 36.7 C 70 18 112/60 96 01/18/25 08:56 O2 Del Method O2 Flow Rate 01/18/25 19:47 Nasal Cannula 4 01/18/25 15:42 Nasal Cannula 4 01/18/25 11:24 01/18/25 11:23 Nasal Cannula 01/18/25 08:56 Nasal Cannula 4 Laboratory Results 01/16/25 11:31 Urine Culture - Final Urine,Clean Catch Klebsiella pneumoniae 01/18/25 01/18/25 08:56 06:18 WBC 7.27 RBC 3.07 L Hgb 8.4 L Hct 28.1 L MCV 91.5 MCH 27.4 MCHC 29.9 L RDW Std Deviation 82.1 H RDW Coeff of [place] 24.9 H Plt Count 161 MPV 10.6 Immature Gran % (Auto) 0.8 Neut % (Auto) 85.1 Lymph % (Auto) 3.0 [place] % (Auto) 9.9 Eos % (Auto) 1.1 Baso % (Auto) 0.1 Neut # (Auto) 6.18 Lymph # (Auto) 0.22 L [place] # (Auto) 0.72 H Eos # (Auto) 0.08 Baso # (Auto) 0.01 Immature Gran # (Auto) 0.06 Polychromasia 1+ Anisocytosis Present Tear Drop Cells 2+ Sodium 144 Potassium 3.8 Chloride 110 H Carbon Dioxide 32 Anion Gap 2 L BUN 14 Creatinine 0.80 Est Cr Clr Drug Dosing 69.4 eGFR 77.75 BUN/Creatinine Ratio 17.5 Glucose 91 Calcium 8.6 Procalcitonin 0.32 PG Care Time/CCT Total # of Minutes Spent Total Time Spent with Patient: Total time spent is greater than 50% in coordination of care (as documented) at patient's floor/unit and/or counseling patient: Coding Level of Care Code 95980 SUB INP/OBS CARE 2/35MIN Diagnoses Gastroenteritis K52.9 Volume depletion E86.9 Acute kidney injury superimposed on stage 2 chronic kidney disease N17.9; N18.2 Paroxysmal atrial fibrillation I48.0 Myasthenia gravis G70.00 Steroid dependence F19.20 Chronic respiratory failure with hypoxia J96.11
[2025-01-19 10:10] LABS: Basophils # (auto) 0.03 K/uL (0.00-0.20); Basophils % (auto) 0.4 %; Eosinophils # (auto) 0.05 K/uL (0.00-0.50); Eosinophils % (auto) 0.7 %; Hematocrit (blood only) 31.9 % (37.0-47.0); Hemoglobin 9.4 g/dl (12.0-16.0); Immature Granulocytes # (auto) 0.04 K/uL (0.01-0.20); Immature Granulocytes % (auto) 0.6 %; Lymphocytes # (auto) 0.27 K/uL (1.20-3.40); Lymphocytes % (auto) 3.9 %; Mean Corpuscular Hemoglobin 26.7 pg (25.0-34.0); Mean Corpuscular Hgb Conc 29.5 g/dL (32.0-36.0); Mean Corpuscular Volume 90.6 fL (80.0-100.0); Mean Platelet Volume 11.5 fL (9.4-12.4); Monocytes # (auto) 0.67 K/uL (0.11-0.59); Monocytes % (auto) 9.7 %; Neutrophils # (auto) 5.83 K/uL (1.40-6.50); Neutrophils % (auto) 84.7 %; Platelet Count 205 K/uL (130-400); RDW Coefficient of Variation 24.7 % (11.5-14.5); RDW Standard Deviation 81.1 fL (36.4-46.3); Red Blood Count 3.52 M/uL (4.20-5.40); White Blood Count 6.89 K/ul (4.8-10.8)
[2025-01-19 10:29] LABS: Anisocytosis Present; Polychromasia 1+
[2025-01-19 10:50] LABS: BUN Creatinine Ratio 12.5 (10-20); Calcium 9.1 mg/dl (8.6-10.3); Creatinine Clr Calc Pharmacy 67.4 ml/min; Potassium 3.8 mmol/L (3.5-5.1)
[2025-01-19 16:51] VITALS: BP 125/72; PULSE 81; RESP 16; TEMP 97.9; O2SAT 97
--- NOTE | 2025-01-19 18:31 | Discharge Summary ---
Discharge Summary Date of Service January 19, 2025 Principal Dx & Hospital Course #1 = Principal Diagnosis (1) Gastroenteritis: Suspected viral etiology despite negative respiratory pathogen panel test results (01/16/2025, 9:48am). Patient's complaints of diarrhea improved to just 1 watery, non-bloody, non-oily diarrheal movement on 01/18/2025 and no episodes of diarrhea on discharge date 01/19/2025. Of note, patient's hemoglobin demonstrated a decline in hemoglobin levels from admission date 01/16/2025, and which was probably dilutional: cf., Hb 8.7 g/dL (01/16/2025, 9:21am). cf., Hb 8.1 g/dL (01/17/2025, 5:21am). cf., Hb 8.4 g/dL (01/17/2025, 5:02pm). cf., Hb 8.4 g/dL (01/18/2025, 6:18am). Hence, I opted to hold off further Hb testing in order to conserve and preserve this patient's maria alejandra blood supply. Of note, patient did not require or receive any packed RBC transfusions while in [facility]. (2) Volume depletion: Due to (a) acute viral gastroenteritis and to (b) acute bactrim-resistant Klebsiella pneumoniae UTI. Patient received IV fluids while in [facility]. Patient will not continue with IV fluids on hospital discharge back to patient's home on 01/19/2025. Instead, patient will start a low fat, low sodium diet after hospital discharge back to patient's home on 01/19/2025. (3) Acute kidney injury superimposed on stage 2 chronic kidney disease: RESOLVED with admission creatinine 1.30, GFR 43.42 mL/min (01/16/2025, 9:21am) decreasing to 0.95, GFR 63.26 mL/min (01/17/2025, 5:21am) to 0.80, GFR 77.75 mL/min (01/18/2025, 6:18am)(01/19/2025, 7:40am). Continue to hold off IVF and hold off diuretics in setting of diarrhea, which appears to be resolving to just 1 episode of watery, non-bloody, non-oily diarrhea on 01/18/2025. (4) Paroxysmal atrial fibrillation: Telemetry. Currently in normal sinus rhythm. Continue patient's home-scheduled rate-controlling atenolol 12.5mg PO bid, home-scheduled rhythm-controlling amiodarone 200mg PO bid, and home-scheduled eliquis 5mg PO bid. (5) Myasthenia gravis: Steroid-dependent (not only to treat myasthenia gravis, but also to treat idiopathic pulmonary fibrosis). Patient was initially treated with solumedrol 60mg IV x 1 dose (01/16/2025, 11:04am), followed by hydrocortisone 25mg IV q8 (day #1 on 01/16/2025, 5:18pm), followed by hospital discharge back to patient's home on 01/19/2025, where patient will resume her home prednisone schedule of prednisone 20mg PO qam and prednisone 10mg PO qpm. Patient also received her home-scheduled pyridostigmine 60mg PO qid and pyridostigmine 180mg PO qhs while in [facility]. Patient will continue this same regimen on hospital discharge back to patient's home on 01/19/2025. (6) Steroid dependence: Steroid-dependent (not only to treat myasthenia gravis, but also to treat idiopathic pulmonary fibrosis). Patient was initially treated with solumedrol 60mg IV x 1 dose (01/16/2025, 11:04am), followed by hydrocortisone 25mg IV q8 (day #1 on 01/16/2025, 5:18pm), followed by hospital discharge back to patient's home on 01/19/2025, where patient will resume her home prednisone schedule of prednisone 20mg PO qam and prednisone 10mg PO qpm. (7) Chronic respiratory failure with hypoxia: Known interstitial lung disease (e.g., idiopathic pulmonary fibrosis on 4 liters/minute O2 via nasal cannula [id number] at home and in [facility]). Patient will continue 4 liters/minute O2 via nasal cannula [id number] on hospital discharge back to patient's home on 01/19/2025. In addition, patient was initially treated with solumedrol 60mg IV x 1 dose (01/16/2025, 11:04am), followed by hydrocortisone 25mg IV q8 (day #1 on 01/16/2025, 5:18pm), followed by hospital discharge back to patient's home on 01/19/2025, where patient will resume her home prednisone schedule of prednisone 20mg PO qam and prednisone 10mg PO qpm. (8) Chronic diastolic CHF (congestive heart failure): Not acute exacerbation of chronic diastolic CHF while in [facility] as patient reported no weight gain, paroxysmal nocturnal dyspnea, orthopnea, or platypnea while in [facility]. Hence cf., TTE (09/26/2021 TTE): 1. LVEF 65%; type I diastolic dysfunction. 2. Mild concentric LVH. 3. No regional wall motion abnormalities. 4. Indeterminate LA pressure. 5. Normal RV size and function. 6. Normal LA. 7. Normal RA. 8. No evidence of intra-cardiac or intra-pulmonary shunt. 9. Normal aortic root and ascending aorta. 10.Normal IVC size with reduced (<50%) inspiratory collapse. 11.Mildly calcified, tricuspid aortic valve without stenosis or insufficiency. 12.Normal MV. 13.Unremarkable PV. 14.Unremarkable TV. Trace TR. 15.Normal PA pressures. (as per CARDS Dr. Hesham Owens). Hence, patient received medical management of chronic diastolic CHF by adhering to daily weights, strict I/O, home-scheduled atenolol 12.5mg PO bid and sacubitril 24mg - valsartan 26mg PO bid while in [facility]. Patient will continue this same regimen on hospital discharge back to patient's home on 01/19/2025. Of note, patient did not require or receive any diuretic medication(s) while in [facility] given her relative state of acute dehydration / hypovolemia induced by acute bactrim-resistant Klebsiella pneumoniae UTI. (9) CARRIE (obstructive sleep apnea): Asymptomatic on auto-titrating CPAP at home and in [facility]. Asymptomatic with no complaints of daytime somnolence. Hence, patient will continue with auto-titrating CPAP on hospital discharge back to patient's home on 01/19/2025. (10) UTI due to Klebsiella species: Acute bactrim-resistant, otherwise, brannon-sensitive Klebsiella pneumoniae UTI (as noted on 01/16/2025, 11:31am urine culture). Patient received ceftriaxone 2g IV daily x 4 doses (01/16/2025, 2:00pm; 01/17/2025, 2:00pm; 01/18/2025, 2:00pm; 01/19/2025, 2:00pm) while in [facility]. Patient will not continue with empiric antibiotics on hospital discharge back to patient's home on 01/19/2025, as 3 days of antibiotic treatment is sufficient to treat this acute bactrim-resistant, otherwise, brannon- sensitive Klebsiella pneumoniae UTI (as noted on 01/16/2025, 11:31am urine culture). Discharge time, 35 minutes. Of this time period, 19 minutes were spent in coordinating patient's discharge. Admission HPI Per Admitting Provider 74-year-old white female who developed symptoms of viral gastroenteritis last evening with nausea vomiting and diarrhea. She denies hematemesis melena or hematochezia. No other family members are ill. She denies chest pain. She denies fever. No recent travels Discharge Exam Constitutional General: Comfortable, coherent, cooperative; wide awake and alert. Not confused, lethargic, or obtunded. Patient speaks in complete, fluent, and articulate sentences without pause, cough, or wheeze. HEENT: Normocephalic, atraumatic. Extra-ocular muscles intact. Pupils equally round and reactive to light. No nystagmus, gaze paresis, anisocoria, miosis, mydriasis, hyphema, scleral injection, conjunctivitis, or pterygium. No otorrhea or rhinorrhea. No pharyngeal erythema, edema, or discharge. Neck: Supple, no stridor, bruit, goiter, or hepato-jugular reflux. Jugular venous pressure is estimated to be 3 cm above the sternal angle of Roman, which in turn, is 5 cm above the level of the right atrium; with jugular venous pressure estimated to be 8 cm, then, there is no jugular venous distention on 01/19/2025. Lymphatics: No cervical (anterior/posterior), supraclavicular, infraclavicular, axillary, epitrochlear, or inguinal adenopathy. Chest: Symmetric rise and fall with respirations. Non-tender to palpation. Lungs: Clear to auscultation and percussion. Heart: Regular rate and rhythm. S1 and S2 noted. No S3 or S4 summation gallop. No tripartite friction rub. Grade II/ early systolic murmur @ LLSB without radiation to the carotids, axilla, or back, and which remains invariant in regards to the respiratory cycle. Abdomen: Soft, non-tender, non-distended. No rebound, guarding, Calixto's sign, or organomegaly. Bowel sounds auscultated in all 4 quadrants. Extremities: No clubbing, cyanosis, or edema. 2+ pedal pulses bilaterally. Skin: No decubitus ulcer, exanthem, or enanthem. Genito-urinary: No urethral discharge. No noriega catheter. Neurology: Alert and oriented in regards to person, place, time, and situation. DTR+ and symmetric. 5/5 motor strength in all 4 extremities, both proximally and distally. No pronator drift. No facial droop. No dysarthria. Psychiatry: No homicidal ideation. No suicidal ideation. No flat affect; smiles appropriately. Discharge Plan Discharge Items Patient Disposition: Home - Self-Care Reason For Visit: VIRAL GE, VOLUME DEPLETION Discharge Diagnosis: 1. Acute viral gastroenteritis. 2. Acute bactrim-resistant Klebsiella pneumoniae UTI. Activity: Resume your previous activity Lifting: Gradually increase as tolerated Bathing: No limitations Sexual Activity: When tolerated Exercise/Sports: Gradually increase as tolerated Driving/Machine Use: No limitations Weightbearing: Full weightbearing Non-emergency contact: Primary Care Provider Call non-emergency contact if: you have any medication questions Follow-up/Referrals: Deng Lezama, [Primary Care Provider] - Diet: Heart Healthy and Low Sodium (2gm) Addtl Attending Provider Instructions: See your PCP Dr. Deng Lezama to discuss outpatient wound care for your chronic right medial benítez ulcer. Pending Studies at Discharge: No Stand-Alone Forms: [email or web address], Smoking Cessation Medications and DC Order Prescriptions: Continued epinephrine [EpiPen 2-Kyaw] 0.3 mg/0.3 mL auto-injector 0.3 mg IM Q15M PRN (Reason: anaphylaxis) Qty: 2 3RF Rx Instructions: For weekly infusions (DME) Oxygen Home Liters Per Minute See Rx Instructions .Route Qty: 1 0RF Rx Instructions: Discontinue Oxygen famotidine [Acid Registered Veterinary Technician (famotidine)] 20 mg tablet 20 mg PO DAILY Qty: 90 2RF Rx Instructions: Verified w/ Pharmacy this was shipped out on 11/2024 x90 day supply Hizentra 10 gram/50 mL (20 %) solution See Rx Instructions SUBCUT .COMPLEX Qty: 50 11RF Rx Instructions: 11 gm subcut every week (Pt does 10gm w/ 1gm syringe) APPROVED 09/20/24-09/20/25 [id number] teriparatide 20 mcg/dose (600mcg/2.4mL) pen injector 20 mcg subcut DAILY Qty: 2.4 11RF Rx Instructions: Unable to verify this medication at this date/time. levothyroxine 175 mcg tablet 175 mcg PO QAM Qty: 30 2RF Eliquis 5 mg tablet 5 mg PO BID (DME) CPAP Supplies Misc See Rx Instructions .MEDSUPPLY Qty: 1 0RF Rx Instructions: CPAP supplies. G47.33 (DME) Auto Titrating CPAP Misc See Rx Instructions .MEDSUPPLY Qty: 1 0RF Rx Instructions: Auto PAP with 4-16cm H20. Lifetime usage. G47.33 prednisone 10 mg tablet 10 mg PO DAILY Patient Comments: 20mg qam/10mg at lunch time Rx Instructions: Take 10mg w/ 20mg to equal 30mg by mouth daily. pyridostigmine bromide [Mestinon] 60 mg tablet 60 mg PO QID pyridostigmine bromide [Mestinon Timespan] 180 mg tablet extended release 180 mg PO HS sertraline 100 mg tablet 100 mg PO QAM atenolol 25 mg tablet 12.5 mg PO BID azathioprine [Imuran] 50 mg tablet 50 mg PO BID Patient Comments: Pt reports she takes 50mg in AM 50 MG in PM colestipol 1 gram tablet 2 g PO BID cyanocobalamin (vitamin B-12) 1,000 mcg/mL Solution 1,000 mcg IM MONTHLY prednisone 20 mg tablet 20 mg PO DAILY Rx Instructions: Take 20mg w/ 10mg to equal 30mg by mouth daily. Entresto 24-26 mg Tablet 1 tab PO BID Rx Instructions: Verified w/ Pharmacy this was shipped out on 01/09/2025. Pt may not have started this medication yet. amiodarone 200 mg tablet 200 mg PO BID Rx Instructions: Verified w/ Pharmacy this was shipped out on 01/15/25. Pt may not have started this medication yet Hizentra 1 gram/5 mL (20 %) syringe See Rx Instructions .ROUTE .COMPLEX Rx Instructions: 11 gm subcut every week (Pt does 10gm w/ 1gm syringe) Discontinued sulfamethoxazole-trimethoprim [Bactrim DS] 800-160 mg tablet 1 tab PO [id number] Rx Instructions: 1 tab orally 1 tab on [id number]-[id number]-[id number]; Start Date 12/12/24 x70 day supply Discharge Orders: Discharge Order (Routine); Ordered 01/19/25 Ordered By: Angelito Rios Admission Data Admit Date/Time: 01/16/25 14:32 Attending Provider: Angelito Rios Admit Provider: Drake Tucker Primary Care Provider: Deng Lezama Other Providers: [facility] Hospital Stay Data Diagnostic Imagining Performed 01/16/25 09:50 CT abd pelvis IV con only Stat 01/16/25 11:16 CT angio chest PE protocol Stat Pending Results Patient Have Any Pending Studies at Discharge: No Discharge Instructions Given to Patient (Per Discharging Provider) See your PCP Dr. Deng Lezama to discuss outpatient wound care for your chronic right medial benítez ulcer. Total Time Total Time Spent Total Time Spent (In Minutes): 35 Coding Level of Care Code 01692 INP/OBS DISCH >30 MIN Diagnoses Gastroenteritis K52.9 Volume depletion E86.9 Acute kidney injury superimposed on stage 2 chronic kidney disease N17.9; N18.2 Paroxysmal atrial fibrillation I48.0 Myasthenia gravis G70.00 Steroid dependence F19.20 Chronic respiratory failure with hypoxia J96.11 Chronic diastolic CHF (congestive heart failure) I50.32 CARRIE (obstructive sleep apnea) G47.33 UTI due to Klebsiella species N39.0; B96.89
== END 2025-01-19 18:27 | disposition home health service (06) | DRG 392 ==
LOC: ED 08:37 → INTOOBSV 14:32 → SUATTDRO 14:32 → EDINP 14:32 → 2S 17:09